=== PATIENT | female | born 1965 | race Hispanic/Latino ===

== ENCOUNTER → 2019-05-18 | Outpatient (CLI) | payer MEDICARE, OTHER ==
[~2019-05-18] MED LIST: CALCIUM CARBON500 MG PO; DICYCLOMINE HCL10 MG PO; FOLIC ACID1 MG PO; HYDROCODON-ACE1 EAC9 PO; HYDROXYCHLOROQ200 MG PO; IOPAMIDOL 370 MG/ML 200 ML INFUS..BTL INJ ONE; IRON PEG; LEVOTHYROXINE125 MCG PEG; METFORMIN HCL500 MG PO; MULTI-VITAMIN1 EACH PO; PANTOPRAZOLE SO40 MG PO; PREDNISONE5 MG PO; SODIUM CHLORIDE 0.9% 50ML 50 ML ONE; SPIRONOLACTONE25 MG PO; ULTRAM50 MG PO; VITAMIN B-121000 MCG PO; VITAMIN C500 M1 PO; VITAMIN D2400 UNIT PO; VITAMIN D31000 UNIT PO; VOLTAREN100 GM TOP; ZOFRAN8 MG PO
[2019-05-18 09:15] LABS: BLOOD UREA NITROGEN 10 mg/dL (7-26); BUN/CREATININE RATIO 11 (6-25); CREATININE, SERUM 0.92 mg/dL (0.57-1.11); EST GLOMERULAR FILTRATION RATE > 60 ML/MIN (60-)
--- NOTE | 2019-05-18 10:19 | Diagnostic Imaging Report ---
EXAM: CT Abdomen and Pelvis WITH intravenous contrast INDICATION: Abnormal weight loss, nausea, vomiting. Personal history of gastric cancer COMPARISON: None. TECHNIQUE: Abdomen and pelvis were scanned utilizing a multidetector helical scanner from the lung base to the pubic symphysis after administration of IV contrast. Coronal and sagittal reformations were obtained. Routine protocol was performed. Scan was performed when during portal venous phase. IV CONTRAST: 100mL of Isovue 370 ORAL CONTRAST: Water COMPLICATIONS: None RADIATION DOSE: Total DLP: 559.7 mGy*cm Dose modulation, iterative reconstruction, and/or weight based adjustment of the mA/kV was utilized to reduce the radiation dose to as low as reasonably achievable. FINDINGS: LOWER THORAX: No focal lung base consolidation. Atherosclerotic coronary artery calcifications. HEPATOBILIARY: Hepatic steatosis. No focal liver lesions. Status post cholecystectomy. SPLEEN: Diminutive spleen. PANCREAS: Fatty atrophy of the pancreatic tail. Pancreas head not well visualized. ADRENALS: No adrenal nodules. KIDNEYS/URETERS: No hydronephrosis, stones, or solid mass lesions. PELVIC ORGANS/BLADDER: Unremarkable. PERITONEUM / RETROPERITONEUM: No free air or fluid. LYMPH NODES: No lymphadenopathy. VESSELS: Atherosclerotic arterial calcifications, most notably an extremely densely calcified splenic artery. GI TRACT: Status post gastrectomy. No evidence of bowel obstruction. Mild wall thickening of the descending and sigmoid colon. BONES AND SOFT TISSUES: Mild diffuse muscular atrophy. Postoperative changes of the anterior abdominal wall. Age indeterminate T12 compression fracture. Multilevel degenerative changes of the spine. Diffuse osteopenia. No suspicious lytic or blastic lesions. IMPRESSION: Mild wall thickening of the descending and sigmoid colon could be seen in colitis. Postoperative changes of prior gastrectomy. Hepatic steatosis. Age-indeterminate T12 compression fracture. Signed by: Susi Kessler MD on 05/18/2019 10:16 AM
== END ==
LOC: CT 08:37
PROVIDERS: ATTEND Internal Medicine Gastroenterology
DX: R10.9 Unspecified abdominal pain (principal); R11.2 Nausea with vomiting, unspecified; R63.4 Abnormal weight loss; K76.0 Fatty (change of) liver, not elsewhere classified; Z85.09 Personal history of malignant neoplasm of other digestive organs
CPT/HCPCS: 36415; 74177; 82565; 84520; Q9967

== ENCOUNTER → 2019-06-06 | Day surgery (SDC) | payer MEDICARE ==
[2019-05-29 16:26] LABS: BASOPHILS % 0.6 % (0.0-1.0); EOSINOPHILS % 0.2 % (0.0-6.0); HEMATOCRIT 39.5 % (34.2-44.1); HEMOGLOBIN 13.2 g/dL (12.0-16.0); LYMPHOCYTES # (AUTO) 0.8 (1.0-3.2); MEAN CORPUSCULAR HEMOGLOBIN 33.9 pg (28-32); MEAN CORPUSCULAR HGB CONC 33.4 g/dL (31-35); MEAN CORPUSCULAR VOLUME 101.5 fL (81-99); MONOCYTES # (AUTO) 0.4 (0.2-0.8); MONOCYTES % 7.6 % (4.4-11.3); PLATELET COUNT 147 x10e3/uL (140-360); RED BLOOD COUNT 3.89 x10e6/uL (3.6-5.1); RED CELL DISTRIBUTION WIDTH 13.5 % (11.7-14.4)
[2019-05-29 16:42] LABS: INR 0.99; PROTHROMBIN TIME 13.6 seconds (11.9-14.5)
[2019-05-29 16:43] LABS: PARTIAL THROMBOPLASTIN TIME 30.7 seconds (23.8-35.5)
[2019-05-29 16:49] LABS: ALANINE AMINOTRANSFERASE 23 IU/L (0-55); ALBUMIN 3.1 g/dL (3.5-5.0); ALBUMIN/GLOBULIN RATIO 1.1 (0.8-2.0); ALKALINE PHOSPHATASE 103 IU/L (40-150); ANION GAP 9.5 mmol/L (8-16); BLOOD UREA NITROGEN 9 mg/dL (7-26); BUN/CREATININE RATIO 11 (6-25); CALCIUM 9.1 mg/dL (8.4-10.2); CARBON DIOXIDE 30 mmol/L (22-29); CHLORIDE 104 mmol/L (98-107); CREATININE, SERUM 0.82 mg/dL (0.57-1.11); EST GLOMERULAR FILTRATION RATE > 60 ML/MIN (60-); GLUCOSE 93 mg/dL (74-118); POTASSIUM 4.5 mmol/L (3.5-5.1); SODIUM 139 mmol/L (136-145)
[~2019-06-06] MED LIST changes: +FENTANYL CITRATE/PF 100MCG/2 ML INJ ONE; +HYOSCYAMINE 0.125 MG TAB ONE; -IOPAMIDOL 370 MG/ML 200 ML INFUS..BTL INJ ONE; +MIDAZOLAM HCL 2 MG/2 ML VIAL ONE; +PROPOFOL IV EMULSION 10 MG/ML 50 ML VIAL ONE; -SODIUM CHLORIDE 0.9% 50ML 50 ML ONE
--- OUTSIDE RECORDS SUMMARY | 2019-06-06 08:35 | XMS REPORT | Continuity of Care Document ---
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 Active Problem 06/02/2019 Prakash Moseleyer Lymphopenia Active Problem 06/02/2019 Prakash Jeanette Rheumatoid arthritis without rheumatoid factor, multiple sites Active Problem 06/02/2019 Prakash Moseleyer Sialoadenitis Active Problem 06/02/2019 Prakash Reid Acute bilateral low back pain without sciatica Active Diagnosis 04/21/2017 Prakash Reid Abnormal ultrasound of neck Active Diagnosis 07/22/2017 Prakash Jeanette Mass in neck Active Diagnosis 07/22/2017 Prakash Moseleyer Neck mass Active Problem 06/02/2019 Prakash Reid Need for prophylactic vaccination and inoculation against influenza Active Problem 06/02/2019 Prakash Reid 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 Active Diagnosis 04/06/2018 Prakash Jeanette rn long term care current use of opiate analgesic Active Diagnosis 06/21/2017 Prakash Jeanette Thoracic back pain Active Diagnosis 12/20/2017 Prakash Reid Lumbar back pain Active Diagnosis 12/20/2017 Prkaash Jeanette Neutropenia, unspecified Active Problem 09/18/2016 Prakash Jeanette Abnormal Lab Test Active Problem 09/18/2016 Prakash Moseleyer Osteoporosis, postmenopausal Active Problem 09/04/2015 Prakash Reid Unspecified drug dependence Active Problem 09/18/2016 Prakash Moseleyer Sjogren's Disease Active Problem 09/18/2016 Prakash Jeanette Rheumatoid arthritis Active Problem 09/18/2016 Prakash Reid Long-term (current) use of other medications - High Risk Active Problem 09/18/2016 Prakash Reid Postmenopausal status (age-related) Active Problem 09/18/2016 Prakash Reid Drug dependence Active Diagnosis 11/15/2015 Prakash Reid Influenza vaccine administered Active Diagnosis 11/15/2015 Prakash Reid Rheumatoid arthritis of multiple sites without rheumatoid factor Active Diagnosis 01/30/2016 Prakash Reid Encounter for long-term (current) use of other high-risk medications Active Diagnosis 01/30/2016 Prakash Reid Other abnormal glucose Active Diagnosis 08/26/2018 Prakash Reid Upper respiratory disease Active Diagnosis 09/29/2018 Prakash Reid Neck pain Active Diagnosis 07/29/2018 Prakash Reid Medications Medication Details Route Status Patient Instructions Ordering Provider Order Date Source Hydroxychloroquine Sulfate 2 TABLETS WITH FOOD OR MILK Orally Active 200 MG Orally Once a day Reid 06/01/2019 Prakash Reid PredniSONE 2 tablets Orally Active 5 MG Orally Once a day [place] 06/01/2019 Prakash Reid PredniSONE 2 tablets Orally Active 5 MG Orally Once a day [place] 03/13/2019 Prakash Reid Hydroxychloroquine Sulfate 2 TABLETS WITH FOOD OR MILK Orally Active 200 MG Orally Once a day [place] 02/28/2019 Prakash Reid Plaquenil 2 tablets Orally Active 200 MG Orally once a day [place] 12/20/2018 Prakash Reid Folic Acid 2 tablets Orally Active 1 MG Orally twice a day [place] 12/20/2018 Prakash Reid PredniSONE 2 tablets Orally Active 5 MG Orally Once a day [place] 12/13/2018 Prakash Reid Hydroxychloroquine Sulfate 2 TABLETS WITH FOOD OR MILK Orally Active 200 MG Orally Once a day [place] 12/13/2018 Prakash Reid Tramadol HCl 1 tablet Orally Active 50 MG Orally 3 times a day [place] 12/13/2018 Prakash Reid Amoxicillin 1 capsule Orally Active 500 MG Orally every 8 hrs [place] 09/25/2018 Prakash Reid Hydrocodone-Acetaminophen 1 tablet as needed Orally Active 10- 325 MG Orally three times a day [place] 05/27/2018 Prakash Reid Hydroxychloroquine Sulfate 2 TABLETS WITH FOOD OR MILK Orally Active 200 MG Orally Once a day [place] 04/13/2018 Prakash Reid Tramadol one tab orally Active 50 mg orally 4 - 6 hours as needed [place] 02/22/2018 Prakash Reid Cyclobenzaprine HCl 1 tablet as needed Orally Active 10 MG Orally Three times a day [place] 12/15/2017 Prakash Reid Plaquenil 2 tablets Orally Active 200 MG Orally once a day [place] 10/18/2017 Prakash Reid Tramadol one tab orally Active 50 mg orally 4 - 6 hours as needed [place] 10/18/2017 Prakash Reid Clindamycin HCl 1 capsule Orally Active 300 MG Orally every 8 hrs [place] 07/20/2017 Prakash Reid Hydrocodone-Acetaminophen 1 tablet as needed Orally Active 10- 325 MG Orally three times a day [place] 06/20/2017 Prakash Moseleyer Hydrocodone-Acetaminophen 1 tablet as needed Orally Active 10- 325 MG Orally three times a day [place] 06/20/2017 Prakash Reid Hydrocodone-Acetaminophen 1 tablet as needed Orally Active 10- 325 MG Orally three times a day [place] 06/16/2017 Prakash Reid PredniSONE 2 TABLETS with food or milk Orally Active 5 MG Orally Once a day [place] 05/23/2017 Prakash Reid Tramadol HCl 1 tablet Orally Active 50 MG Orally 3 times a day [place] 05/23/2017 Prakash Reid Hydroxychloroquine Sulfate 2 TABLETS WITH FOOD OR MILK Orally Active 200 MG Orally Once a day [place] 05/23/2017 Prakash Reid PredniSONE take 2 tablets by mouth once a day with food Orally Active 5 MG Orally Once a day [place] 03/15/2017 Prakash Reid Voltaren as directed Transdermal Active 1 % Transdermal Four times a day as needed [place] 12/14/2016 Prakash Reid Hydrocodone-Acetaminophen 1 tablet as needed Orally Active 10- 325 MG Orally three times a day [place] 08/18/2016 Prakash Reid Plaquenil take 2 tablets with food or milk once a day orally Orally Active 200 MG Orally Once a day [place] 08/15/2016 Prakash Reid Hydrocodone-Acetaminophen 1 tablet as needed Orally Active 10- 325 MG Orally three times a day [place] 06/16/2016 Prakash Reid [place] 1 tablet as needed Orally Active 10-325 MG Orally every 8 hours [place] 05/15/2016 Prakashrosa Reid [place] 1 tablet as needed Orally Active 10-325 MG Orally every 8 hours [place] 04/18/2016 Prakash Reid [place] 1 tablet as needed Orally Active 10-325 MG Orally every 6 hrs [place] 03/17/2016 Prakash Reid Tramadol HCl take one tablet Orally Active 50 MG Orally 3 times a day [place] 03/14/2016 Prakash Reid Plaquenil 2 tablet with food or milk Orally Active 200 MG Orally Once a day [place] 03/10/2016 Prakash Reid PredniSONE TAKE TWO TABLETS BY MOUTH DAILY WITH FOOD Orally Active 5 Orally Once a day [place] 03/10/2016 Prakash Reid Tramadol HCl Take One Tablet Orally Active 50 MG Orally 3 times a day [place] 03/10/2016 Prakash Reid PredniSONE TAKE TWO TABLETS BY MOUTH DAILY WITH FOOD Orally Active 5 Orally Once a day [place] 01/14/2016 Prakash Reid Hydrocodone-Acetaminophen 1 tablet as needed Orally Active 10- 325 MG Orally three times a day [place] 09/10/2015 Prakashrosa Reid Hydrocodone-Acetaminophen 1 tablet as needed Orally Active 10- 325 MG Orally three times a day [place] 07/12/2015 Prakash Reid Tramadol HCl Take one tablet Orally Active 50 Orally three times a day [place] 06/20/2015 Prakash Reid Methotrexate 5 tablets Orally Active 2.5mg Orally Once a week [facility] 12/12/2014 Prakash Reid Hydrocodone-Acetaminophen 1 tablet as needed Orally Active 10- 325 MG Orally three times a day [place] 12/07/2014 Prakash Reid Amoxicillin 1 capsule Orally Active 500 MG Orally Three times a day [facility] 11/14/2014 Prakashrosa Reid Hydrocodone-Acetaminophen 1 tablet as needed Orally Active 10- 325 MG Orally Three times a day [place] 10/11/2014 Prakash Reid Hydrocodone-Acetaminophen 1 tablet as needed Orally Active 10- 325 MG Orally three times a day [place] 10/09/2014 Prakashrosa Reid Tramadol HCl Take One Tablet Orally Active 50 MG Orally Three Times a day [facility] 07/03/2014 Prakash Reid Amoxicillin one caqpsule Orally Active 500 MG Orally tid [place] 02/11/2014 Prakash Reid [place] 1 tablet as needed for pain Orally Active 10-325 MG Orally three times a day (tid) [place] 07/23/2010 Prakash Reid Spironolactone 1 tablet Orally Active 25 MG Orally once a day [place] Prakash Reid Tramadol one tab orally Active 50 mg orally 4 - 6 hours as needed [place] Prakash Reid PredniSONE 2 tablets Orally Active 5 MG Orally Once a day [place] Prakash Reid Dicyclomine HCl 1 capsule Orally Active 10 MG Orally three times a day [place] Prakash Reid Plaquenil 2 tablets NA Active 200 MG once a day [place] [facility] Hydrocodone-Acetaminophen 1 tablet as needed Orally Active 10- 325 MG Orally three times a day [place] [facility] Vitamin C 1 tablet Orally Active 1000 MG Orally Once a day [place] [facility] Cal[facility] one tab orally Active 1000 mg orally daily [place] [facility] Folic Acid 2 tablets NA Active 1 MG twice a day [place] [facility] Iron 1 tablet Orally Active 65 MG Orally Once a day [place] [facility] Levoxyl 1 tablet of each NA Active 100mg/150mg once a day [place] [facility] Advil 1 tablet as needed Orally Active Orally as needed [place] [facility] Voltaren as directed Transdermal Active 1 % Transdermal Four times a day as needed [place] [facility] Multivitamins 1 tablet Orally Active Orally Once a day [place] [facility] Vitamin D (Ergocalciferol) 1 capsule Orally Active 50,000 Orally once a week [place] [facility] Vitamin D-3 1 capsule Orally Active 1000 UNIT Orally Once a day [place] [facility] Zofran as needed Orally Active 8 MG Orally as needed [place] [facility] Vitamin B12 as directed Sublingual Active Sublingual Once a day [place] [facility] Vitamin D (Ergocalciferol) 1 capsule Orally Active 24724 UNIT Orally once a week [place] [facility] Zofran as needed Orally Active 8 MG Orally as needed [place] [facility] Spironolactone 1 tablet Orally Active 25 MG Orally once a day [place] [facility] Vitamin D-3 1 capsule Orally Active 1000 UNIT Orally Once a day [place] [facility] Advil 1 tablet as needed Orally Active Orally as needed [place] [facility] Levoxyl 1 tablet of each NA Active 100mg/150mg once a day [place] [facility] PredniSONE 2 tablets Orally Active 5 MG Orally Once a day [place] [facility] Plaquenil TAKE 2 TABLETS BY MOUTH ONCE A DAY NA Active 200 MG [place] [facility] Multivitamins 1 tablet Orally Active Orally Once a day [place] [facility] Hydrocodone-Acetaminophen 1 tablet as needed Orally Active 10- 325 MG Orally three times a day [place] Prakash Reid Voltaren as directed Transdermal Active 1 % Transdermal Four times a day as needed [place] Prakash Reid Dicyclomine HCl 1 capsule Orally Active 10 MG Orally three times a day [place] Prakash Moseleyer Folic Acid 2 tablets Orally Active 1 MG Orally twice a day [place] Prakash Moseleyer Vitamin B12 as directed Sublingual Active Sublingual Once a day [place] Prakash Moseleyer Vitamin C 1 tablet Orally Active 1000 MG Orally Once a day [place] Prakash Reid PredniSONE 2 tablets Orally Active 5 MG Orally Once a day [place] Prakash Reid Plaquenil 2 tablets Orally Active 200 MG [facility] Diabetic Siltussin-DM 10 ml as needed Orally Active 100-10 MG/5ML Orally every 4 hrs [place] Prakash Reid Tramadol HCl 1 tablet as needed Orally Active 50 MG Orally TID [place] Prakash Reid Diclofenac Sodium apply topically Transdermal Active 1 % Transdermal 4 times daily to affected area prn [place] Prakash Reid Folic Acid 2 tablets orally Active 1 MG orally twice a day [place] Prakash Reid Zovia 35E (28) 1 tablet NA Active once a day [place] Prakash Reid Folic Acid TAKE TWO TABLETS BY MOUTH TWICE A DAY NA Active 1 [place] Prakash Reid Levoxyl 1 tablet of each NA Active 100mg/150mg once a day [place] Prakash Reid Hydrocodone-Acetaminophen 1 tablet as needed Orally Active 10- 325 MG Orally three times a day [facility] Prakash Reid PredniSONE TAKE ONE TABLET BY MOUTH EVERY DAY WITH FOOD NA Active 5 [place] Prakash Reid Hydroxychloroquine Sulfate TAKE TWO TABLETS BY MOUTH EVERY DAY WITH FOOD OR DRINK NA Active 200 [place] Prakash Reid Vitamin D (Ergocalciferol) 1 capsule Orally Active 07843 UNIT Orally once a week [facility] Prakash Reid Iron as directed Orally Active 65 MG Orally once a day [place] Prakash Reid Tramadol HCl Take One Tablet Orally Active 50 MG Orally 3 times a day [place] Prakashrosa eRid Plaquenil take 2 tablets with food or milk once a day orally Orally Active 200 MG Orally Once a day [place] Praaksh Reid Vitamin D (Ergocalciferol) TAKE ONE CAPSULE BY MOUTH ONCE WEEKLY NA Active 50,000 [place] Prakash Reid Voltaren as directed Transdermal Active 1 % Transdermal prn [place] Prakash Reid Hydroxychloroquine Sulfate TAKE TWO TABLETS BY MOUTH DAILY WITH FOOD OR DRINK NA Active 200 [place] Prakash Reid PredniSONE take two ablets by mouth every day with food Orally Active 5 MG Orally Once a day [place] Prakash Reid Calcium one tab orally Active 1000 mg orally daily [place] Prakash Reid Amlodipine Besylate 1 tablet Orally Active 5 MG Orally Once a day [place] Prakash Reid Tramadol one tab orally Active 50 mg orally 4 - 6 hours as needed [place] Prakash Reid PredniSONE 2 tablets Orally Active 5 MG Orally Once a day [place] Prakash Reid Oxycodone-Acetaminophen 1 tablet as needed Orally Active 10-325 MG Orally every 6 hrs [place] Prakash Reid Hydroxychloroquine Sulfate 2 TABLETS WITH FOOD OR MILK Orally Active 200 MG Orally Once a day [place] Prakash Reid Omeprazole 1 capsule Orally Active 20 MG Orally Once a day [place] Prakash Reid Levoxyl 1 tablet of each Orally Active 125 MCG Orally once a day [place] Prakash Reid Allergies, Adverse Reactions, Alerts Substance Category Reaction Severity Reaction type Status Date Reported Comments Source Enbrel SureClick Adverse Reaction developed stomach cancer after initiation Adverse Reaction Active 03/28/2019 Prakash Reid Sulfa Adverse Reaction itching Adverse Reaction Active 03/28/2019 Prakash Reid Immunizations Immunization Date Given Site Status Last Updated Comments Source Flu Vaccine 08/24/2018 completed Prakash Reid Flu Vaccine 08/18/2017 completed Prakash Reid Flu Vaccine 07/19/2016 completed Prakash Reid Flu Vaccine 08/11/2015 completed Prakash Reid Results No Data Provided for This Section Pathology Reports No Data Provided for This Section Diagnostic Reports No Data Provided for This Section Consultation Notes No Data Provided for This Section Discharge Summaries No Data Provided for This Section History and Physicals No Data Provided for This Section Vital Signs Vital Sign Value Date Comments Source Weight 171.2 03/28/2019 Prakash Reid Height 63 03/28/2019 Prakash Reid Temperature Oral (F) 98.7 F 03/28/2019 Prakash Reid Heart Rate 80 03/28/2019 Prakash Reid Diastolic (mm Hg) 78 03/28/2019 Prakash Reid Systolic (mm Hg) 118 03/28/2019 Prakash Reid Weight 175.9 02/26/2019 Prakash Reid Height 64 02/26/2019 Prakash Reid Temperature Oral (F) 97.9 F 02/26/2019 Prakash Reid Heart Rate 74 02/26/2019 Prakash Reid Diastolic (mm Hg) 68 02/26/2019 Prakash Reid Systolic (mm Hg) 110 02/26/2019 Prakash Reid Weight 172.2 12/26/2018 Prakash Reid Height 64 12/26/2018 Prakash Reid Temperature Oral (F) 97.0 F 12/26/2018 Prakash Reid Heart Rate 72 12/26/2018 Prakash Reid Diastolic (mm Hg) 64 12/26/2018 Prakash Reid Systolic (mm Hg) 108 12/26/2018 Prakash Reid Weight 172.6 11/28/2018 Prakash Reid Height 63 11/28/2018 Prakash Reid Temperature Oral (F) 97.3 F 11/28/2018 Prakash Reid Heart Rate 72 11/28/2018 Prakash Reid Diastolic (mm Hg) 64 11/28/2018 Prakash Reid Systolic (mm Hg) 105 11/28/2018 Prakash Reid Weight 181.7 10/23/2018 Prakash Reid Height 63 10/23/2018 Prakash Reid Temperature Oral (F) 98.1 F 10/23/2018 Prakash Reid Heart Rate 70 10/23/2018 Prakash Reid Diastolic (mm Hg) 68 10/23/2018 Prakash Reid Systolic (mm Hg) 110 10/23/2018 Prakash Reid Weight 179.6 09/25/2018 Prakash Reid Height 63 09/25/2018 Prakash Reid Temperature Oral (F) 98.7 F 09/25/2018 Prakash Reid Heart Rate 73 09/25/2018 Prakash Reid Diastolic (mm Hg) 70 09/25/2018 Prakash Reid Systolic (mm Hg) 110 09/25/2018 Prakash Reid Weight 184.7 08/24/2018 Prakash Reid Height 64.5 08/24/2018 Prakash Reid Temperature Oral (F) 97.1 F 08/24/2018 Prakash Reid Heart Rate 74 08/24/2018 Prakash Reid Diastolic (mm Hg) 80 08/24/2018 Prakash Reid Systolic (mm Hg) 122 08/24/2018 Prakash Reid Weight 189.7 07/24/2018 Prakash Reid Height 64.5 07/24/2018 Prakash Reid Temperature Oral (F) 97.8 F 07/24/2018 Prakash Reid Heart Rate 76 07/24/2018 Prakash Reid Diastolic (mm Hg) 80 07/24/2018 Prakash Reid Systolic (mm Hg) 120 07/24/2018 Prakash Reid Weight 189 06/28/2018 Prakash Reid Height 64.5 06/28/2018 Prakash Reid Temperature Oral (F) 98.3 F 06/28/2018 Prakash Reid Heart Rate 80 06/28/2018 Prakash Reid Diastolic (mm Hg) 78 06/28/2018 Prakash Reid Systolic (mm Hg) 116 06/28/2018 Prakash Reid Weight 198.2 05/23/2018 Prakash Reid Height 63.5 05/23/2018 Prakash Reid Temperature Oral (F) 97.9 F 05/23/2018 Prakash Reid Heart Rate 76 05/23/2018 Prakash Reid Diastolic (mm Hg) 68 05/23/2018 Prakash Reid Systolic (mm Hg) 142 05/23/2018 Prakash Reid Weight 200.1 04/27/2018 Prakash Reid Height 63.5 04/27/2018 Prakash Reid Temperature Oral (F) 98.1 F 04/27/2018 Prakash Reid Heart Rate 74 04/27/2018 Prakash Reid Diastolic (mm Hg) 70 04/27/2018 Prakash Reid Systolic (mm Hg) 110 04/27/2018 Prakash Reid Weight 197.3 03/24/2018 Prakash Reid Height 63.5 03/24/2018 Prakash Reid Temperature Oral (F) 97.5 F 03/24/2018 Prakash Reid Heart Rate 70 03/24/2018 Prakash Reid Diastolic (mm Hg) 70 03/24/2018 Prakash Reid Systolic (mm Hg) 102 03/24/2018 Prakash Reid Weight 196 02/23/2018 Prakash Reid Height 63.5 02/23/2018 Prakash Reid Temperature Oral (F) 97.3 F 02/23/2018 Prakash Reid Heart Rate 68 02/23/2018 Prakash Reid Diastolic (mm Hg) 72 02/23/2018 Prakash Reid Systolic (mm Hg) 116 02/23/2018 Prakash Reid Weight 196 01/16/2018 Prakash Reid Height 65 01/16/2018 Prakash Reid Temperature Oral (F) 97.1 F 01/16/2018 Prakash Reid Heart Rate 76 01/16/2018 Prakash Reid Diastolic (mm Hg) 74 01/16/2018 Prakash Reid Systolic (mm Hg) 118 01/16/2018 Prakash Reid Weight 198.6 12/15/2017 Prakash Reid Height 64 12/15/2017 Prakash Reid Temperature Oral (F) 97.4 F 12/15/2017 Prakash Reid Heart Rate 78 12/15/2017 Prakash Reid Diastolic (mm Hg) 70 12/15/2017 Prakash Reid Systolic (mm Hg) 110 12/15/2017 Prakash Reid Weight 195.2 11/24/2017 Prakash Reid Height 64 11/24/2017 Prakash Reid Temperature Oral (F) 97.8 F 11/24/2017 Prakash Reid Heart Rate 80 11/24/2017 Prakash Reid Diastolic (mm Hg) 74 11/24/2017 Prakash Reid Systolic (mm Hg) 100 11/24/2017 Prakash Reid Weight 199.5 10/18/2017 Prakash Reid Height 64 10/18/2017 Prakash Reid Temperature Oral (F) 97.6 F 10/18/2017 Prakash Reid Heart Rate 82 10/18/2017 Prakash Reid Diastolic (mm Hg) 68 10/18/2017 Prakash Reid Systolic (mm Hg) 100 10/18/2017 Prakash Reid Weight 195.0 09/19/2017 Prakash Reid Height 64 09/19/2017 Prakash Reid Temperature Oral (F) 98.2 F 09/19/2017 Prakash Reid Heart Rate 80 09/19/2017 Prakash Reid Diastolic (mm Hg) 74 09/19/2017 Prakash Reid Systolic (mm Hg) 102 09/19/2017 Prakash Reid Weight 200.9 08/18/2017 Prakash Reid Height 64 08/18/2017 Prakash Reid Temperature Oral (F) 98.1 F 08/18/2017 Prakash Reid Heart Rate 80 08/18/2017 Prakash Reid Diastolic (mm Hg) 60 08/18/2017 Prakash Reid Systolic (mm Hg) 110 08/18/2017 Prakash Reid Weight 203.7 07/20/2017 Prakash Reid Height 66 07/20/2017 Prakash Reid Temperature Oral (F) 97.3 F 07/20/2017 Prakash Reid Heart Rate 76 07/20/2017 Prakash Reid Diastolic (mm Hg) 70 07/20/2017 Prakash Reid Systolic (mm Hg) 118 07/20/2017 Prakash Reid Weight 199.2 06/20/2017 Prakash Reid Height 66 06/20/2017 Prakash Reid Temperature Oral (F) 97.4 F 06/20/2017 Prakash Reid Heart Rate 70 06/20/2017 Prakash Reid Diastolic (mm Hg) 76 06/20/2017 Prakash Reid Systolic (mm Hg) 120 06/20/2017 Prakash Reid Weight 197.7 05/17/2017 Prakash Reid Height 65 05/17/2017 Prakash Reid Temperature Oral (F) 97.5 F 05/17/2017 Prakash Reid Heart Rate 70 05/17/2017 Prakash Reid Diastolic (mm Hg) 70 05/17/2017 Prakash Reid Systolic (mm Hg) 110 05/17/2017 Prakash Reid Weight 204 04/18/2017 Prakash Reid Height 65 04/18/2017 Prakash Reid Temperature Oral (F) 97.6 F 04/18/2017 Prakash Reid Heart Rate 76 04/18/2017 Prakash Reid Diastolic (mm Hg) 72 04/18/2017 Prakash Reid Systolic (mm Hg) 120 04/18/2017 Prakash Reid Weight 201.9 03/17/2017 Prakash Reid Height 65 03/17/2017 Prakash Reid Temperature Oral (F) 98.4 F 03/17/2017 Prakash Reid Heart Rate 72 03/17/2017 Prakash Reid Diastolic (mm Hg) 70 03/17/2017 Prakash Reid Systolic (mm Hg) 112 03/17/2017 Prakash Reid Weight 201 02/14/2017 Prakash Reid Height 66 02/14/2017 Prakash Reid Temperature Oral (F) 98.1 F 02/14/2017 Prakash Reid Heart Rate 80 02/14/2017 Prakash Reid Diastolic (mm Hg) 70 02/14/2017 Prakash Reid Systolic (mm Hg) 120 02/14/2017 Prakash Reid Weight 201 01/17/2017 Prakash Reid Height 66 01/17/2017 Prakash Reid Temperature Oral (F) 97.9 F 01/17/2017 Prakash Reid Heart Rate 76 01/17/2017 Prakash Reid Diastolic (mm Hg) 70 01/17/2017 Prakash Reid Systolic (mm Hg) 100 01/17/2017 Prakash Reid Weight 197 12/15/2016 Prakash Reid Height 66 12/15/2016 Prakash Reid Temperature Oral (F) 97.7 F 12/15/2016 Prakash Reid Heart Rate 70 12/15/2016 Prakash Reid Diastolic (mm Hg) 70 12/15/2016 Prakash Reid Systolic (mm Hg) 108 12/15/2016 Prakash Reid Weight 196 11/17/2016 Prakash Reid Height 65 11/17/2016 Prakash Reid Temperature Oral (F) 98.4 F 11/17/2016 Prakash Reid Heart Rate 72 11/17/2016 Prakash Reid Diastolic (mm Hg) 70 11/17/2016 Prakash Reid Systolic (mm Hg) 112 11/17/2016 Prakash Reid Weight 195 10/15/2016 Prakash Reid Height 65 10/15/2016 Prakash Reid Temperature Oral (F) 97.9 F 10/15/2016 Prakash Reid Heart Rate 70 10/15/2016 Prakash Reid Diastolic (mm Hg) 68 10/15/2016 Prakash Reid Systolic (mm Hg) 112 10/15/2016 Prakash Reid Weight 197.4 09/16/2016 Prakash Reid Height 65 09/16/2016 Prakash Reid Temperature Oral (F) 97.3 F 09/16/2016 Prakash Reid Heart Rate 70 09/16/2016 Prakash Reid Diastolic (mm Hg) 70 09/16/2016 Prakash Reid Systolic (mm Hg) 110 09/16/2016 Prakash Reid Weight 203 08/18/2016 Prakash Reid Height 66 08/18/2016 Prakash Reid Temperature Oral (F) 97.7 F 08/18/2016 Prakash Reid Heart Rate 70 08/18/2016 Prakash Reid Diastolic (mm Hg) 60 08/18/2016 Prakash Reid Systolic (mm Hg) 102 08/18/2016 Prakash Reid Weight 196 07/19/2016 Prakash Reid Height 66 07/19/2016 Prakash Reid Temperature Oral (F) 97.9 F 07/19/2016 Prakash Reid Heart Rate 72 07/19/2016 Prakash Reid Diastolic (mm Hg) 68 07/19/2016 Prakash Reid Systolic (mm Hg) 116 07/19/2016 Prakash Reid Weight 198 06/17/2016 Prakash Reid Height 66 06/17/2016 Prakash Reid Temperature Oral (F) 97.1 F 06/17/2016 Prakash Reid Heart Rate 76 06/17/2016 Prakash Reid Diastolic (mm Hg) 72 06/17/2016 Prakash Reid Systolic (mm Hg) 110 06/17/2016 Prakash Reid Weight 201 05/17/2016 Prakash Reid Height 65 05/17/2016 Prakash Reid Temperature Oral (F) 98.4 F 05/17/2016 Prakash Reid Heart Rate 80 05/17/2016 Prakash Reid Diastolic (mm Hg) 60 05/17/2016 Prakash Reid Systolic (mm Hg) 108 05/17/2016 Prakash Reid Weight 200 04/15/2016 Prakash Reid Height 66 04/15/2016 Prakash Reid Temperature Oral (F) 96.8 F 04/15/2016 Prakash Reid Heart Rate 80 04/15/2016 Prakash Reid Diastolic (mm Hg) 60 04/15/2016 Prakash Reid Systolic (mm Hg) 120 04/15/2016 Prakash Reid Weight 196.9 03/19/2016 Prakash Reid Height 66 03/19/2016 Prakash Reid Temperature Oral (F) 96.6 F 03/19/2016 Prakash Reid Heart Rate 72 03/19/2016 Prakash Reid Diastolic (mm Hg) 72 03/19/2016 Prakash Reid Systolic (mm Hg) 112 03/19/2016 Prakash Reid Weight 199 02/16/2016 Prakash Reid Height 66 02/16/2016 Prakash Reid Temperature Oral (F) 98.3 F 02/16/2016 Prakash Reid Heart Rate 72 02/16/2016 Prakash Reid Diastolic (mm Hg) 70 02/16/2016 Prakash Reid Systolic (mm Hg) 122 02/16/2016 Prakash Reid Weight 188 01/12/2016 Prakash Reid Height 66 01/12/2016 Prakash Reid Temperature Oral (F) 97.7 F 01/12/2016 Prakash Reid Heart Rate 72 01/12/2016 Prakash Reid Diastolic (mm Hg) 70 01/12/2016 Prakash Reid Systolic (mm Hg) 118 01/12/2016 Prakash Reid Weight 197 12/12/2015 Prakash Reid Height 66 12/12/2015 Prakash Reid Temperature Oral (F) 98.1 F 12/12/2015 Prakash Reid Heart Rate 76 12/12/2015 Prakash Reid Diastolic (mm Hg) 73 12/12/2015 Prakash Reid Systolic (mm Hg) 113 12/12/2015 Prakash Reid Weight 195 11/13/2015 Prakash Reid Height 66 11/13/2015 Prakash Reid Temperature Oral (F) 97.8 F 11/13/2015 Prakash Reid Heart Rate 72 11/13/2015 Prakash Reid Diastolic (mm Hg) 74 11/13/2015 Prakash Reid Systolic (mm Hg) 110 11/13/2015 Prakash Reid Weight 206 09/12/2015 Prakash Reid Height 66 09/12/2015 Prakash Reid Temperature Oral (F) 98.1 F 09/12/2015 Prakash Reid Heart Rate 76 09/12/2015 Prakash Redi Diastolic (mm Hg) 72 09/12/2015 Prakash Reid Systolic (mm Hg) 112 09/12/2015 Prakash Reid Weight 199 08/11/2015 Prakash Reid Height 66 08/11/2015 Prakash Reid Temperature Oral (F) 97.6 F 08/11/2015 Prakash Reid Heart Rate 78 08/11/2015 Prakash Reid Diastolic (mm Hg) 76 08/11/2015 Prakash Reid Systolic (mm Hg) 110 08/11/2015 Prakash Reid Weight 206 06/12/2015 Prakash Reid Height 66 06/12/2015 Prakash Reid Temperature Oral (F) 98.2 F 06/12/2015 Prakash Reid Heart Rate 72 06/12/2015 Prakash Reid Diastolic (mm Hg) 80 06/12/2015 Prakash Reid Systolic (mm Hg) 124 06/12/2015 Prakash Reid Weight 209 04/15/2015 Prakash Reid Height 66 04/15/2015 Prakash Reid Temperature Oral (F) 98.0 F 04/15/2015 Prakash Reid Heart Rate 78 04/15/2015 Prakash Reid Diastolic (mm Hg) 72 04/15/2015 Prakash Reid Systolic (mm Hg) 112 04/15/2015 Prakash Reid Weight 203 02/13/2015 Prakash Reid Height 66 02/13/2015 Prakash Reid Temperature Oral (F) 98.4 F 02/13/2015 Prakash Reid Heart Rate 84 02/13/2015 Prakash Reid Diastolic (mm Hg) 72 02/13/2015 Prakash Reid Systolic (mm Hg) 114 02/13/2015 Prakash Reid Weight 214 12/12/2014 Prakash Reid Height 66 12/12/2014 Prakash Reid Temperature Oral (F) 98.6 F 12/12/2014 Prakash Reid Heart Rate 70 12/12/2014 Prakash Reid Diastolic (mm Hg) 70 12/12/2014 Prakash Reid Systolic (mm Hg) 120 12/12/2014 Prakash Reid Weight 204 11/14/2014 Prakash Reid Height 66 11/14/2014 Prakash Reid Temperature Oral (F) 98.6 F 11/14/2014 Prakash Reid Heart Rate 74 11/14/2014 Prakash Reid Diastolic (mm Hg) 82 11/14/2014 Prakash Reid Systolic (mm Hg) 116 11/14/2014 Prakash Reid Weight 234 02/11/2014 Prakash Reid Height 65 02/11/2014 Prakash Reid Temperature Oral (F) 97.7 F 02/11/2014 Prakash Reid Heart Rate 80 02/11/2014 Prakash Reid Diastolic (mm Hg) 80 02/11/2014 Prakash Reid Systolic (mm Hg) 128 02/11/2014 Prakash Reid Encounters Location Location Details Encounter Type Encounter Number Reason For Visit Attending Provider ADM Date DC Date Status Source Robert Reid MD 4m f/u [id number] 02/11/2014 02/11/2014 Prakash Reid MD 4m f/u [id number] 02/11/2014 02/11/2014 Prakash Reid MD 4m f/u [id number] 02/11/2014 02/11/2014 Prakash Reid MD 4m f/u [id number] 02/11/2014 02/11/2014 Prakash Reid MD 4m f/u [id number] 02/11/2014 02/11/2014 Prakash Reid MD 4m f/u [id number] 02/11/2014 02/11/2014 Prakash Reid MD 4m f/u [id number] 02/11/2014 02/11/2014 Prakash Reid MD 4m f/u [id number] 02/11/2014 02/11/2014 Prakash Reid MD 4m f/u [id number] 02/11/2014 02/11/2014 Prakash Reid MD 4m f/u [id number] 02/11/2014 02/11/2014 Prakash Reid MD 4m f/u [id number] 02/11/2014 02/11/2014 Prakash Reid MD 4m f/u [id number] 02/11/2014 02/11/2014 Prakash Reid MD 4m f/u [id number] 02/11/2014 02/11/2014 Prakash Reid MD 4m f/u [id number] 02/11/2014 02/11/2014 Prakash Reid MD 4m f/u [id number] 02/11/2014 02/11/2014 Prakash Reid MD 4m f/u [id number] 02/11/2014 02/11/2014 Prakash Reid MD 4m f/u [id number] 02/11/2014 02/11/2014 Prakash Reid MD 4m f/u [id number] 02/11/2014 02/11/2014 Prakash Reid MD 4m f/u [id number] 02/11/2014 02/11/2014 Prakash Reid MD 4m f/u [id number] 02/11/2014 02/11/2014 Prakash Reid MD 4m f/u [id number] 02/11/2014 02/11/2014 Prakash Reid MD 4m f/u [id number] 02/11/2014 02/11/2014 Prakash Reid MD 4m f/u [id number] 02/11/2014 02/11/2014 Prakash Reid MD 4m f/u [id number] 02/11/2014 02/11/2014 Prakash Reid MD 4m f/u [id number] 02/11/2014 02/11/2014 Prakash Reid MD 4m f/u [id number] 02/11/2014 02/11/2014 Prakash Reid MD 4m f/u [id number] 02/11/2014 02/11/2014 Prakash Reid MD 4m f/u [id number] 02/11/2014 02/11/2014 Prakash Reid MD 4m f/u [id number] 02/11/2014 02/11/2014 Prakash Reid MD 4m f/u [id number] 02/11/2014 02/11/2014 Prakash Reid MD 4m f/u [id number] 02/11/2014 02/11/2014 Prakash Reid MD 4m f/u [id number] 02/11/2014 02/11/2014 Prakash Reid MD 4m f/u [id number] 02/11/2014 02/11/2014 Prakash Reid MD 4m f/u [id number] 02/11/2014 02/11/2014 Prakash Reid MD 4m f/u [id number] 02/11/2014 02/11/2014 Prakash Reid MD 4m f/u [id number] 02/11/2014 02/11/2014 Prakash Reid MD 4m f/u [id number] 02/11/2014 02/11/2014 Prakash Reid MD 4m f/u [id number] 02/11/2014 02/11/2014 Prakash Reid MD 4m f/u [id number] 02/11/2014 02/11/2014 Prakash Reid MD 4m f/u [id number] 02/11/2014 02/11/2014 Prakash Reid MD 4m f/u [id number] 02/11/2014 02/11/2014 Prakash Reid MD [facility] [id number] 02/15/2014 02/15/2014 Prakash Reid MD [facility] [id number] 02/15/2014 02/15/2014 Prakash Reid MD [facility] [id number] 02/15/2014 02/15/2014 Prakash Reid MD [facility] [id number] 02/15/2014 02/15/2014 Prakash Reid MD [facility] [id number] 02/15/2014 02/15/2014 Prakash Reid MD [facility] [id number] 02/15/2014 02/15/2014 Prakash Reid MD [facility] [id number] 02/15/2014 02/15/2014 Prakash Reid MD [facility] [id number] 02/15/2014 02/15/2014 Prakash Reid MD [facility] [id number] 02/15/2014 02/15/2014 Prakash Reid MD [facility] [id number] 02/15/2014 02/15/2014 Prakash Reid MD [facility] [id number] 02/15/2014 02/15/2014 Prakash Reid MD [facility] [id number] 02/15/2014 02/15/2014 Prakash Reid MD [facility] [id number] 02/15/2014 02/15/2014 Prakash Reid MD [facility] [id number] 02/15/2014 02/15/2014 Prakash Reid MD [facility] [id number] 02/15/2014 02/15/2014 Prakash Reid MD [facility] [id number] 02/15/2014 02/15/2014 Prakash Reid MD [facility] [id number] 02/15/2014 02/15/2014 Prakash Reid MD [facility] [id number] 02/15/2014 02/15/2014 Prakash Reid MD [facility] [id number] 02/15/2014 02/15/2014 Prakash Reid MD [facility] [id number] 02/15/2014 02/15/2014 Prakash Reid MD [facility] [id number] 02/15/2014 02/15/2014 Prakash Reid MD [facility] [id number] 02/15/2014 02/15/2014 Prakash Reid MD [facility] [id number] 02/15/2014 02/15/2014 Prakash Reid MD [facility] [id number] 02/15/2014 02/15/2014 Prakash Reid MD [facility] [id number] 02/15/2014 02/15/2014 Prakash Reid MD [facility] [id number] 02/15/2014 02/15/2014 Prakash Reid MD [facility] [id number] 02/15/2014 02/15/2014 Prakash Reid MD [facility] [id number] 02/15/2014 02/15/2014 Prakash Reid MD [facility] [id number] 02/15/2014 02/15/2014 Prakash Reid MD [facility] [id number] 02/15/2014 02/15/2014 Prakash Reid MD [facility] [id number] 02/15/2014 02/15/2014 Prakash Reid MD [facility] [id number] 02/15/2014 02/15/2014 Prakash Reid MD [facility] [id number] 02/15/2014 02/15/2014 Prakash Reid MD [facility] [id number] 02/15/2014 02/15/2014 Prakash Reid MD [facility] [id number] 02/15/2014 02/15/2014 Prakash Reid MD [facility] [id number] 02/15/2014 02/15/2014 Prakash Reid MD [facility] [id number] 02/15/2014 02/15/2014 Prakash Reid MD [facility] [id number] 02/15/2014 02/15/2014 Prakash Reid MD [facility] [id number] 02/15/2014 02/15/2014 Prakash Reid MD [facility] [id number] 02/15/2014 02/15/2014 Prakash Reid MD [facility] [id number] 02/15/2014 02/15/2014 Prakash Reid MD folic acid [id number] 02/18/2014 02/18/2014 Prakash Reid MD folic acid [id number] 02/18/2014 02/18/2014 Prakash Reid MD folic acid [id number] 02/18/2014 02/18/2014 Prakash Reid MD folic acid [id number] 02/18/2014 02/18/2014 Prakash Reid MD folic acid [id number] 02/18/2014 02/18/2014 Prakash Reid MD folic acid [id number] 02/18/2014 02/18/2014 Prakash Reid MD folic acid [id number] 02/18/2014 02/18/2014 Prakash Reid MD folic acid [id number] 02/18/2014 02/18/2014 Prakash Reid MD folic acid [id number] 02/18/2014 02/18/2014 Prakash Reid MD folic acid [id number] 02/18/2014 02/18/2014 Prakash Reid MD folic acid [id number] 02/18/2014 02/18/2014 Prakash Reid MD folic acid [id number] 02/18/2014 02/18/2014 Prakash Reid MD folic acid [id number] 02/18/2014 02/18/2014 Prakash Reid MD folic acid [id number] 02/18/2014 02/18/2014 Prakash Reid MD folic acid [id number] 02/18/2014 02/18/2014 Prakash Reid MD folic acid [id number] 02/18/2014 02/18/2014 Prakash Reid MD folic acid [id number] 02/18/2014 02/18/2014 Prakash Reid MD folic acid [id number] 02/18/2014 02/18/2014 Prakash Reid MD folic acid [id number] 02/18/2014 02/18/2014 Prakash Reid MD folic acid [id number] 02/18/2014 02/18/2014 Prakash Reid MD folic acid [id number] 02/18/2014 02/18/2014 Prakash Reid MD folic acid [id number] 02/18/2014 02/18/2014 Prakash Reid MD folic acid [id number] 02/18/2014 02/18/2014 Prakash Reid MD folic acid [id number] 02/18/2014 02/18/2014 Prakash Reid MD folic acid [id number] 02/18/2014 02/18/2014 Prakash Reid MD folic acid [id number] 02/18/2014 02/18/2014 Prakash Reid MD folic acid [id number] 02/18/2014 02/18/2014 Prakash Reid MD folic acid [id number] 02/18/2014 02/18/2014 Prakash Reid MD folic acid [id number] 02/18/2014 02/18/2014 Prakash Reid MD folic acid [id number] 02/18/2014 02/18/2014 Prakash Reid MD folic acid [id number] 02/18/2014 02/18/2014 Prakash Reid MD folic acid [id number] 02/18/2014 02/18/2014 Prakash Reid MD folic acid [id number] 02/18/2014 02/18/2014 Prakash Reid MD folic acid [id number] 02/18/2014 02/18/2014 Prakash Reid MD folic acid [id number] 02/18/2014 02/18/2014 Prakash Reid MD folic acid [id number] 02/18/2014 02/18/2014 Prakash Reid MD folic acid [id number] 02/18/2014 02/18/2014 Prakash Reid MD folic acid [id number] 02/18/2014 02/18/2014 Prakash Reid MD folic acid [id number] 02/18/2014 02/18/2014 Prakash Reid MD RX Refill Request [id number] 06/25/2014 06/25/2014 Prakash Reid MD RX Refill Request [id number] 06/25/2014 06/25/2014 Prakash Reid MD RX Refill Request [id number] 06/25/2014 06/25/2014 Prakash Reid MD RX Refill Request [id number] 06/25/2014 06/25/2014 Prakash Reid MD RX Refill Request [id number] 06/25/2014 06/25/2014 Prakash Reid MD RX Refill Request [id number] 06/25/2014 06/25/2014 Prakash Reid MD RX Refill Request [id number] 06/25/2014 06/25/2014 Prakash Reid MD RX Refill Request [id number] 06/25/2014 06/25/2014 Prakash Reid MD RX Refill Request [id number] 06/25/2014 06/25/2014 Prakash Reid MD RX Refill Request [id number] 06/25/2014 06/25/2014 Prakash Reid MD RX Refill Request [id number] 06/25/2014 06/25/2014 Prakash Reid MD RX Refill Request [id number] 06/25/2014 06/25/2014 Prakash Reid MD RX Refill Request [id number] 06/25/2014 06/25/2014 Prakash Reid MD RX Refill Request [id number] 06/25/2014 06/25/2014 Prakash Reid MD RX Refill Request [id number] 06/25/2014 06/25/2014 Prakash Reid MD RX Refill Request [id number] 06/25/2014 06/25/2014 Prakash Reid MD RX Refill Request [id number] 06/25/2014 06/25/2014 Prakash Reid MD RX Refill Request [id number] 06/25/2014 06/25/2014 Prakash Reid MD RX Refill Request [id number] 06/25/2014 06/25/2014 Prakash Reid MD RX Refill Request [id number] 06/25/2014 06/25/2014 Prakash Reid MD RX Refill Request [id number] 06/25/2014 06/25/2014 Prakash Reid MD RX Refill Request [id number] 06/25/2014 06/25/2014 Prakash Reid MD RX Refill Request [id number] 06/25/2014 06/25/2014 Prakash Reid MD RX Refill Request [id number] 06/25/2014 06/25/2014 Prakash Reid MD RX Refill Request [id number] 06/25/2014 06/25/2014 Prakash Reid MD RX Refill Request [id number] 06/25/2014 06/25/2014 Prakash Reid MD RX Refill Request [id number] 06/25/2014 06/25/2014 Prakash Reid MD RX Refill Request [id number] 06/25/2014 06/25/2014 Prakash Reid MD RX Refill Request [id number] 06/25/2014 06/25/2014 Prakash Reid MD RX Refill Request [id number] 06/25/2014 06/25/2014 Prakash Reid MD RX Refill Request [id number] 06/25/2014 06/25/2014 Prakash Reid MD RX Refill Request [id number] 06/25/2014 06/25/2014 Prakash Reid MD RX Refill Request [id number] 06/25/2014 06/25/2014 Prakash Reid MD RX Refill Request [id number] 06/25/2014 06/25/2014 Prakash Reid MD RX Refill Request [id number] 06/25/2014 06/25/2014 Prakash Reid MD RX Refill Request [id number] 06/25/2014 06/25/2014 Prakash Reid MD RX Refill Request [id number] 06/25/2014 06/25/2014 Prakash Reid MD RX Refill Request [id number] 06/25/2014 06/25/2014 Prakash Reid MD RX Fax Failure [id number]-3u18-650n-q459-sg91vg414ja3 07/03/2014 07/03/2014 Prakash Reid MD RX Fax Failure [id number]-2s3t-9064-hxc8-35zrzt00d940 07/03/2014 07/03/2014 Prakash Reid MD RX Fax Failure p5904g3t-7027-1v94-d10p-8o7w8p1ndy89 07/03/2014 07/03/2014 Prakash Reid MD RX Fax Failure 2x051t91-p79b-7498-931h-z7yo54u4wo7w 07/03/2014 07/03/2014 Prakash Reid MD RX Fax Failure 97e310qn-3j9g-2iy1-seg0-ag5clyid019r 07/03/2014 07/03/2014 Prakash Reid MD RX Fax Failure s32izt91-qrr5-4654-4942-0535gy5p2e0c 07/03/2014 07/03/2014 Prakash Reid MD RX Fax Failure g3751610-m6h2-469d-k947-9k0t70ni9rb9 07/03/2014 07/03/2014 Prakash Reid MD RX Fax Failure 698aqt31-s120-25f4-mb7x-0g6r0m6h2153 07/03/2014 07/03/2014 Prakash Reid MD RX Fax Failure 22772a10-69lr-6150-1048-447qlcs8r42r 07/03/2014 07/03/2014 Prakash Reid MD RX Fax Failure 8z025k57-9166-764s-4a51-31390f4072gj 07/03/2014 07/03/2014 Prakash Reid MD RX Fax Failure r95qfvl6-iywr-446m-4871-m04b019265y3 07/03/2014 07/03/2014 Prakash Reid MD RX Fax Failure 1997xok7-w866-1413-0781-6jia3s59uf1s 07/03/2014 07/03/2014 Prakash Reid MD RX Fax Failure 6x80w18e-8pag-1m86-05xc-3jl76a2n96au 07/03/2014 07/03/2014 Prakash Reid MD RX Fax Failure e6084le2-6ra7-842m-18xf-79x0wzi55hu9 07/03/2014 07/03/2014 Prakash Reid MD RX Fax Failure 6d6203g4-qt97-4fv1-50q9-v73qz8086w46 07/03/2014 07/03/2014 Prakash Reid MD RX Fax Failure 83g5u1gq-8uu5-5242-mllt-06i3iq5a5c48 07/03/2014 07/03/2014 Prakash Reid MD RX Fax Failure 203rookw-fen6-6002-8cff-6dropsl2b806 07/03/2014 07/03/2014 Prakash Reid MD RX Fax Failure 9hb8777j-9969-8dp2-7242-2poepj2wc1pr 07/03/2014 07/03/2014 Prakash Reid MD RX Fax Failure 8d3r1651-20r3-266u-707p-[id number] 07/03/2014 07/03/2014 Prakash Reid MD RX Fax Failure 25n80i43-c1qw-2as4-81e9-6s82gmcbo597 07/03/2014 07/03/2014 Prakash Reid MD RX Fax Failure 0atr4hia-2597-0lyp-i73v-l55w46sx17pl 07/03/2014 07/03/2014 Prakash Reid MD RX Fax Failure 7t741576-7w15-547u-4wz1-b3c3978x6499 07/03/2014 07/03/2014 Prakash Reid MD RX Fax Failure d250s80l-4u52-0uo7-bem1-k2zahe5yq1ii 07/03/2014 07/03/2014 Prakash Reid MD RX Fax Failure 8r3o32n7-j995-41p7-4399-8auofv81234s 07/03/2014 07/03/2014 Prakash Reid MD RX Fax Failure 1vh1c83f-696a-4r48-gdw5-d52c56l90845 07/03/2014 07/03/2014 Prakash Reid MD RX Fax Failure gj62nby7-047j-5rv4-bpdc-6w46v09gj9c3 07/03/2014 07/03/2014 Prakash Reid MD RX Fax Failure 032xc1g3-19dh-58fh-550v-74xo8n263361 07/03/2014 07/03/2014 Prakash Reid MD RX Fax Failure livpdi2w-0448-3hp5-g109-b55t03ta2730 07/03/2014 07/03/2014 Prakash Reid MD RX Fax Failure 01i0558r-vi0w-5802-3z7f-37a1ra4h5v03 07/03/2014 07/03/2014 Prakash Reid MD RX Fax Failure 9eff8g79-2232-57v7-c9r5-a7m2581zg4il 07/03/2014 07/03/2014 Prakash Reid MD RX Fax Failure 4516d080-1z8c-3843-mp7u-2k97tkn4tq5s 07/03/2014 07/03/2014 Prakash Reid MD RX Fax Failure m05tm5j8-hg24-3o55-71wo-4740z68672io 07/03/2014 07/03/2014 Prakash Reid MD RX Fax Failure 06tq53d8-ccvj-36xk-k5h3-5e777539d7s4 07/03/2014 07/03/2014 Prakash Reid MD RX Fax Failure 00yn2326-3r3l-99pv-d901-7k685l929td0 07/03/2014 07/03/2014 Prakash Reid MD RX Fax Failure v0ap413a-scl0-7380-876x-36w726802s15 07/03/2014 07/03/2014 Prakash Reid MD RX Fax Failure 161e9d09-pg79-6207-l1hi-5sea956r91f0 07/03/2014 07/03/2014 Prakash Reid MD RX Fax Failure r8i3h3tw-q6q1-52tf-u3xn-3a135z76091u 07/03/2014 07/03/2014 Prakash Reid MD RX Fax Failure 8277i50r-6xb7-59s5-279a-6urawc0fy064 07/03/2014 07/03/2014 Prakash Reid MD Triplicate-- Hydrocodone 11/2 y95j8bzz-5370-0962-3tr3-05l23z6bk81r 08/07/2014 08/07/2014 Prakash Reid MD Triplicate-- Hydrocodone 11/2 r72h10yx-ok07-9296-z0fq-86jw7j479834 08/07/2014 08/07/2014 Prakash Reid MD Triplicate-- Hydrocodone 11/2 p9q3m5w2-7n34-9l1n-7184-0y028r25j886 08/07/2014 08/07/2014 Prakash Reid MD Triplicate-- Hydrocodone 11/2 1111327v-7v16-6cuy-esf4-0c598o3gc7e5 08/07/2014 08/07/2014 Prakash Reid MD Triplicate-- Hydrocodone 11/2 e8ur6a0g-3t8h-49va-0208-r8a8p7m99d6n 08/07/2014 08/07/2014 Prakash Reid MD Triplicate-- Hydrocodone 11/2 5j34q052-4xw5-77bs-4403-s178637w8pr4 08/07/2014 08/07/2014 Prakash Reid MD Triplicate-- Hydrocodone 11/2 5jd560xw-x926-2l00-7571-vd86my534ee3 08/07/2014 08/07/2014 Prakash Reid MD Triplicate-- Hydrocodone 11/2 n5u10q1b-ds1i-448g-g002-ot7w91q12nbm 08/07/2014 08/07/2014 Prakash Reid MD Triplicate-- Hydrocodone 11/2 5tzh4v77-09x7-081o-g8dk-l7di4si90cnq 08/07/2014 08/07/2014 Prakash Reid MD Triplicate-- Hydrocodone 11/2 [id number]-4qwp-3752-0a7x-6f9j60d33atq 08/07/2014 08/07/2014 Prakash Reid MD Triplicate-- Hydrocodone 11/2 z3741xoy-6389-578w-05r5-2z35m3w3831j 08/07/2014 08/07/2014 Prakash Reid MD Triplicate-- Hydrocodone 11/2 5271go76-g747-231v-27c7-67041o2d4y54 08/07/2014 08/07/2014 Prakash Reid MD Triplicate-- Hydrocodone 11/2 89686xaa-34v0-4e7g-13d0-4n23a48sf67d 08/07/2014 08/07/2014 Prakash Reid MD Triplicate-- Hydrocodone 11/2 u52p442j-5v85-86j5-eg95-9h08761s5109 08/07/2014 08/07/2014 Prakash Reid MD Triplicate-- Hydrocodone 11/2 9s84214h-1806-6ue7-76r0-f88j2dy37851 08/07/2014 08/07/2014 Prakash Reid MD Triplicate-- Hydrocodone 11/2 x81iy660-6x4m-7486-d1i0-xk5838j6169e 08/07/2014 08/07/2014 Prakash Reid MD Triplicate-- Hydrocodone 11/2 288e25ax-w905-68c6-gfvl-b38111284qd0 08/07/2014 08/07/2014 Prakash Reid MD Triplicate-- Hydrocodone 11/2 lw58fwzl-99pl-5qqq-604e-5341j64x4x2j 08/07/2014 08/07/2014 Prakash Reid MD Triplicate-- Hydrocodone 11/2 844b465f-i2h2-9q23-6645-w68d1700wd03 08/07/2014 08/07/2014 Prakash Reid MD Triplicate-- Hydrocodone 11/2 wu5z0i9t-8jq2-1fy4-t8gt-14o8992e9721 08/07/2014 08/07/2014 Prakash Reid MD Triplicate-- Hydrocodone 11/2 24zg4b2v-823w-5s45-ar91-vlvy068ao7o1 08/07/2014 08/07/2014 Prakash Reid MD Triplicate-- Hydrocodone 11/2 61n375d1-689d-18i1-4m9t-246911l528t1 08/07/2014 08/07/2014 Prakash Reid MD Triplicate-- Hydrocodone 11/2 bvup4o2b-fcf1-282t-55ol-89w76a5s9511 08/07/2014 08/07/2014 Prakash Reid MD Triplicate-- Hydrocodone 11/2 7t9a3x18-p216-3l42-7681-6xeg7qi7x3c1 08/07/2014 08/07/2014 Prakash Reid MD Triplicate-- Hydrocodone 11/2 p0xccw4w-f3zs-9m35-n8n9-s6c07l77n171 08/07/2014 08/07/2014 Prakash Reid MD Triplicate-- Hydrocodone 11/2 6106w2d7-0g41-7f9b-7la1-23k5guf10p82 08/07/2014 08/07/2014 Prakash Reid MD Triplicate-- Hydrocodone 11/2 z8y41zp7-n049-5444-lt75-333g1q378clt 08/07/2014 08/07/2014 Prakash Reid MD Triplicate-- Hydrocodone 11/2 ucj659qk-9e25-556h-8jll-z0ev233vj807 08/07/2014 08/07/2014 Prakash Reid MD Triplicate-- Hydrocodone 11/2 kv16z2oh-1844-9t74-vph4-bh4rg462g6ab 08/07/2014 08/07/2014 Prakash Reid MD Triplicate-- Hydrocodone 11/2 762c3580-2345-39dj-z74g-1p46te209lq4 08/07/2014 08/07/2014 Prakash Reid MD Triplicate-- Hydrocodone 11/2 70w6iw5z-9637-982z-53f5-842o9sq3c980 08/07/2014 08/07/2014 Prakash Reid MD Triplicate-- Hydrocodone 11/2 984tcf43-0wr2-35e0-1nwy-4z249r991588 08/07/2014 08/07/2014 Prakash Reid MD Triplicate-- Hydrocodone 11/2 o23024r1-w2q2-6pp9-kcye-8x08cpm0rm51 08/07/2014 08/07/2014 Prakash Reid MD Triplicate-- Hydrocodone 11/2 2zhw02lx-8691-55je-9n93-6rc1x4q9jf58 08/07/2014 08/07/2014 Prakash Reid MD Triplicate-- Hydrocodone 11/2 [id number]-0gx1-gg91d730588q 08/07/2014 08/07/2014 Prakash Reid MD Triplicate-- Hydrocodone 08/11 6g22r9m7-qk6y-09r6-21c2-93i2c74s165b 08/07/2014 08/07/2014 Prakash Reid MD RX Failure ul92v820-27v1-81y8-l767-a5ec7147527x 08/13/2014 08/13/2014 Prakash Reid MD RX Failure fi59m1a9-k20a-0738-3l5m-82c2p0ua925s 08/13/2014 08/13/2014 Prakash Reid MD RX Failure 5l6335q1-5eq6-13y7-9tk9-53a7k79fhu12 08/13/2014 08/13/2014 Prakash Reid MD RX Failure 9639l732-f3b8-70zc-6c59-91s855358zw1 08/13/2014 08/13/2014 Prakash Reid MD RX Failure yi11ova8-vw51-6loz-6496-6x16jow0585m 08/13/2014 08/13/2014 Prakash Reid MD RX Failure by22u10l-y583-4109-7919-nnt7604v3r72 08/13/2014 08/13/2014 Prakash Reid MD RX Failure 878xbmq5-1jcg-0hiu-76t3-l25324fr3w81 08/13/2014 08/13/2014 Prakash Reid MD RX Failure 722bpf85-08i5-29t2-t493-8l751b5k74po 08/13/2014 08/13/2014 Prakash Reid MD RX Failure aoo71gd2-1e00-7x2m-5104-q3oe9om74uv1 08/13/2014 08/13/2014 Prakash Reid MD RX Failure w0879fwp-ewk5-1n5g-gx42-03on97z7sv4h 08/13/2014 08/13/2014 Prakash Reid MD RX Failure 875sv76r-098w-667g-8oh9-36mib0054x21 08/13/2014 08/13/2014 Prakash Reid MD RX Failure 6o017787-25u4-7415-94cf-cvvtx8wh2u0r 08/13/2014 08/13/2014 Prakash Reid MD RX Failure pz278p0x-433k-2335-p169-4o31640avu1y 08/13/2014 08/13/2014 Prakash Reid MD RX Failure 4z5d2krv-3321-0r06-gb39-214ip9f27y75 08/13/2014 08/13/2014 Prakash Reid MD RX Failure 16q21e51-xz43-2138-7n63-1e52q27u4610 08/13/2014 08/13/2014 Prakash Reid MD RX Failure 22dr73ty-qn09-3u32-y197-f910qrd46s2v 08/13/2014 08/13/2014 Prakash Reid MD RX Failure 9u1441w8-w49h-5400-445n-4301974cl0o3 08/13/2014 08/13/2014 Prakash Reid MD RX Failure 7r59iq5t-68m2-57y4-nn94-y14092m6p4xw 08/13/2014 08/13/2014 Prakash Reid MD RX Failure 596869m8-3qe6-895k-8u29-56vw4urn4w8n 08/13/2014 08/13/2014 Prakash Reid MD RX Failure 0o4l6490-rpa9-3m34-h1z5-a75331r476n8 08/13/2014 08/13/2014 Prakash Reid MD RX Failure 629741hy-291u-78mw-3156-29770929e722 08/13/2014 08/13/2014 Prakash Reid MD RX Failure 8788qz28-pg3r-350t-052m-4e6z2c147326 08/13/2014 08/13/2014 Prakash Reid MD RX Failure 89e00h07-3407-313j-a738-744h047vlqs5 08/13/2014 08/13/2014 Prakash Reid MD RX Failure 8972m462-21lk-5n44-8tz2-9n30d1i78120 08/13/2014 08/13/2014 Prakash Reid MD RX Failure 40ajx6hv-5g63-5d8z-hh22-98k36k4htsqg 08/13/2014 08/13/2014 Prakash Reid MD RX Failure 53639h1o-5v67-0584-079e-75345n74g3o2 08/13/2014 08/13/2014 Prakash Reid MD RX Failure 983614d1-7wr6-6ax5-p8r2-1g3373fh2q85 08/13/2014 08/13/2014 Prakash Reid MD RX Failure 703s0484-8713-750s-x4h9-h6751pr6m66u 08/13/2014 08/13/2014 Prakash Reid MD RX Failure 706sn4og-n2l9-99b7-89g0-3z098222gf46 08/13/2014 08/13/2014 Prakash Reid MD RX Failure 6i991f6y-q733-0o4j-n229-5ph34844p91p 08/13/2014 08/13/2014 Prakash Reid MD RX Failure d1g358oq-35x5-0dq3-24c5-m91269jpb13a 08/13/2014 08/13/2014 Prakash Reid MD RX Failure 0549700u-5li9-2864-k03i-1i008315wh49 08/13/2014 08/13/2014 Prakash Reid MD RX Failure wh792545-y32u-3573-1w3d-290632288997 08/13/2014 08/13/2014 Prakash Reid MD RX Failure 98deioh5-496g-1759-l150-55q68v40mti2 08/13/2014 08/13/2014 Prakash Reid MD RX Failure 26be7m21-q8xz-764o-159o-4l2938964v41 08/13/2014 08/13/2014 Prakash Reid MD RX Failure t6178535-3807-67e6-s5f8-1s543040z324 08/13/2014 08/13/2014 Prakash Reid MD refill [place] 09/10 r3ov72p6-6907-5p48-w440-618mq91wxcbk 09/09/2014 09/09/2014 Prakash Reid MD refill [place] 09/10 s0q043wd-62mo-2nzo-h50z-5i39n0m2g489 09/09/2014 09/09/2014 Prakash Reid MD refill norme 09/10 9a9qw8j9-mb42-22m3-vjct-g0301546xi39 09/09/2014 09/09/2014 Prakash Reid MD refill norme 09/10 21k198vj-0c11-2797-n3e7-39l2s8484we5 09/09/2014 09/09/2014 Prakash Reid MD refill norme 09/10 7nqz98fs-0784-9109-p96c-n0tj5s13w812 09/09/2014 09/09/2014 Prakash Reid MD refill norme 09/10 5i525f10-628m-4175-0474-37j00p16q901 09/09/2014 09/09/2014 Prakash Reid MD refill norme 09/10 md159353-0154-957l-a286-705dx9n1t3f6 09/09/2014 09/09/2014 Prakash Reid MD refill [place] 09/10 r111tsgh-06k4-574s-umwu-ijl8sw899260 09/09/2014 09/09/2014 Prakash Reid MD refill [place] 09/10 cuo29oj0-5r7j-6fk1-638w-494887ex2ocs 09/09/2014 09/09/2014 Prakash Reid MD refill [place] 09/10 7350798v-i451-62vq-r435-h3y1a44p1wh8 09/09/2014 09/09/2014 Prakash Reid MD refill [place] 09/10 40u1lj3m-0l4e-99z0-1045-dizg4a75m2uc 09/09/2014 09/09/2014 Prakash Reid MD refill [place] 09/10 o41oq781-64o3-9313-uk3d-076292w18z36 09/09/2014 09/09/2014 Prakash Reid MD refill [place] 09/10 g652n99j-ni7z-59fs-l02g-v18jt32a6671 09/09/2014 09/09/2014 Prakash Reid MD refill [place] 09/10 z5368k85-18o6-533u-jb88-n432nke2sg6s 09/09/2014 09/09/2014 Prakash Reid MD refill [place] 09/10 1so38w0m-mg51-392o-a67y-7fwe91w67265 09/09/2014 09/09/2014 Prakash Reid MD refill [place] 09/10 d1935312-qd3o-3gk6-u6d4-b987y8n9dto7 09/09/2014 09/09/2014 Prakash Reid MD refill norme 09/10 g0j44t75-9th5-3535-ef00-2339t436eau4 09/09/2014 09/09/2014 Prakash Reid MD refill norme 09/10 2472f5y1-2561-4nlf-0pd3-6xc5qib77iz9 09/09/2014 09/09/2014 Prakash Reid MD refill norme 09/10 8s1191y3-795o-21w4-6z7t-1w52850o0gto 09/09/2014 09/09/2014 Prakash Reid MD refill norme 09/10 42r7mzv2-687y-4l99-7vkd-36a73f1te779 09/09/2014 09/09/2014 Prakash Reid MD refill norme 09/10 3c60765g-2x78-3419-yeul-ya9816f85051 09/09/2014 09/09/2014 Prakash Reid MD refill norme 09/10 k438zf09-qq85-56gi-5014-85h89641m549 09/09/2014 09/09/2014 Prakash Reid MD refill norme 09/10 485108ru-5997-07f2-h02d-956606h05511 09/09/2014 09/09/2014 Prakash Reid MD refill norme 09/10 zb331ft0-5239-8v59-bqlz-0f655f61jf1u 09/09/2014 09/09/2014 Prakash Reid MD refill norme 09/10 0575afy6-2082-3989-z86i-3f127682ge1m 09/09/2014 09/09/2014 Prakash Reid MD refill norm[place] 09/10 4o83w2e6-p451-4090-i00t-y7h42316f65h 09/09/2014 09/09/2014 Prakash Reid MD refill [place] 09/10 64j321q1-30c3-2g74-8y53-91t08w765308 09/09/2014 09/09/2014 Prakash Reid MD refill [place] 09/10 2628y4vm-977y-4yj2-56vg-6zyoi61v13uv 09/09/2014 09/09/2014 Prakash Reid MD refill [place] 09/10 8d0t43iz-m0tu-26s6-colu-306p1792f29x 09/09/2014 09/09/2014 Prakash Reid MD refill [place] 09/10 3v28l113-8838-572u-c5j0-o7a6926m1i9h 09/09/2014 09/09/2014 Prakash Reid MD refill [place] 09/10 d60k691h-8753-3e95-2mit-08fo735954v7 09/09/2014 09/09/2014 Prakash Reid MD refill [place] 09/10 bkxp0sel-95w7-1616-n2t4-x3208v2zb26a 09/09/2014 09/09/2014 Prakash Reid MD refill [place] 09/10 5m6fq652-2f93-055z-4b97-s9p7mbg81481 09/09/2014 09/09/2014 Prakash Reid MD refill [place] 09/10 p19o9897-kpo5-3e4q-e6e4-8501nz052275 09/09/2014 09/09/2014 Prakash Reid MD [facility]-- Hydrocodone sr8s9zi4-222c-3305-4ctw-35009fst2c80 10/11/2014 10/11/2014 Prakash Reid MD Tri[facility]-- Hydrocodone 2a59s34a-00ok-8m5u-3544-8c18791elib9 10/11/2014 10/11/2014 Prakash Reid MD Tri[facility]-- Hydrocodone 9652jwwl-954h-214e-aff7-or1f7g02dtmd 10/11/2014 10/11/2014 Prakash Reid MD Tri[facility]-- Hydrocodone 8n056280-9e8w-1n02-g1w9-7y204c1xi88y 10/11/2014 10/11/2014 Prakash Reid MD Triplicate-- Hydrocodone 77p06k70-h63q-91dy-y43y-642n713nf5xh 10/11/2014 10/11/2014 Prakash Reid MD Triplicate-- Hydrocodone 73u977ex-bun5-5d6l-7t1a-3o3zr28916x7 10/11/2014 10/11/2014 Prakash Reid MD Triplicate-- Hydrocodone 69g1923r-lvwg-00a6-9082-6s312282c045 10/11/2014 10/11/2014 Prakash Reid MD Triplicate-- Hydrocodone 697sv774-tu8t-9g70-6y63-3trt7s6tx24g 10/11/2014 10/11/2014 Prakash Reid MD Triplicate-- Hydrocodone 1kx85es4-7y09-7dvp-1xz8-l6xy19xv66a4 10/11/2014 10/11/2014 Prakash Reid MD Triplicate-- Hydrocodone 8j917682-x242-1t11-a562-6860591q615z 10/11/2014 10/11/2014 Prakash Reid MD Triplicate-- Hydrocodone 7uc154r7-m410-5756-yf79-88on10p08d76 10/11/2014 10/11/2014 Prkaash Reid MD Triplicate-- Hydrocodone n8a7q744-8e8y-5l02-4xwd-32z4n8314w00 10/11/2014 10/11/2014 Prakash Reid MD Triplicate-- Hydrocodone yit524fb-q253-2hlh-5h44-t822vd1li5v9 10/11/2014 10/11/2014 Prakash Reid MD Triplicate-- Hydrocodone 28x85g73-gm98-7b6h-h17t-90954219010s 10/11/2014 10/11/2014 Prakash Reid MD Triplicate-- Hydrocodone 9r449521-1875-7sa7-efai-ym69ks5892qo 10/11/2014 10/11/2014 Prakash Reid MD Triplicate-- Hydrocodone 7qz73gw9-yfch-0391-a15f-75u28pome11b 10/11/2014 10/11/2014 Prakash Reid MD Triplicate-- Hydrocodone 9wtp69g8-s95x-9fdu-k3b2-703g61x12k30 10/11/2014 10/11/2014 Prakash Reid MD Triplicate-- Hydrocodone 1729xdf2-5ksl-1010-1954-2748364s1110 10/11/2014 10/11/2014 Prakash Reid MD Triplicate-- Hydrocodone 3l58sh6b-08b1-2120-qak2-pw3045nvnfe0 10/11/2014 10/11/2014 Prakash Reid MD Triplicate-- Hydrocodone b3682m8x-7703-86z3-90hv-evi517v3jl72 10/11/2014 10/11/2014 Prakash Reid MD Triplicate-- Hydrocodone 96yy1n8u-49im-216u-j0rv-3dhv31du3pu7 10/11/2014 10/11/2014 Prakash Reid MD Triplicate-- Hydrocodone u16978uu-4d16-3fz7-0a7h-u98eqr50s7e8 10/11/2014 10/11/2014 Prakash Reid MD Triplicate-- Hydrocodone f09674tk-0g21-55r3-7935-6y11qt8s9933 10/11/2014 10/11/2014 Prakash Reid MD Triplicate-- Hydrocodone x1l06n8p-3zv2-7n10-980j-7390a39aol54 10/11/2014 10/11/2014 Prakash Reid MD Triplicate-- Hydrocodone 20j87143-v29i-61yj-h345-159y5c892967 10/11/2014 10/11/2014 Prakash Reid MD Triplicate-- Hydrocodone 89h01kc6-5j20-2u92-svz6-nzq0t8fx2pgt 10/11/2014 10/11/2014 Prakash Reid MD Triplicate-- Hydrocodone c1q17lnj-5v36-1653-335t-5025ye4418rx 10/11/2014 10/11/2014 Prakash Reid MD Tri[facility]-- Hydrocodone 09665rn7-3cx2-0620-5t60-boh5cyi631r1 10/11/2014 10/11/2014 Prakash Reid MD Triplicate-- Hydrocodone r616w38f-1862-79r5-412b-38jl5p2ih937 10/11/2014 10/11/2014 Prakash Reid MD Triplicate-- Hydrocodone z173751p-9m38-8593-7d00-5bxp6i3826ht 10/11/2014 10/11/2014 Prakash Reid MD Triplicate-- Hydrocodone 84kmqq71-1166-52gu-363j-nq76i756e1c9 10/11/2014 10/11/2014 Prakash Reid MD Triplicate-- Hydrocodone 96v69r76-g247-4c8i-732e-515k8k3t054g 10/11/2014 10/11/2014 Prakash Reid MD Tri[facility]-- Hydrocodone 20377qe8-2m72-62j8-2767-s38dx4at0w61 10/11/2014 10/11/2014 Prakash Reid MD RX 56d07o93-s4w1-716t-z4n3-870g0706565r 11/14/2014 11/14/2014 Prakash Reid MD RX 7v36338r-x12o-2w52-36f7-160533mqdg48 11/14/2014 11/14/2014 Prakash Reid MD RX 9n7hsn27-j017-8s7j-l33h-2b942k565eni 11/14/2014 11/14/2014 Prakash Reid MD RX g7y97804-sx92-47az-50gu-so7ue1205y1f 11/14/2014 11/14/2014 Prakash Reid MD RX 9i112g40-3242-0198-87kf-9mh03yc5bwv0 11/14/2014 11/14/2014 Prakash Reid MD RX 3h2cv376-nitb-1kaj-fw9z-v5vosr6y52z3 11/14/2014 11/14/2014 Prakash Reid MD RX tr4i6p9a-m7d3-6c27-14w7-th240327t9x2 11/14/2014 11/14/2014 Prakash Reid MD RX tz86j019-2757-6971-k6ac-b0m5804ngj66 11/14/2014 11/14/2014 Prakash Reid MD RX 77of6d94-v658-67l4-v0j0-v1qp2hu07ro3 11/14/2014 11/14/2014 Prakash Reid MD RX 097rx08u-9400-4ex0-b57w-x0204802q828 11/14/2014 11/14/2014 Prakash Reid MD RX 3h0o0y25-8n37-583y-0y26-o07a6932395r 11/14/2014 11/14/2014 Prakash Reid MD RX dt90g914-0n29-5e06-w49z-901107u6k4ud 11/14/2014 11/14/2014 Prakash Reid MD RX 512n9o38-uq72-4eby-09q2-570115o258v9 11/14/2014 11/14/2014 Prakash Reid MD RX 14662s2d-m238-90e3-z21d-2hb2kf50b8z9 11/14/2014 11/14/2014 Prakash Reid MD RX 689k94r1-n11x-337d-w30d-ei0r3488f13b 11/14/2014 11/14/2014 Prakash Reid MD RX 6iv9kd52-4wa5-30vo-1w61-13278672s27q 11/14/2014 11/14/2014 Prakash Reid MD RX 84781uuf-5b31-65b5-2t0j-897b246e39m1 11/14/2014 11/14/2014 Prakash Reid MD RX 53l84m0k-oc97-1532-2452-z84qq260c7w6 11/14/2014 11/14/2014 Prakash Reid MD RX 68129g83-757q-3t0g-a6kq-ux13288wql80 11/14/2014 11/14/2014 Prakash Reid MD RX we713946-m41s-01dc-e05s-v6m14r185386 11/14/2014 11/14/2014 Prakash Reid MD RX v1ac994h-ly1f-8859-to93-hg1m883xc3s7 11/14/2014 11/14/2014 Prakash Reid MD RX m1l367a4-76jo-676g-tz9v-pxb31841v9ra 11/14/2014 11/14/2014 Prakash Reid MD RX 840203e2-363o-1aj9-7j6a-nj95y9oj407v 11/14/2014 11/14/2014 Prakash Reid MD RX xm92z498-in21-5t94-x1j9-66d2ox61z43c 11/14/2014 11/14/2014 Prakash Reid MD RX o61r87s1-k715-2400-079y-1py04t119ym9 11/14/2014 11/14/2014 Prakash Reid MD RX m97av469-7v78-83c9-p607-d58720b96jvk 11/14/2014 11/14/2014 Prakash Reid MD RX a640l2k0-3ns2-7730-f2y1-0m537f564zw7 11/14/2014 11/14/2014 Prakash Reid MD RX 0x512ps5-paf6-511u-839r-9281178j6487 11/14/2014 11/14/2014 Prakash Reid MD RX 0854e68w-00o5-7z73-y97s-53qu57d9r2i1 11/14/2014 11/14/2014 Prakash Reid MD RX 461ch299-u741-1d43-8440-yx17ny65433e 11/14/2014 11/14/2014 Prakash Reid MD RX p44j3o19-63r1-3d01-9ki6-q4jild2nmwoy 11/14/2014 11/14/2014 Prakash Reid MD RX 87au0ebb-32s8-5c89-sh53-129y0504cbth 11/14/2014 11/14/2014 Prakash Reid MD Unknown [id number]-4k83-0nu3-8y52-8utrx6b643m1 11/18/2014 11/18/2014 Prakash Reid MD Unknown [id number]-wis0s1d48n5t 11/18/2014 11/18/2014 Prakash Reid MD Unknown [id number] 11/18/2014 11/18/2014 Prakash Reid MD Unknown [id number] 11/18/2014 11/18/2014 Prakash Reid MD Unknown [id number]-gbd1-0y88x437337o 11/18/2014 11/18/2014 Prakash Reid MD Unknown [id number] 11/18/2014 11/18/2014 Prakash Reid MD Unknown [id number] 11/18/2014 11/18/2014 Prakash Reid MD Unknown [id number] 11/18/2014 11/18/2014 Prakash Reid MD Unknown [id number] 11/18/2014 11/18/2014 Prakash Reid MD Unknown [id number]-pw82k980n57y 11/18/2014 11/18/2014 Prakash Reid MD Unknown [id number] 11/18/2014 11/18/2014 Prakash Reid MD Unknown [id number] 11/18/2014 11/18/2014 Prakash eRid MD Unknown [id number] 11/18/2014 11/18/2014 Prakash Reid MD Unknown [id number]-d293-02y1cev6lo82 11/18/2014 11/18/2014 Prakash Reid MD Unknown [id number] 11/18/2014 11/18/2014 Prakash Reid MD Unknown [id number] 11/18/2014 11/18/2014 Prakash Reid MD Unknown [id number]-m6y98j427jdo 11/18/2014 11/18/2014 Prakash Reid MD Unknown [id number] 11/18/2014 11/18/2014 Prakash Reid MD Unknown [id number] 11/18/2014 11/18/2014 Prakash Reid MD Unknown [id number] 11/18/2014 11/18/2014 Prakash Reid MD Unknown [id number] 11/18/2014 11/18/2014 Prakash Reid MD Unknown [id number] 11/18/2014 11/18/2014 Prakash Reid MD Unknown [id number] 11/18/2014 11/18/2014 Prakash Reid MD Unknown [id number] 11/18/2014 11/18/2014 Prakash Reid MD Unknown [id number] 11/18/2014 11/18/2014 Prakash Reid MD Unknown [id number] 11/18/2014 11/18/2014 Prakash Reid MD Unknown [id number] 11/18/2014 11/18/2014 Prakash Reid MD Unknown [id number] 11/18/2014 11/18/2014 Prakash Reid MD Unknown [id number] 11/18/2014 11/18/2014 Prakash Reid MD Unknown [id number] 11/18/2014 11/18/2014 Prakash Reid MD Unknown [id number] 11/18/2014 11/18/2014 Prakash Reid MD Unknown [id number] 11/18/2014 11/18/2014 Prakash Reid MD MRI Bi-hands [id number]-i1y4jsqv3726 12/05/2014 12/05/2014 Prakash Reid MD DEXA [id number] 12/05/2014 12/05/2014 Prakash Reid MD MRI Bi-hands [id number]-[id number] 12/05/2014 12/05/2014 Prakash Reid MD DEXA [id number] 12/05/2014 12/05/2014 Prakash Reid MD MRI Bi-hands [id number]-45ch-v3gp3d9ro14f 12/05/2014 12/05/2014 Prakash Reid MD DEXA [id number] 12/05/2014 12/05/2014 Prakash Reid MD MRI Bi-hands [id number] 12/05/2014 12/05/2014 Prakash Reid MD DEXA [id number] 12/05/2014 12/05/2014 Prakash Reid MD MRI Bi-hands [id number]-s14b-[id number] 12/05/2014 12/05/2014 Prakash Reid MD DEXA [id number] 12/05/2014 12/05/2014 Prakash Reid MD DEXA [id number] 12/05/2014 12/05/2014 Prakash Reid MD MRI Bi-hands [id number] 12/05/2014 12/05/2014 Prakash Reid MD DEXA [id number] 12/05/2014 12/05/2014 Prakash Reid MD MRI Bi-hands [id number] 12/05/2014 12/05/2014 Prakash Reid MD DEXA [id number] 12/05/2014 12/05/2014 Prakash Reid MD MRI Bi-hands [id number] 12/05/2014 12/05/2014 Prakash Reid MD DEXA [id number] 12/05/2014 12/05/2014 Prakash Reid MD MRI Bi-hands [id number] 12/05/2014 12/05/2014 Prakash Reid MD DEXA [id number] 12/05/2014 12/05/2014 Prakash Reid MD MRI Bi-hands [id number] 12/05/2014 12/05/2014 Prakash Reid MD DEXA [id number] 12/05/2014 12/05/2014 Prakash Reid MD MRI Bi-hands [id number] 12/05/2014 12/05/2014 Prakash Reid MD DEXA [id number] 12/05/2014 12/05/2014 Prakash Reid MD MRI Bi-hands [id number] 12/05/2014 12/05/2014 Prakash Reid MD DEXA [id number] 12/05/2014 12/05/2014 Prakash Reid MD MRI Bi-hands [id number] 12/05/2014 12/05/2014 Prakash Reid MD DEXA [id number] 12/05/2014 12/05/2014 Prakash Reid MD MRI Bi-hands [id number] 12/05/2014 12/05/2014 Prakash Reid MD DEXA [id number] 12/05/2014 12/05/2014 Prakash Reid MD MRI Bi-hands [id number] 12/05/2014 12/05/2014 Prakash Reid MD DEXA [id number] 12/05/2014 12/05/2014 Prakash Reid MD MRI Bi-hands [id number] 12/05/2014 12/05/2014 Prakash Reid MD DEXA [id number] 12/05/2014 12/05/2014 Prakash Reid MD MRI Bi-hands [id number] 12/05/2014 12/05/2014 Prakash Reid MD DEXA [id number] 12/05/2014 12/05/2014 Prakash Reid MD MRI Bi-hands [id number] 12/05/2014 12/05/2014 Prakash Reid MD DEXA [id number] 12/05/2014 12/05/2014 Prakash Reid MD MRI Bi-hands [id number] 12/05/2014 12/05/2014 Prakash Reid MD DEXA [id number] 12/05/2014 12/05/2014 Prakash Reid MD MRI Bi-hands [id number] 12/05/2014 12/05/2014 Prakash Reid MD DEXA [id number] 12/05/2014 12/05/2014 Prakash Reid MD MRI Bi-hands [id number] 12/05/2014 12/05/2014 Prakash Reid MD DEXA [id number] 12/05/2014 12/05/2014 Prakash Reid MD MRI Bi-hands [id number] 12/05/2014 12/05/2014 Prakash Reid MD DEXA [id number] 12/05/2014 12/05/2014 Prakash Reid MD MRI Bi-hands [id number] 12/05/2014 12/05/2014 Prakash Reid MD DEXA [id number] 12/05/2014 12/05/2014 Prakash Reid MD MRI Bi-hands [id number] 12/05/2014 12/05/2014 Prakash Reid MD DEXA [id number] 12/05/2014 12/05/2014 Prakash Reid MD MRI Bi-hands [id number] 12/05/2014 12/05/2014 Prakash Reid MD DEXA [id number] 12/05/2014 12/05/2014 Prakash Reid MD MRI Bi-hands [id number] 12/05/2014 12/05/2014 Prakash Reid MD DEXA [id number] 12/05/2014 12/05/2014 Prakash Reid MD MRI Bi-hands [id number] 12/05/2014 12/05/2014 Prakash Reid MD DEXA [id number] 12/05/2014 12/05/2014 Prakash Reid MD MRI Bi-hands [id number] 12/05/2014 12/05/2014 Prakash Reid MD DEXA [id number] 12/05/2014 12/05/2014 Prakash Reid MD MRI Bi-hands [id number] 12/05/2014 12/05/2014 Prakash Reid MD DEXA [id number] 12/05/2014 12/05/2014 Prakash Reid MD MRI Bi-hands [id number] 12/05/2014 12/05/2014 Prakash Reid MD DEXA [id number] 12/05/2014 12/05/2014 Prakash Reid MD MRI Bi-hands [id number] 12/05/2014 12/05/2014 Prakash Reid MD DEXA [id number] 12/05/2014 12/05/2014 Prakash Reid MD 4m f/u [id number] 12/12/2014 12/12/2014 Prakash Reid MD 4m f/u [id number] 12/12/2014 12/12/2014 Prakash Reid MD 4m f/u [id number] 12/12/2014 12/12/2014 Prakash Reid MD 4m f/u [id number] 12/12/2014 12/12/2014 Prakash Reid MD 4m f/u [id number] 12/12/2014 12/12/2014 Prakash Reid MD 4m f/u [id number] 12/12/2014 12/12/2014 Prakash Reid MD 4m f/u [id number] 12/12/2014 12/12/2014 Prakash Reid MD 4m f/u [id number] 12/12/2014 12/12/2014 Prakash Reid MD 4m f/u [id number] 12/12/2014 12/12/2014 Prakash Reid MD 4m f/u [id number] 12/12/2014 12/12/2014 Prakash Reid MD 4m f/u [id number] 12/12/2014 12/12/2014 Prakash Reid MD 4m f/u [id number] 12/12/2014 12/12/2014 Prakash Reid MD 4m f/u [id number] 12/12/2014 12/12/2014 Prakash Reid MD 4m f/u [id number] 12/12/2014 12/12/2014 Prakash Reid MD 4m f/u [id number] 12/12/2014 12/12/2014 Prakash Reid MD 4m f/u [id number] 12/12/2014 12/12/2014 Prakash Reid MD 4m f/u [id number] 12/12/2014 12/12/2014 Prakash Reid MD 4m f/u [id number] 12/12/2014 12/12/2014 Prakash Reid MD 4m f/u [id number] 12/12/2014 12/12/2014 Prakash Reid MD 4m f/u [id number] 12/12/2014 12/12/2014 Prakash Reid MD 4m f/u [id number] 12/12/2014 12/12/2014 Prakash Reid MD 4m f/u [id number] 12/12/2014 12/12/2014 Prakash Reid MD 4m f/u [id number] 12/12/2014 12/12/2014 Prakash Reid MD 4m f/u [id number] 12/12/2014 12/12/2014 Prakash Reid MD 4m f/u [id number] 12/12/2014 12/12/2014 Prakash Reid MD 4m f/u [id number] 12/12/2014 12/12/2014 Prakash Reid MD 4m f/u [id number] 12/12/2014 12/12/2014 Prakash Reid MD folic acid [id number] 12/17/2014 12/17/2014 Prakash Reid MD folic acid [id number] 12/17/2014 12/17/2014 Prakash Reid MD folic acid [id number] 12/17/2014 12/17/2014 Prakash Reid MD folic acid [id number] 12/17/2014 12/17/2014 Prakash Reid MD folic acid [id number] 12/17/2014 12/17/2014 Prakash Reid MD folic acid [id number] 12/17/2014 12/17/2014 Prakash Reid MD folic acid [id number] 12/17/2014 12/17/2014 Prakash Reid MD folic acid [id number] 12/17/2014 12/17/2014 Prakash Reid MD folic acid [id number] 12/17/2014 12/17/2014 Prakash Reid MD folic acid 4at25vlb-9uzc-6y5n-r55r-44mb4c5707b3 12/17/2014 12/17/2014 Prakash Reid MD folic acid 28n447fo-5s79-99b8-s509-dz9t7uc8r620 12/17/2014 12/17/2014 Prakash Reid MD folic acid x63g4f00-8156-3u3w-d708-u423j0613jw5 12/17/2014 12/17/2014 Prakash Reid MD folic acid 5lnm2vx7-6i29-68a8-508q-1863xl494w2f 12/17/2014 12/17/2014 Prakash Reid MD folic acid [id number]-rt04-18z104l2otq3 12/17/2014 12/17/2014 Prakash Reid MD folic acid 005a2r58-t26c-7nv1-23l1-9i07ep0dg43k 12/17/2014 12/17/2014 Prakash Reid MD folic acid [id number]-z1j8-018630t3329h 12/17/2014 12/17/2014 Prakash Reid MD folic acid 013325z1-2214-7f01-z366-x77h6j88zor9 12/17/2014 12/17/2014 Prakash Reid MD folic acid 4t1x32dl-j85x-1470-63sm-9y4hib5z0i0p 12/17/2014 12/17/2014 Prakash Reid MD folic acid ex4k7000-3199-1v6t-l551-ag40tc53043m 12/17/2014 12/17/2014 Prakash Reid MD folic acid 36pql68j-jw02-7v17-9o85-pm4i8r77dcr8 12/17/2014 12/17/2014 Prakash Reid MD folic acid 0n620d20-f77v-0482-m131-8yc4h55u6m2c 12/17/2014 12/17/2014 Prakash Reid MD folic acid 4408ed72-035c-8021-xh3e-0lx8z3w42v8n 12/17/2014 12/17/2014 Prakash Reid MD folic acid 4340319k-6644-29hy-1653-806503xm9020 12/17/2014 12/17/2014 Prakash Reid MD folic acid 5f61z0am-b617-6826-yn45-42a12448136n 12/17/2014 12/17/2014 Prakash Reid MD folic acid 071gw830-8eg7-3135-34y0-962dbebv2u32 12/17/2014 12/17/2014 Prakash Reid MD folic acid 000176oj-5oz1-6688-604u-f7b3761w93lr 12/17/2014 12/17/2014 Prakash Reid MD folic acid um86318y-5z94-1yjk-8p2z-85651304x89z 12/17/2014 12/17/2014 Prakash Reid MD folic acid s63l9j5c-2bn0-6940-zk2h-r0ix6726g6w6 12/17/2014 12/17/2014 Prakash Reid MD folic acid 4eh37126-6e88-55z6-4h9b-s6bml80y16h9 12/17/2014 12/17/2014 Prakash Reid MD folic acid 5543070u-nv0l-7tir-k7u4-8a11p8s191kp 12/17/2014 12/17/2014 Prakash Reid MD folic acid [id number]-9eu1-erq4-28d06779t2p9 12/17/2014 12/17/2014 Prakash Reid MD folic acid qi5x09xd-nu60-30kk-8v25-a2nsg1w01cmb 12/17/2014 12/17/2014 Prakash Reid MD 1 mo f/u 14ij4n91-22i9-9iz9-83r2-xb1989a3j57v 01/13/2015 01/13/2015 Prakash Reid MD 1 mo f/u r24nm596-v0c5-929h-kp0r-qlz6la316lgr 01/13/2015 01/13/2015 Prakash Reid MD 1 mo f/u dpl0870p-6qq8-4m16-fy2e-306756qxh79h 01/13/2015 01/13/2015 Prakash Reid MD 1 mo f/u 2386wke9-4p16-9136-719y-5132155436ab 01/13/2015 01/13/2015 Prakash Reid MD 1 mo f/u 9y63b58j-uls3-5d15-5b37-6q524e629lal 01/13/2015 01/13/2015 rPakash Reid MD 1 mo f/u 61923p79-iq88-41u1-g701-f330097ae861 01/13/2015 01/13/2015 Prakash Reid MD 1 mo f/u 9ku39924-5225-5v5u-z5o0-po4pplasl8wb 01/13/2015 01/13/2015 Prakash Reid MD 1 mo f/u 5xt5gw20-wo2q-1256-sxhe-95qcx5r65x27 01/13/2015 01/13/2015 Prakash Reid MD 1 mo f/u k047960l-45l7-826w-938g-26hc5lxiq9h4 01/13/2015 01/13/2015 Prakash Reid MD 1 mo f/u 81104zty-346z-5838-232o-s98h4q5970p0 01/13/2015 01/13/2015 Prakash Reid MD 1 mo f/u 3o193445-1v0d-1763-7ss9-175nq824j96a 01/13/2015 01/13/2015 Prakash Reid MD 1 mo f/u [id number]-x11o-5187-o2z9-07rj1rl63033 01/13/2015 01/13/2015 Prakash Reid MD 1 mo f/u 069p0p8t-0036-0v95-2jj7-07xh4i1p4h3w 01/13/2015 01/13/2015 Prakash Reid MD 1 mo f/u 673p2e2n-304m-578s-2tpm-763gs11xx613 01/13/2015 01/13/2015 Prakash Reid MD 1 mo f/u t9v2xt0s-3136-9r46-93r9-q952m7n720s0 01/13/2015 01/13/2015 Prakash Reid MD 1 mo f/u 59847916-2d15-92l8-84n9-z2c39a9364bu 01/13/2015 01/13/2015 Prakash Reid MD 1 mo f/u o9y8o8ui-s304-1375-270q-v8a9r485t86h 01/13/2015 01/13/2015 Prakash Reid MD 1 mo f/u 412yf870-6734-04l3-r24r-8r6x22jl7w23 01/13/2015 01/13/2015 Prakash Reid MD 1 mo f/u 3194202o-4258-8o6e-v6k6-8804gvj8376o 01/13/2015 01/13/2015 Prakash Reid MD 1 mo f/u 7924y162-1i3y-05v1-43e9-9i6g3491888t 01/13/2015 01/13/2015 Prakash Reid MD 1 mo f/u 13c0654a-2n1e-8625-x2r1-7j5b8xa767h0 01/13/2015 01/13/2015 Prakash Reid MD 1 mo f/u 4r9859c6-o5h8-112g-3e59-7e581542021u 01/13/2015 01/13/2015 Prakash Reid MD 1 mo f/u 3k59wnll-t9q5-21s9-s256-f1769z90z333 01/13/2015 01/13/2015 Prakash Reid MD 1 mo f/u 740zw231-b192-8x8x-6766-88dj6524365t 01/13/2015 01/13/2015 Prakash Reid MD 1 mo f/u f67e5802-31w8-3u76-sn5r-95639rd8x635 01/13/2015 01/13/2015 Prakash Reid MD 1 mo f/u g2516c66-rn07-4281-sc03-0x8478k03374 01/13/2015 01/13/2015 Prakash Reid MD 1 mo f/u 89de30r5-y2s5-8196-5n36-l1tv3668208k 01/13/2015 01/13/2015 Prakash Reid MD 1 mo f/u 3w67hz56-kggm-223j-14mc-1ma41ou394i6 01/13/2015 01/13/2015 Prakash Reid MD 1 mo f/u 93lf924k-l080-684p-1jq7-n3v2504amtv8 01/13/2015 01/13/2015 Prakash Reid MD 1 mo f/u i7s1z8c9-5t0n-968h-9859-83c8rj32q95g 01/13/2015 01/13/2015 Prakash Reid MD 1 mo f/u 40g3256p-03d2-59v3-46jx-c026455a58dc 01/13/2015 01/13/2015 Prakash Reid MD f/u [place] 4136s1p9-ckr9-7362-96j0-1vhx271pg3e2 02/13/2015 02/13/2015 Prakash Reid MD f/u [place] p82a9133-x1u4-5643-4b06-6t4yl836g412 02/13/2015 02/13/2015 Prakash Reid MD f/u [place] z54f99jq-xh67-49fm-v803-250010t1t077 02/13/2015 02/13/2015 Prakash Reid MD f/u [place] 95105umv-tv49-4038-566i-80d67258f470 02/13/2015 02/13/2015 Prakash Reid MD f/u [place] 2e2qm3na-76pn-6sn2-3636-91aef5v32a05 02/13/2015 02/13/2015 Prakash Reid MD f/u [place] 196dt6x1-2g2g-8vq2-04d0-d77p9fk67n91 02/13/2015 02/13/2015 Prakash Reid MD f/u [place] rc48oeg3-4od7-74l2-ys97-0421h6330n49 02/13/2015 02/13/2015 rPakash Reid MD f/u [place] 24h55v83-0d4q-9280-5a03-n3r41vh7bd26 02/13/2015 02/13/2015 Prakash Reid MD f/u [place] 907ipq74-95l9-3k19-bm1n-848o0135785x 02/13/2015 02/13/2015 Prakash Reid MD f/u [place] y6t62qby-1mbn-1941-1948-09o740wd3gjb 02/13/2015 02/13/2015 Prakash Reid MD f/u [place] 62n9108e-34yu-3a41-k901-1d792s82n8gh 02/13/2015 02/13/2015 Prakash Reid MD f/u [place] 0uu4r912-kpd0-6377-5sj5-6igt1v814y4c 02/13/2015 02/13/2015 Prakash Reid MD f/u [place] i6dur0w9-0747-17sg-furo-342nw48f50g4 02/13/2015 02/13/2015 Prakash Reid MD f/u [place] 23a43s5a-26rx-1lp8-a93u-87022w87dy5f 02/13/2015 02/13/2015 Prakash Reid MD f/u [place] 21861d84-l145-5491-59t1-9734l676m8hz 02/13/2015 02/13/2015 Prakash Reid MD f/u [place] x01024a1-8007-0x84-f4vc-x42xh3q61893 02/13/2015 02/13/2015 Prakash Reid MD f/u [place] 50275o41-6806-0852-j67v-wxk9b656t453 02/13/2015 02/13/2015 Prakash Reid MD f/u [place] 381v8e47-9xnl-10a2-c947-v943821z75j0 02/13/2015 02/13/2015 Prakash Reid MD f/u [place] 23ao32m3-16s7-7d6h-n078-0k7060uik5b2 02/13/2015 02/13/2015 Prakash Reid MD f/u [place] oip09381-6027-9zco-69m9-m595gf63q7p5 02/13/2015 02/13/2015 Prakash Reid MD f/u [place] 03t70342-t4q9-5v4g-v32h-7u94i74eqj71 02/13/2015 02/13/2015 Prakash Reid MD f/u [place] 200x76qr-6f55-3oo2-a88d-0kk4fb5mc41q 02/13/2015 02/13/2015 Prakash Reid MD f/u [place] 8c19de05-s585-1yu8-r1d9-42430c5d5p68 02/13/2015 02/13/2015 Prakash Reid MD f/u [place] 4ehz6o76-sz61-9ll6-4032-6s69oqf8d194 02/13/2015 02/13/2015 Prakash Reid MD f/u [place] 655d38g3-8ipr-1376-614d-87834892fs23 02/13/2015 02/13/2015 Prakash Reid MD f/u [place] 5b82304j-9x3v-60d7-723w-4i919kn4h5r4 02/13/2015 02/13/2015 [facility]-4247-0191-g358-01620131674z 02/13/2015 02/13/2015 Prakash Reid MD f/u [place] n527s149-un66-9h07-d128-231i6s743738 02/13/2015 02/13/2015 Prakash Reid MD f/u [place] q6b5kc73-a5m5-66l3-f5kg-9in48aa6506z 02/13/2015 02/13/2015 Prakash Reid MD f/u [place] c3356al2-g428-1283-a558-7x7y8t0zlwh7 02/13/2015 02/13/2015 Prakash Reid MD f/u [place] i506gska-f933-0368-6669-1lf973l92o39 02/13/2015 02/13/2015 Prakash Reid MD DEXA jv537b75-91es-80xt-m7zo-lv673gbk1f80 02/16/2015 02/16/2015 Prakash Reid MD DEXA 65nvk37w-w955-0474-kghn-8dbv08pb41j0 02/16/2015 02/16/2015 Prakash Reid MD DEXA 268n9t48-x551-217i-x3x9-708s86l27941 02/16/2015 02/16/2015 Prakash Reid MD DEXA 5t67r158-4a8f-870m-g7n4-x69885w09647 02/16/2015 02/16/2015 Prakash Reid MD DEXA [id number]-7opq-74u8v27ga8k3 02/16/2015 02/16/2015 Prakash Reid MD DEXA 6t630iyd-q0a0-9859-pn79-03v96152231u 02/16/2015 02/16/2015 Prakash Reid MD DEXA [id number]-8726-vs5q-4u1x7izl0tx6 02/16/2015 02/16/2015 Prakash Reid MD DEXA [id number] 02/16/2015 02/16/2015 Prakash Reid MD DEXA 26bm8089-0639-247i-ozt2-8ey91ytel75r 02/16/2015 02/16/2015 Prakash Reid MD DEXA o8n2924s-6h05-404m-e030-10n1n799tsi2 02/16/2015 02/16/2015 Prakash Reid MD DEXA 0oab52r3-y02s-8829-nm97-35l1tmt038v4 02/16/2015 02/16/2015 Prakash Reid MD DEXA [id number] 02/16/2015 02/16/2015 Prakash Reid MD DEXA [id number]-[id number] 02/16/2015 02/16/2015 Prakash Reid MD DEXA [id number] 02/16/2015 02/16/2015 Prakash Reid MD DEXA [id number] 02/16/2015 02/16/2015 Prakash Reid MD DEXA [id number]-72a5d3f41p61 02/16/2015 02/16/2015 Prakash Reid MD DEXA 573kv7qz-8tqw-2h95-yj64-8405628999m8 02/16/2015 02/16/2015 Prakash Reid MD DEXA de5678a7-[id number]-319l-zgrv3h268679 02/16/2015 02/16/2015 Prakash Reid MD DEXA [id number]-f7jc-99146qi370u4 02/16/2015 02/16/2015 Prakash Reid MD DEXA [id number]-66y4-n4f1-18hh3b9j07z9 02/16/2015 02/16/2015 Prakash Reid MD DEXA [id number]-5i9x-904x-q3mr32157ju3 02/16/2015 02/16/2015 Prakash Reid MD DEXA [id number]-92h2r84o956m 02/16/2015 02/16/2015 Prakash Reid MD DEXA 5r8s99bl-2v63-35d2-744n-2948re91j064 02/16/2015 02/16/2015 Prakash Reid MD DEXA [id number]-0u54-9b1u-xa1y7t672cmg 02/16/2015 02/16/2015 Prakash Reid MD DEXA [id number]-[id number]-9762-ko2t4a79r7po 02/16/2015 02/16/2015 Prakash Reid MD DEXA [id number] 02/16/2015 02/16/2015 Prakash Reid MD DEXA [id number]-h1h559864q88 02/16/2015 02/16/2015 Prakash Reid MD DEXA [id number] 02/16/2015 02/16/2015 Prakash Reid MD DEXA [id number]-dn3bid3saqe0 02/16/2015 02/16/2015 Prakash Reid MD DEXA [id number] 02/16/2015 02/16/2015 Prakash Reid MD DEXA [id number]-647e-hn1z-[id number] 02/16/2015 02/16/2015 Prakash Reid MD Unknown [id number] 03/14/2015 03/14/2015 Prakash Reid MD Unknown [id number] 03/14/2015 03/14/2015 Prakash Reid MD Unknown [id number] 03/14/2015 03/14/2015 Prakash Reid MD Unknown [id number] 03/14/2015 03/14/2015 Prakash Reid MD Unknown [id number] 03/14/2015 03/14/2015 Prakash Reid MD Unknown [id number] 03/14/2015 03/14/2015 Prakash Reid MD Unknown [id number] 03/14/2015 03/14/2015 Prakash Reid MD Unknown [id number] 03/14/2015 03/14/2015 Prakash Reid MD Unknown [id number] 03/14/2015 03/14/2015 Prakash Reid MD Unknown [id number] 03/14/2015 03/14/2015 Prakash Reid MD Unknown [id number] 03/14/2015 03/14/2015 Prakash Reid MD Unknown [id number] 03/14/2015 03/14/2015 Prakash Reid MD Unknown [id number] 03/14/2015 03/14/2015 Prakash Reid MD Unknown [id number] 03/14/2015 03/14/2015 Prakash Reid MD Unknown [id number] 03/14/2015 03/14/2015 Prakash Reid MD Unknown [id number] 03/14/2015 03/14/2015 Prakash Reid MD Unknown [id number] 03/14/2015 03/14/2015 Prakash Reid MD Unknown [id number] 03/14/2015 03/14/2015 Prakash Reid MD Unknown [id number] 03/14/2015 03/14/2015 Prakash Reid MD Unknown [id number] 03/14/2015 03/14/2015 Prakash Reid MD Unknown [id number] 03/14/2015 03/14/2015 Prakash Reid MD Unknown [id number] 03/14/2015 03/14/2015 Prakash Reid MD Unknown [id number] 03/14/2015 03/14/2015 Prakash Reid MD Unknown [id number] 03/14/2015 03/14/2015 Prakash Reid MD Unknown [id number] 03/14/2015 03/14/2015 Prakash Reid MD Unknown [id number] 03/14/2015 03/14/2015 Prakash Reid MD Unknown [id number] 03/14/2015 03/14/2015 Prakash Reid MD Unknown [id number] 03/14/2015 03/14/2015 Prakash Reid MD Unknown [id number] 03/14/2015 03/14/2015 Prakash Reid MD Research [id number] 03/17/2015 03/17/2015 Prakash Reid MD Research [id number] 03/17/2015 03/17/2015 Prakash Reid MD Research [id number] 03/17/2015 03/17/2015 Prakash Reid MD Research [id number] 03/17/2015 03/17/2015 Prakash Reid MD Research [id number] 03/17/2015 03/17/2015 Prakash Reid MD Research [id number] 03/17/2015 03/17/2015 Prakash Reid MD Research [id number] 03/17/2015 03/17/2015 Prakash Reid MD Research [id number] 03/17/2015 03/17/2015 Prakash Reid MD Research [id number] 03/17/2015 03/17/2015 Prakash Reid MD Research [id number] 03/17/2015 03/17/2015 Prakash Reid MD Research [id number] 03/17/2015 03/17/2015 Prakash Reid MD Research [id number] 03/17/2015 03/17/2015 Prakash Reid MD Research [id number] 03/17/2015 03/17/2015 Prakash Reid MD Research [id number] 03/17/2015 03/17/2015 Prakash Reid MD Research [id number] 03/17/2015 03/17/2015 Prakash Reid MD Research [id number] 03/17/2015 03/17/2015 Prakash Reid MD Research [id number] 03/17/2015 03/17/2015 Prakash Reid MD Research [id number] 03/17/2015 03/17/2015 Prakash Reid MD Research [id number] 03/17/2015 03/17/2015 Prakash Reid MD Research [id number] 03/17/2015 03/17/2015 Prakash Reid MD Research [id number] 03/17/2015 03/17/2015 Prakash Reid MD Research [id number] 03/17/2015 03/17/2015 Prakash Reid MD Research [id number] 03/17/2015 03/17/2015 Prakash Reid MD Research [id number] 03/17/2015 03/17/2015 Prakash Reid MD Research [id number] 03/17/2015 03/17/2015 Prakash Reid MD Research [id number] 03/17/2015 03/17/2015 Prakash Reid MD Research [id number] 03/17/2015 03/17/2015 Prakash Reid MD Research [id number] 03/17/2015 03/17/2015 Prakash Reid MD Research [id number] 03/17/2015 03/17/2015 Prakash Reid MD Unknown [id number] 04/15/2015 04/15/2015 Prakash Reid MD Unknown [id number] 04/15/2015 04/15/2015 Prakash Reid MD Unknown [id number] 04/15/2015 04/15/2015 Prakash Reid MD Unknown [id number] 04/15/2015 04/15/2015 Prakash Reid MD Unknown [id number] 04/15/2015 04/15/2015 Prakash Reid MD Unknown [id number] 04/15/2015 04/15/2015 Prakash Reid MD Unknown [id number] 04/15/2015 04/15/2015 Prakash Reid MD Unknown [id number] 04/15/2015 04/15/2015 Prakash Reid MD Unknown [id number] 04/15/2015 04/15/2015 Prakash Reid MD Unknown [id number] 04/15/2015 04/15/2015 Prakash Reid MD Unknown [id number] 04/15/2015 04/15/2015 Prakash Reid MD Unknown [id number] 04/15/2015 04/15/2015 Prakash Reid MD Unknown [id number] 04/15/2015 04/15/2015 Prakash Reid MD Unknown [id number] 04/15/2015 04/15/2015 Prakash Reid MD Unknown [id number] 04/15/2015 04/15/2015 Prakash Reid MD Unknown [id number] 04/15/2015 04/15/2015 Prakash Reid MD Unknown [id number] 04/15/2015 04/15/2015 Prakash Reid MD Pt complaint [id number] 04/15/2015 04/15/2015 Prakash Reid MD Pt complaint [id number] 04/15/2015 04/15/2015 Prakash Reid MD Pt complaint [id number] 04/15/2015 04/15/2015 Prakash Reid MD Pt complaint [id number] 04/15/2015 04/15/2015 Prakash Reid MD Pt complaint [id number] 04/15/2015 04/15/2015 Prakash Reid MD Pt complaint [id number] 04/15/2015 04/15/2015 Prakash Reid MD Pt complaint [id number] 04/15/2015 04/15/2015 Prakash Reid MD Pt complaint [id number] 04/15/2015 04/15/2015 Prakash Reid MD Pt complaint [id number] 04/15/2015 04/15/2015 Prakash Reid MD Pt complaint [id number] 04/15/2015 04/15/2015 Prakash Reid MD Pt complaint [id number] 04/15/2015 04/15/2015 Prakash Reid MD Pt complaint [id number] 04/15/2015 04/15/2015 Prakash Reid MD Pt complaint [id number] 04/15/2015 04/15/2015 Prakash Reid MD Pt complaint [id number] 04/15/2015 04/15/2015 Prakash Reid MD Pt complaint [id number] 04/15/2015 04/15/2015 Prakash Reid MD Pt complaint [id number] 04/15/2015 04/15/2015 Prakash Reid MD Pt complaint [id number] 04/15/2015 04/15/2015 Prakash Reid MD Unknown [id number] 04/15/2015 04/15/2015 Prakash Reid MD Unknown [id number] 04/15/2015 04/15/2015 Prakash Reid MD Unknown [id number] 04/15/2015 04/15/2015 Prakash Reid MD Unknown [id number] 04/15/2015 04/15/2015 Prakash Reid MD Unknown [id number] 04/15/2015 04/15/2015 Prakash Reid MD Unknown [id number] 04/15/2015 04/15/2015 Prakash Reid MD Unknown [id number] 04/15/2015 04/15/2015 Prakash Reid MD Unknown [id number] 04/15/2015 04/15/2015 Prakash Reid MD Unknown [id number] 04/15/2015 04/15/2015 Prakash Reid MD Unknown [id number] 04/15/2015 04/15/2015 Prakash Reid MD Unknown [id number] 04/15/2015 04/15/2015 Prakash Reid MD Unknown [id number] 04/15/2015 04/15/2015 Prakash Reid MD Pt complaint [id number] 04/15/2015 04/15/2015 Prakash Reid MD Pt complaint [id number] 04/15/2015 04/15/2015 Prakash Reid MD Pt complaint [id number] 04/15/2015 04/15/2015 Prakash Reid MD Pt complaint [id number] 04/15/2015 04/15/2015 Prakash Reid MD Pt complaint [id number] 04/15/2015 04/15/2015 Prakash Reid MD Pt complaint [id number] 04/15/2015 04/15/2015 Prakash Reid MD Pt complaint [id number] 04/15/2015 04/15/2015 Prakash Reid MD Pt complaint [id number] 04/15/2015 04/15/2015 Prakash Reid MD Pt complaint [id number] 04/15/2015 04/15/2015 Prakash Reid MD Pt complaint [id number] 04/15/2015 04/15/2015 Prakash Reid MD Pt complaint [id number] 04/15/2015 04/15/2015 Prakash Reid MD Pt complaint [id number] 04/15/2015 04/15/2015 Prakash Reid MD DEXA [id number] 04/28/2015 04/28/2015 Prakash Reid MD DEXA [id number] 04/28/2015 04/28/2015 Prakash Reid MD DEXA [id number] 04/28/2015 04/28/2015 Prakash Reid MD DEXA [id number] 04/28/2015 04/28/2015 Prakash Reid MD DEXA [id number] 04/28/2015 04/28/2015 Prakash Reid MD DEXA [id number] 04/28/2015 04/28/2015 Prakash Reid MD DEXA [id number] 04/28/2015 04/28/2015 Prakash Reid MD DEXA [id number] 04/28/2015 04/28/2015 Prakash Reid MD DEXA [id number] 04/28/2015 04/28/2015 Prakash Reid MD DEXA [id number] 04/28/2015 04/28/2015 Prakash Reid MD DEXA [id number] 04/28/2015 04/28/2015 Prakash Reid MD DEXA [id number] 04/28/2015 04/28/2015 Prakash Reid MD DEXA [id number] 04/28/2015 04/28/2015 Prakash Reid MD DEXA [id number] 04/28/2015 04/28/2015 Prakash Reid MD DEXA [id number] 04/28/2015 04/28/2015 Prakash Reid MD DEXA [id number] 04/28/2015 04/28/2015 Prakash Reid MD DEXA [id number] 04/28/2015 04/28/2015 Prakash Reid MD DEXA [id number] 04/28/2015 04/28/2015 Prakash Reid MD DEXA [id number] 04/28/2015 04/28/2015 Prakash Reid MD DEXA [id number] 04/28/2015 04/28/2015 Prakash Reid MD DEXA [id number] 04/28/2015 04/28/2015 Prakash Reid MD DEXA [id number] 04/28/2015 04/28/2015 Prakash Reid MD DEXA [id number] 04/28/2015 04/28/2015 Prakash Reid MD DEXA [id number] 04/28/2015 04/28/2015 Prakash Reid MD DEXA [id number] 04/28/2015 04/28/2015 Prakash Reid MD DEXA [id number] 04/28/2015 04/28/2015 Prakash Reid MD DEXA [id number] 04/28/2015 04/28/2015 Prakash Reid MD DEXA [id number] 04/28/2015 04/28/2015 Prakash Reid MD DEXA [id number] 04/28/2015 04/28/2015 Prakash Reid MD Unknown [id number] 06/12/2015 06/12/2015 Prakash Reid MD Unknown [id number] 06/12/2015 06/12/2015 Prakash Reid MD Unknown [id number] 06/12/2015 06/12/2015 Prakash Reid MD Unknown [id number] 06/12/2015 06/12/2015 Prakash Reid MD Unknown [id number] 06/12/2015 06/12/2015 Prakash Reid MD Unknown [id number] 06/12/2015 06/12/2015 Prakash Reid MD Unknown [id number] 06/12/2015 06/12/2015 Prakash Reid MD Unknown [id number] 06/12/2015 06/12/2015 Prakash Reid MD Unknown [id number] 06/12/2015 06/12/2015 Prakash Reid MD Unknown [id number] 06/12/2015 06/12/2015 Prakash Reid MD Unknown [id number] 06/12/2015 06/12/2015 Prakash Reid MD Unknown [id number] 06/12/2015 06/12/2015 Prakash Reid MD Unknown [id number] 06/12/2015 06/12/2015 Prakash Reid MD Unknown [id number] 06/12/2015 06/12/2015 Prakash Reid MD Unknown [id number] 06/12/2015 06/12/2015 Prakash Reid MD Unknown [id number] 06/12/2015 06/12/2015 Prakash Reid MD Unknown [id number] 06/12/2015 06/12/2015 Prakash Reid MD Unknown [id number] 06/12/2015 06/12/2015 Prakash Reid MD Unknown [id number] 06/12/2015 06/12/2015 Prakash Reid MD Unknown [id number] 06/12/2015 06/12/2015 Prakash Reid MD Unknown [id number] 06/12/2015 06/12/2015 Prakash Reid MD Unknown [id number] 06/12/2015 06/12/2015 Prakash Reid MD Unknown [id number] 06/12/2015 06/12/2015 Prakash Reid MD Unknown [id number] 06/12/2015 06/12/2015 Prakash Reid MD Unknown [id number] 06/12/2015 06/12/2015 Prakash Reid MD F/U 95itino7-524j-1t15-9v01-70ly8i419468 07/10/2015 07/10/2015 Prakash Reid MD F/U 09e0i90b-67c2-044d-avxn-5i89973p36n1 07/10/2015 07/10/2015 Prakash Reid MD F/U [id number]-87o0p0lzej93 07/10/2015 07/10/2015 Prakash Reid MD F/U 14v1z799-d4p0-4912-1k19-2916s774vqo6 07/10/2015 07/10/2015 Prakash Reid MD F/U 9w43b62v-ip23-6f97-050e-wc2l223dr4fo 07/10/2015 07/10/2015 Prakash Reid MD F/U 9ga7r677-1qh6-4531-93b3-x99ddzht4wod 07/10/2015 07/10/2015 Prakash Reid MD F/U km8e3fp0-4z2q-553a-q9zg-r5fmcyv5w5p3 07/10/2015 07/10/2015 Prakash Reid MD F/U [id number]-2x85-95jh-j7tkh04853q1 07/10/2015 07/10/2015 Prakash Reid MD F/U zl523mjv-50km-33v0-9301-38g550d27180 07/10/2015 07/10/2015 Prakash Reid MD F/U 6mrtnd31-78et-11ix-dg32-924r80hi7o16 07/10/2015 07/10/2015 Prakash Reid MD F/U 07lh9ip2-6tg8-669w-c7m6-571t89k2a648 07/10/2015 07/10/2015 Prakash Reid MD F/U 92p5o486-z3s9-74iw-[id number] 07/10/2015 07/10/2015 Prakash Reid MD F/U e6s7e762-f5n3-4yg8-2690-o781za6e1952 07/10/2015 07/10/2015 Prakash Reid MD F/U 50p341g1-oi6m-799b-vw91-131cqas37v68 07/10/2015 07/10/2015 Prakash Reid MD F/U 83dvu6m2-4g9q-2i29-z7uq-3l98446g9o49 07/10/2015 07/10/2015 Prakash Reid MD F/U 81piksw4-75z4-9q28-p06v-5w7q854o0q31 07/10/2015 07/10/2015 Prakash Reid MD F/U q764b5x9-72u8-56j6-z2c4-566s18v46h4v 07/10/2015 07/10/2015 Prakash Reid MD F/U 0s9nk181-8100-4e4r-zuv1-i43j370q87nb 07/10/2015 07/10/2015 Prakash Reid MD F/U 25f7p9c3-4b9y-0qe3-bhc8-1a41b9b9ui61 07/10/2015 07/10/2015 Prakash Reid MD F/U na512z4y-9x07-0143-13j5-ra2x041o8v79 07/10/2015 07/10/2015 Prakash Reid MD F/U 8808430h-5n6i-3546-ax0q-6fv08e1f483w 07/10/2015 07/10/2015 Prakash Reid MD F/U uhl9e27v-g5j7-5208-c539-74tm8y8x468r 07/10/2015 07/10/2015 Prakash Reid MD F/U sg1kjh6f-1451-254b-8z4s-b09632z4j3ul 07/10/2015 07/10/2015 Prakash Reid MD F/U 9p15140x-46g0-7942-a3p5-u23j08ky7z65 07/10/2015 07/10/2015 Prakash Reid MD DEXA e8htig91-5z07-7691-4np0-4h2e3i96475t 07/25/2015 07/25/2015 Prakash Reid MD DEXA vty67s93-864g-[id number]-yx7b9z14tr72 07/25/2015 07/25/2015 Prakash Reid MD DEXA 3f6sm26s-8z72-7ymb-82j0-048suj25n21i 07/25/2015 07/25/2015 Prakash Reid MD DEXA 8q19q156-p512-8106-fs48-a602g227d362 07/25/2015 07/25/2015 Prakash Reid MD DEXA 97lbj209-46r3-6d22-z14l-y30z7037jbn4 07/25/2015 07/25/2015 Prakash Reid MD DEXA 1s0kg889-3j9c-7915-h0xv-065g5xpl6xcf 07/25/2015 07/25/2015 Prakash Reid MD DEXA h4w43f0z-z432-1357-3516-c61d97r35123 07/25/2015 07/25/2015 Prakash Reid MD DEXA 29979xey-i52d-52hg-0u1c-nab382rbk553 07/25/2015 07/25/2015 Prakash Reid MD DEXA [id number]-rl58-27i0-24m9-9rcu74z85727 07/25/2015 07/25/2015 Prakash Reid MD DEXA 635f0y39-48b1-5960-f4o8-fg163n11rv5r 07/25/2015 07/25/2015 Prakash Reid MD DEXA 54id73e5-349z-2q41-m263-0m156iv6434f 07/25/2015 07/25/2015 Prakash Reid MD DEXA [id number]-45n9-37808i805076 07/25/2015 07/25/2015 Prakash Reid MD DEXA [id number]-7oo4-7b17-4585037126a9 07/25/2015 07/25/2015 Prakash Reid MD DEXA 6h14d242-58x1-07ol-s873-n11a4o243818 07/25/2015 07/25/2015 Prakash Reid MD DEXA g5w736wf-8037-56ys-80e7-5k0329p6n870 07/25/2015 07/25/2015 Parkash Reid MD DEXA [id number] 07/25/2015 07/25/2015 Prakash Reid MD DEXA 63e5192q-e2u4-3s17-9521-fz75kde20x18 07/25/2015 07/25/2015 Prakash Reid MD DEXA 457fn890-t58t-07v0-l162-10q13941t6zn 07/25/2015 07/25/2015 Prakash Reid MD DEXA 651r7648-696s-5991-439x-v7g23s177x36 07/25/2015 07/25/2015 Prakash Reid MD DEXA 05fn3068-11i2-157f-sa01-i254aue6x9v0 07/25/2015 07/25/2015 Prakash Reid MD DEXA [id number]-t2g7-0mye94998yoe 07/25/2015 07/25/2015 Prakash Reid MD DEXA qtf60466-sjxt-17ow-94y2-8924my38z18f 07/25/2015 07/25/2015 Prakash Reid MD DEXA [id number]-w810-92138079oy4y 07/25/2015 07/25/2015 Prakash Reid MD DEXA xk92r03g-l3c4-5291-gtq8-468u9774c8kp 07/25/2015 07/25/2015 Prakash Reid MD F/U 349gn5bf-bcqh-0ty0-3685-8f7li8zl3do0 08/11/2015 08/11/2015 Prakash Reid MD F/U w2nbchq0-c31a-7243-1hn8-4j8711sxk8u1 08/11/2015 08/11/2015 Prakash Reid MD F/U 1vlc51i7-87s4-3jb6-ls56-9z095a63d699 08/11/2015 08/11/2015 Prakash Reid MD F/U v7tv34zh-6b11-0mb5-bkc5-7g55x5602ud6 08/11/2015 08/11/2015 Prakash Reid MD F/U 332g2n08-407t-3645-6r8k-12b03f59b185 08/11/2015 08/11/2015 Prakash Reid MD F/U 10dm255f-s3az-5507-sbaj-itxw1i1k869g 08/11/2015 08/11/2015 Prakash Reid MD F/U 5mmnv5vi-12tv-85b9-gf0j-pa8n4t9335a0 08/11/2015 08/11/2015 Prakash Reid MD F/U e52fs564-654s-273e-70kb-31418eyh2697 08/11/2015 08/11/2015 Prakash Reid MD F/U o8af5388-2397-7kf5-d8jr-yh66so7c90c6 08/11/2015 08/11/2015 Prakash Reid MD F/U 3j21859h-7190-15wk-q065-129277ggz293 08/11/2015 08/11/2015 Prakash Reid MD F/U xh899fpx-1c6n-322v-ye32-88sf7ngdy70d 08/11/2015 08/11/2015 Prakash Reid MD F/U 248wx871-5048-4516-jq23-795bz4jl1br2 08/11/2015 08/11/2015 Prakash Reid MD F/U 167ar7kn-ir59-0zu3-4612-2e5812d01iwf 08/11/2015 08/11/2015 Prakash Reid MD F/U 65t75282-md5e-5744-7rs0-mt41b3xlg174 08/11/2015 08/11/2015 Prakash Reid MD F/U 115d0d07-5451-18md-46z0-az97380wt60p 08/11/2015 08/11/2015 Prakash Reid MD F/U ooy8wszc-118a-95aa-2b00-99n3i5a7p06g 08/11/2015 08/11/2015 Prakash Reid MD F/U xj6fma36-954d-9ng2-3858-63107t63egq3 08/11/2015 08/11/2015 Prakash Reid MD F/U z428j71h-iy5z-132b-0r95-0os7t235z62d 08/11/2015 08/11/2015 Prakash Reid MD F/U j17ko305-5rdy-54i0-0cn4-xv2swkzq9bkn 08/11/2015 08/11/2015 Prakash Reid MD F/U 5659hr27-t121-0cd2-f5ou-g59y13ien80q 08/11/2015 08/11/2015 Prakash Reid MD F/U 6892329k-5q11-2e98-zz9n-uv7271cv7p69 08/11/2015 08/11/2015 Prakash Reid MD F/U 4q72d2pp-91z3-8oo6-t9m7-67l43581v6u9 08/11/2015 08/11/2015 Prakash Reid MD Refill- Tramadol p7c46430-20qd-0kg8-v18v-v58ce83sq1nu 09/03/2015 09/03/2015 Prakash Reid MD Refill- Tramadol 15548133-1q49-37d3-nr7a-0w8r82g9ugn1 09/03/2015 09/03/2015 Prakash Reid MD Refill- Tramadol 1541390g-di82-1kf0-9408-52537f5v7595 09/03/2015 09/03/2015 Prakash Reid MD Refill- Tramadol l5m54r78-1f65-07m2-w17n-nee6z7155ap2 09/03/2015 09/03/2015 Prakash Reid MD Refill- Tramadol b03n7a69-2eq1-6620-w99v-agw4b9142009 09/03/2015 09/03/2015 Prakash Reid MD Refill- Tramadol 4n9ggl80-6332-24q0-w7o6-687duh7te176 09/03/2015 09/03/2015 Prakash Reid MD Refill- Tramadol s390l61b-838r-6e33-eg95-7y0787pl3721 09/03/2015 09/03/2015 Prakash Reid MD Refill- Tramadol oq1i433x-205c-6494-r9m3-32nq0j93j2z7 09/03/2015 09/03/2015 Prakash Reid MD Refill- Tramadol lx242192-zy63-54mj-4lf6-jqzj2osnp74a 09/03/2015 09/03/2015 Prakash Reid MD Refill- Tramadol 44478756-f13u-7561-e023-1293d8xt6531 09/03/2015 09/03/2015 Prakash Reid MD Refill- Tramadol a6biin34-k471-4y7i-ta7t-617nw2tommi6 09/03/2015 09/03/2015 Prakash Reid MD Refill- Tramadol o35m3903-g96x-59g9-6i41-872ra3485g11 09/03/2015 09/03/2015 Prakash Reid MD Refill- Tramadol 7ea1x370-uht5-3tm5-si23-9hgflks17474 09/03/2015 09/03/2015 Prakash Reid MD Refill- Tramadol j672yb3h-133e-2x81-h4d1-f72742kq1417 09/03/2015 09/03/2015 Prakash Reid MD Refill- Tramadol 8swa0529-m2sd-1e59-1mk0-h22r6dt40w04 09/03/2015 09/03/2015 Prakash Reid MD Refill- Tramadol 704gii3t-l487-2bqw-cf01-2k280s2d49ch 09/03/2015 09/03/2015 Prakash Reid MD Refill- Tramadol h9552k6x-u714-843q-s90r-9hp4j614f212 09/03/2015 09/03/2015 Prakash Reid MD Refill- Tramadol e0570n82-u7jo-4o14-vd8a-20r0ua7g4589 09/03/2015 09/03/2015 Prakash Reid MD Refill- Tramadol 8h5120j5-1714-534p-8534-v1r5riwj6678 09/03/2015 09/03/2015 Prakash Ried MD Refill- Tramadol 66u67o6z-6lt6-5tu3-931m-vr0ea12t4200 09/03/2015 09/03/2015 Prakash Reid MD Refill- Tramadol 8v9395fx-q73w-8608-b4z8-669414r38xk2 09/03/2015 09/03/2015 Prakash Reid MD Refill- Tramadol c7345w29-56i3-166m-z2z8-1677u4c4y777 09/03/2015 09/03/2015 Prakash Reid MD Refill- Tramadol r60263p6-37l9-557s-avh7-10s82s48hd45 09/03/2015 09/03/2015 Prakash Reid MD Refill- Tramadol rjtyk102-u23e-1261-127b-d42l0j89d89a 09/03/2015 09/03/2015 Prakash Reid MD Unknown [id number]-93fy-3ko6-1534v378z5c2 09/12/2015 09/12/2015 Prakash Reid MD Unknown [id number]-[id number] 09/12/2015 09/12/2015 Prakash Reid MD Unknown [id number]-yow8h4ukkz5i 09/12/2015 09/12/2015 Prakash Reid MD Unknown [id number] 09/12/2015 09/12/2015 Prakash Reid MD Unknown [id number] 09/12/2015 09/12/2015 Prakash Reid MD Unknown [id number] 09/12/2015 09/12/2015 Prakash Reid MD Unknown [id number] 09/12/2015 09/12/2015 Prakash Reid MD Unknown [id number] 09/12/2015 09/12/2015 Prakash Reid MD Unknown [id number] 09/12/2015 09/12/2015 Prakash Reid MD Unknown [id number] 09/12/2015 09/12/2015 Prakash Reid MD Unknown [id number] 09/12/2015 09/12/2015 Prakash Reid MD Unknown [id number] 09/12/2015 09/12/2015 Prakash Reid MD Unknown [id number] 09/12/2015 09/12/2015 Prakash Reid MD Unknown [id number] 09/12/2015 09/12/2015 Prakash Reid MD Unknown [id number] 09/12/2015 09/12/2015 Prakash Reid MD Unknown [id number] 09/12/2015 09/12/2015 Prakash Reid MD Unknown [id number] 09/12/2015 09/12/2015 Prakash Reid MD Unknown [id number] 09/12/2015 09/12/2015 Prakash Reid MD Unknown [id number] 09/12/2015 09/12/2015 Prakash Reid MD Unknown [id number] 09/12/2015 09/12/2015 Prakash Reid MD Unknown [id number] 09/12/2015 09/12/2015 Prakash Reid MD Unknown [id number] 09/12/2015 09/12/2015 Prakash Reid MD Unknown [id number] 09/12/2015 09/12/2015 Prakash Reid MD 1 [facility] FU [id number]-8b27z1j5r2fj 11/13/2015 11/13/2015 Prakash Reid MD 1 [facility] FU [id number] 11/13/2015 11/13/2015 Prakash Reid MD 1 [facility] F[facility] 2sd0lx9z-[id number]-4m2eg445w4il 11/13/2015 11/13/2015 Prakash Reid MD 1 [facility] FU [id number] 11/13/2015 11/13/2015 Prakash Reid MD 1 [facility] FU [id number]-[id number] 11/13/2015 11/13/2015 Prakash Reid MD 1 [facility] FU [id number]-[id number] 11/13/2015 11/13/2015 Prakash Reid MD 1 [facility] FU [id number]-[id number] 11/13/2015 11/13/2015 Prakash Reid MD 1 [facility] FU [id number]-1203-d3j3-[id number] 11/13/2015 11/13/2015 Prakash Reid MD 1 [facility] FU [id number] 11/13/2015 11/13/2015 Prakash Reid MD 1 [facility] FU [id number]-b3a4-0a1hl3164m6h 11/13/2015 11/13/2015 Prakash Reid MD 1 [facility] [id number]-t5fg107r2u44 11/13/2015 11/13/2015 Prakash Reid MD 1 [facility] dl9m2g60-o066-1x98-25rf-901yk70rw928 11/13/2015 11/13/2015 Prakash Reid MD 1 [facility] [id number]-c805-j2oq84355c15 11/13/2015 11/13/2015 Prakash Reid MD 1 [facility] [id number] 11/13/2015 11/13/2015 Prakash Reid MD 1 [facility] [id number] 11/13/2015 11/13/2015 Prakash Reid MD 1 [facility] [id number] 11/13/2015 11/13/2015 Prakash Reid MD 1 [facility] [id number] 11/13/2015 11/13/2015 Prakash Reid MD 1 [facility] [id number] 11/13/2015 11/13/2015 Prakash Reid MD Refill- Tramadol, Plaquenil, Prednisone [id number]-[id number]-mwkc-t497l624291v 12/11/2015 12/11/2015 Prakash Reid MD Refill- Tramadol, Plaquenil, Prednisone [id number]-qq8321yg0w0k 12/11/2015 12/11/2015 Prakash Reid MD Refill- Tramadol, Plaquenil, Prednisone [id number]-y321-u8003hyz1669 12/11/2015 12/11/2015 Prakash Reid MD Refill- Tramadol, Plaquenil, Prednisone 8m85xxrp-a7v1-508r-8bf4-3t085z8u2057 12/11/2015 12/11/2015 Prakash Reid MD Refill- Tramadol, Plaquenil, Prednisone [id number]-b716-ys658s9iu7l5 12/11/2015 12/11/2015 Prakash Reid MD Refill- Tramadol, Plaquenil, Prednisone 47ph7ou7-yb00-445g-x28g-o1ooa9127wo8 12/11/2015 12/11/2015 Prakash Reid MD Refill- Tramadol, Plaquenil, Prednisone [id number]-kqeq-06gckma98852 12/11/2015 12/11/2015 Prakash Reid MD Refill- Tramadol, Plaquenil, Prednisone [id number]-zi23-88v048ngi8e5 12/11/2015 12/11/2015 Prakash Reid MD Refill- Tramadol, Plaquenil, Prednisone [id number] 12/11/2015 12/11/2015 Prakash Reid MD Refill- Tramadol, Plaquenil, Prednisone [id number]-s1t7-5ng6-g927-[id number] 12/11/2015 12/11/2015 Prakash Reid MD Refill- Tramadol, Plaquenil, Prednisone [id number]-7n41-[id number] 12/11/2015 12/11/2015 Prakash Reid MD Refill- Tramadol, Plaquenil, Prednisone [id number]-984j-18o0-5785-v45p2js1t301 12/11/2015 12/11/2015 Prakash Reid MD Refill- Tramadol, Plaquenil, Prednisone 235lz24m-17vh-8l31-55bn-2g07anb1d5j4 12/11/2015 12/11/2015 Prakash Reid MD Refill- Tramadol, Plaquenil, Prednisone 6hm3pqql-0t20-046w-72sr-92s02sk409k0 12/11/2015 12/11/2015 Prakash Reid MD Refill- Tramadol, Plaquenil, Prednisone [id number]-r219-7z5hp6m3p162 12/11/2015 12/11/2015 Prakash Reid MD Refill- Tramadol, Plaquenil, Prednisone [id number]-albz-550c40fe581y 12/11/2015 12/11/2015 Prakash Reid MD Refill- Tramadol, Plaquenil, Prednisone [id number]-z56o-f2b27qc02juv 12/11/2015 12/11/2015 Prakash Reid MD Refill- Tramadol, Plaquenil, Prednisone [id number]-e0t0-y8808tma1t1a 12/11/2015 12/11/2015 Prakash Reid MD Refill- Tramadol, Plaquenil, Prednisone [id number]-y8aq-d6xva1cc354f 12/11/2015 12/11/2015 Prakash Reid MD Refill- Tramadol, Plaquenil, Prednisone [id number]-epf1-j23009f31wi5 12/11/2015 12/11/2015 Prakash Reid MD Refill- Tramadol, Plaquenil, Prednisone [id number]-27e85lwrp6y8 12/11/2015 12/11/2015 Prakash Reid MD 3 [facility] [id number] 12/12/2015 12/12/2015 Prakash Reid MD 3 [facility] [id number] 12/12/2015 12/12/2015 Prakash Reid MD 3 [facility] [id number] 12/12/2015 12/12/2015 Prakash Reid MD 3 [facility] [id number]-23v06lh27h93 12/12/2015 12/12/2015 Prakash Reid MD 3 [facility] [id number]-[id number] 12/12/2015 12/12/2015 Prakash Reid MD 3 [facility] 6vo580zc-[id number]-0uo5-64fwf21j61rg 12/12/2015 12/12/2015 Prakash Reid MD 3 [facility] [id number]-58th-[id number] 12/12/2015 12/12/2015 Prakash Reid MD 3 [facility] [id number]-mc97-232d-[id number] 12/12/2015 12/12/2015 Prakash Reid MD 3 [facility] [id number]-i7w0-o9f0qz31qy7t 12/12/2015 12/12/2015 Prakash Reid MD 3 [facility] [id number]-n442h28yt46g 12/12/2015 12/12/2015 Prakash Reid MD 3 [facility] [id number]-po6m-76o9s2213n06 12/12/2015 12/12/2015 Prakash Reid MD 3 [facility] [id number] 12/12/2015 12/12/2015 Prakash Reid MD 3 [facility] [id number]-w4t4-248x23nbv2lj 12/12/2015 12/12/2015 Prakash Reid MD 3 [facility] [id number] 12/12/2015 12/12/2015 Prakash Reid MD 3 [facility] [id number] 12/12/2015 12/12/2015 Prakash Reid MD 3 [facility] [id number] 12/12/2015 12/12/2015 Prakash Reid MD 3 [facility] [id number] 12/12/2015 12/12/2015 Prakash Reid MD 3 [facility] [id number] 12/12/2015 12/12/2015 Prakash Reid MD 3 [facility] [id number] 12/12/2015 12/12/2015 Prakash Reid MD rx refill [id number] 12/15/2015 12/15/2015 Prakash Reid MD rx refill [id number] 12/15/2015 12/15/2015 Prakash Reid MD rx refill [id number] 12/15/2015 12/15/2015 Prakash Reid MD rx refill [id number] 12/15/2015 12/15/2015 Prakash Reid MD rx refill [id number] 12/15/2015 12/15/2015 Prakash Reid MD rx refill [id number] 12/15/2015 12/15/2015 Prakash Reid MD rx refill [id number] 12/15/2015 12/15/2015 Prakash Reid MD rx refill [id number] 12/15/2015 12/15/2015 Prakash Reid MD rx refill [id number] 12/15/2015 12/15/2015 Prakash Reid MD rx refill [id number] 12/15/2015 12/15/2015 Prakash Reid MD rx refill [id number] 12/15/2015 12/15/2015 Prakash Reid MD rx refill [id number] 12/15/2015 12/15/2015 Prakash Reid MD rx refill [id number] 12/15/2015 12/15/2015 Prakash Reid MD rx refill [id number] 12/15/2015 12/15/2015 Prakash Reid MD rx refill [id number] 12/15/2015 12/15/2015 Prakash Reid MD rx refill [id number] 12/15/2015 12/15/2015 Prakash Reid MD rx refill [id number] 12/15/2015 12/15/2015 Prakash Reid MD rx refill [id number] 12/15/2015 12/15/2015 Prakash Reid MD rx refill [id number] 12/15/2015 12/15/2015 Prakash Reid MD rx refill [id number] 12/15/2015 12/15/2015 Prakash Reid MD 1 [facility] [id number] 01/12/2016 01/12/2016 Prakash Reid MD 1 [facility] [id number] 01/12/2016 01/12/2016 Prakash Reid MD 1 [facility] [id number] 01/12/2016 01/12/2016 Prakash Reid MD 1 [facility] [id number] 01/12/2016 01/12/2016 Prakash Reid MD 1 [facility] [id number] 01/12/2016 01/12/2016 Prakash Reid MD 1 [facility] [id number] 01/12/2016 01/12/2016 Prakash Reid MD 1 [facility] [id number] 01/12/2016 01/12/2016 Prakash Reid MD 1 [facility] FU [id number] 01/12/2016 01/12/2016 Prakash Reid MD 1 [facility] FU [id number] 01/12/2016 01/12/2016 Prakash Reid MD 1 [facility] [id number] 01/12/2016 01/12/2016 Prakash Reid MD 1 [facility] [id number] 01/12/2016 01/12/2016 Prakash Reid MD 1 [facility] [id number] 01/12/2016 01/12/2016 Prakash Reid MD 1 [facility] [id number] 01/12/2016 01/12/2016 Prakash Reid MD 1 [facility] [id number] 01/12/2016 01/12/2016 Prakash Reid MD 1 [facility] [id number] 01/12/2016 01/12/2016 Prakash Reid MD 1 [facility]U [id number] 01/12/2016 01/12/2016 Prakash Reid MD 1 [facility] [id number] 01/12/2016 01/12/2016 Prakash Reid MD [facility] [id number] 02/02/2016 02/02/2016 Prakash Reid MD MRI [id number] 02/02/2016 02/02/2016 Prakash Reid MD MRI [id number] 02/02/2016 02/02/2016 Prakash Reid MD MRI [id number] 02/02/2016 02/02/2016 Prakash Reid MD MRI [id number] 02/02/2016 02/02/2016 Prakash Reid MD MRI [id number] 02/02/2016 02/02/2016 Prakash Reid MD MRI [id number] 02/02/2016 02/02/2016 Prakash Reid MD MRI [id number] 02/02/2016 02/02/2016 Prakash Reid MD MRI [id number] 02/02/2016 02/02/2016 Prakash Reid MD MRI [id number] 02/02/2016 02/02/2016 Prakash Reid MD MRI [id number] 02/02/2016 02/02/2016 Prakash eRid MD MRI [id number] 02/02/2016 02/02/2016 Prakash Reid MD MRI [id number] 02/02/2016 02/02/2016 Prakash Reid MD MRI [id number] 02/02/2016 02/02/2016 Prakash Reid MD MRI [id number] 02/02/2016 02/02/2016 Prakash Reid MD MRI [id number] 02/02/2016 02/02/2016 Prakash Reid MD 1 [facility] [id number] 02/16/2016 02/16/2016 Prakash Reid MD 1 [facility] [id number] 02/16/2016 02/16/2016 Prakash Reid MD 1 [facility] [id number] 02/16/2016 02/16/2016 Prakash Reid MD 1 [facility] [id number] 02/16/2016 02/16/2016 Prakash Reid MD 1 [facility] [id number] 02/16/2016 02/16/2016 Prakash Reid MD 1 [facility] [id number] 02/16/2016 02/16/2016 Prakash Reid MD 1 [facility] [id number] 02/16/2016 02/16/2016 Prakash Reid MD 1 [facility] [id number] 02/16/2016 02/16/2016 Prakash Reid MD 1 [facility] [id number] 02/16/2016 02/16/2016 Prakash Reid MD 1 [facility] [id number] 02/16/2016 02/16/2016 Prakash Reid MD 1 [facility] [id number] 02/16/2016 02/16/2016 Prakash Reid MD 1 [facility] [id number] 02/16/2016 02/16/2016 Prakash Ried MD 1 [facility] [id number] 02/16/2016 02/16/2016 Prakash Reid MD 1 [facility] [id number] 02/16/2016 02/16/2016 Prakash Reid MD 1 [facility] [id number] 02/16/2016 02/16/2016 Prakash Reid MD 1mth follow up [id number] 03/19/2016 03/19/2016 Prakash Reid MD 1mth follow up [id number] 03/19/2016 03/19/2016 Prakash Reid MD 1mth follow up [id number] 03/19/2016 03/19/2016 Prakash Reid MD 1mth follow up [id number] 03/19/2016 03/19/2016 Prakash Reid MD 1mth follow up [id number] 03/19/2016 03/19/2016 Prakash Reid MD 1mth follow up [id number] 03/19/2016 03/19/2016 Prakash Reid MD 1mth follow up [id number] 03/19/2016 03/19/2016 Prakash Reid MD 1mth follow up [id number] 03/19/2016 03/19/2016 Prakash Reid MD 1mth follow up [id number] 03/19/2016 03/19/2016 Prakash Reid MD 1mth follow up [id number] 03/19/2016 03/19/2016 Prakash Reid MD 1mth follow up [id number] 03/19/2016 03/19/2016 Prakash Reid MD 1mth follow up [id number] 03/19/2016 03/19/2016 Prakash Reid MD 1mth follow up [id number] 03/19/2016 03/19/2016 Prakash Reid MD 1mth follow up [id number] 03/19/2016 03/19/2016 Prakash Reid MD 1 [facility] [id number] 04/15/2016 04/15/2016 Prakash Reid MD 1 [facility] F[facility] [id number] 04/15/2016 04/15/2016 Prakash Reid MD 1 [facility] F[facility] [id number] 04/15/2016 04/15/2016 Prakash Reid MD 1 [facility] [id number] 04/15/2016 04/15/2016 Prakash Reid MD 1 [facility] [id number] 04/15/2016 04/15/2016 Prakash Reid MD 1 [facility] F[facility] [id number] 04/15/2016 04/15/2016 Prakash Reid MD 1 [facility] FU [id number] 04/15/2016 04/15/2016 Prakash Reid MD 1 [facility] [id number] 04/15/2016 04/15/2016 Prakash Reid MD 1 [facility] [id number] 04/15/2016 04/15/2016 Prakash Reid MD 1 [facility] [id number] 04/15/2016 04/15/2016 Prakash Reid MD 1 [facility] [id number] 04/15/2016 04/15/2016 Prakash Reid MD Refill- Tramadol [id number] 05/05/2016 05/05/2016 Prakash Reid MD Refill- Tramadol [id number] 05/05/2016 05/05/2016 Prakash Reid MD Refill- Tramadol [id number] 05/05/2016 05/05/2016 Prakash Reid MD Refill- Tramadol [id number] 05/05/2016 05/05/2016 Prakash Reid MD Refill- Tramadol [id number] 05/05/2016 05/05/2016 Prakash Reid MD Refill- Tramadol [id number] 05/05/2016 05/05/2016 Prakash Reid MD Refill- Tramadol [id number] 05/05/2016 05/05/2016 Prakash Reid MD Refill- Tramadol [id number] 05/05/2016 05/05/2016 Prakash Reid MD Refill- Tramadol [id number] 05/05/2016 05/05/2016 Prakash Reid MD Refill- Tramadol [id number] 05/05/2016 05/05/2016 Prakash Reid MD Refill- Tramadol [id number] 05/05/2016 05/05/2016 Prakash Reid MD Refill- Tramadol [id number] 05/05/2016 05/05/2016 Prakash Reid MD Refill- Tramadol [id number] 05/05/2016 05/05/2016 Prakash Reid MD CLARIFICATION [id number] 05/14/2016 05/14/2016 Prakash Reid MD CLARIFICATION [id number] 05/14/2016 05/14/2016 Prakash Reid MD CLARIFICATION [id number] 05/14/2016 05/14/2016 Prakash Reid MD CLARIFICATION [id number] 05/14/2016 05/14/2016 Prakash Reid MD CLARIFICATION [id number] 05/14/2016 05/14/2016 Prakash Reid MD CLARIFICATION [id number] 05/14/2016 05/14/2016 Prakash Reid MD CLARIFICATION [id number] 05/14/2016 05/14/2016 Prakash Reid MD CLARIFICATION [id number] 05/14/2016 05/14/2016 Prakash Reid MD CLARIFICATION [id number] 05/14/2016 05/14/2016 Prakash Reid MD CLARIFICATION [id number] 05/14/2016 05/14/2016 Prakash Reid MD CLARIFICATION [id number] 05/14/2016 05/14/2016 Prakash Reid MD CLARIFICATION [id number] 05/14/2016 05/14/2016 Prakash Reid MD 1 [facility] [id number] 05/17/2016 05/17/2016 Prakash Reid MD 1 [facility] [id number] 05/17/2016 05/17/2016 Prakash Reid MD 1 [facility] [id number] 05/17/2016 05/17/2016 Prakash Reid MD 1 [facility] [id number] 05/17/2016 05/17/2016 Prakash Reid MD 1 [facility] [id number] 05/17/2016 05/17/2016 Prakash Reid MD 1 [facility] [id number] 05/17/2016 05/17/2016 Prakash Reid MD 1 [facility] [id number] 05/17/2016 05/17/2016 Prakash Reid MD 1 [facility] [id number] 05/17/2016 05/17/2016 Prakash Reid MD 1 [facility] [id number] 05/17/2016 05/17/2016 Prakash Reid MD 1 [facility] [id number] 05/17/2016 05/17/2016 Prakash Reid MD 1mth follow up [id number] 06/17/2016 06/17/2016 Prakash Reid MD 1mth follow up [id number] 06/17/2016 06/17/2016 Prakash Reid MD MRI [id number] 06/17/2016 06/17/2016 Prakash Reid MD MRI [id number] 06/17/2016 06/17/2016 Prakash Reid MD MRI [id number] 06/17/2016 06/17/2016 Prakash Reid MD 1mth follow up [id number] 06/17/2016 06/17/2016 Prakash Reid MD 1mth follow up [id number] 06/17/2016 06/17/2016 Prakash Reid MD 1mth follow up [id number] 06/17/2016 06/17/2016 Prakash Reid MD 1mth follow up [id number] 06/17/2016 06/17/2016 Prakash Reid MD 1mth follow up [id number] 06/17/2016 06/17/2016 Prakash Reid MD 1mth follow up [id number] 06/17/2016 06/17/2016 Prakash Reid MD MRI [id number] 06/17/2016 06/17/2016 Prakash Reid MD MRI [id number] 06/17/2016 06/17/2016 Prakash Reid MD MRI [id number] 06/17/2016 06/17/2016 Prakash Reid MD MRI [id number] 06/17/2016 06/17/2016 Prakash Reid MD [facility] [id number] 06/17/2016 06/17/2016 Prakash Reid MD [facility] [id number] 06/17/2016 06/17/2016 Prakash Reid MD 1 [facility] [id number] 07/19/2016 07/19/2016 Prakash Reid MD 1 [facility] [id number] 07/19/2016 07/19/2016 Prakash Reid MD 1 [facility] [id number] 07/19/2016 07/19/2016 Prakash Reid MD 1 [facility] [id number] 07/19/2016 07/19/2016 Prakash Reid MD 1 [facility] [id number] 07/19/2016 07/19/2016 Prakash Reid MD 1 [facility] [id number] 07/19/2016 07/19/2016 Prakash Reid MD 1 [facility] [id number] 07/19/2016 07/19/2016 Prakash Reid MD 1 [facility] [id number] 08/18/2016 08/18/2016 Prakash Reid MD 1 [facility] [id number] 08/18/2016 08/18/2016 Prakash Reid MD 1 [facility] [id number] 08/18/2016 08/18/2016 Prakash Reid MD 1 [facility] [id number] 08/18/2016 08/18/2016 Prakash Reid MD 1 [facility] [id number] 08/18/2016 08/18/2016 Prakash Reid MD 1 [facility] [id number] 08/18/2016 08/18/2016 Prakash Reid MD 1 [facility] [id number] 09/16/2016 09/16/2016 Prakash Reid MD 1 [facility] [id number] 09/16/2016 09/16/2016 Prakash Reid MD 1 [facility] [id number] 09/16/2016 09/16/2016 Prakash Reid MD 1 [facility] [id number] 09/16/2016 09/16/2016 Prakash Reid MD 1 [facility] [id number] 09/16/2016 09/16/2016 Prakash Reid MD 1 [facility] fu [id number] 10/15/2016 10/15/2016 Prakash Reid MD 1 [facility] fu [id number] 10/15/2016 10/15/2016 Prakash Reid MD 1 [facility] [id number] 10/15/2016 10/15/2016 Prakash Reid MD Records [id number] 10/15/2016 10/15/2016 Prakash Reid MD Records [id number] 10/15/2016 10/15/2016 Prakash Reid MD Records [id number] 10/15/2016 10/15/2016 Prakash Reid MD Records [id number] 10/15/2016 10/15/2016 Prakash Reid MD 1 [facility] [id number] 11/17/2016 11/17/2016 Prakash Reid MD 1 [facility] [id number] 11/17/2016 11/17/2016 Prakash Reid Procedures No Data Provided for This Section Assessment and Plan No Data Provided for This Section Plan of Care No Data Provided for This Section Social History Social History Date Source Social History ElementQualifiersDate Reported Alcohol Screening: . Points: 0 Nov 17, 2016 Tobacco Use: . Are you a:: never smoker Nov 17, 2016 Marital Status: . Nov 17, 2016 Caffeine: yes. frequency: , 1-5 Nov 17, 2016 Exercise: no. Nov 17, 2016 Alcohol: no. Nov 17, 2016 11/17/2016 Prakash Reid Family History No Data Provided for This Section Advance Directives No Data Provided for This Section Functional Status No Data Provided for This Section
--- OUTSIDE RECORDS SUMMARY | 2019-06-06 08:36 | XMS REPORT ---
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 Drug Allergy Sulfa itching Non Drug Allergy Problems Problem Type Condition Code Onset Dates Condition Status Problem Other assisted (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 Z79.899 Active Problem Sjogrens syndrome M35.00 Active Problem Rheumatoid arthritis without rheumatoid factor, multiple sites M06.09 Active Problem Neck mass R22.1 Active Problem Need for prophylactic vaccination and inoculation against influenza Z23 Active Problem Sialoadenitis K11.20 Active Problem Raynaud disease I73.00 Active Problem Lymphopenia D72.810 Active Problem Chronic prescription opiate use Z79.891 Active Problem Left elbow pain M25.522 Active Assessment Sjogrens syndrome M35.00 Active Assessment Other assisted (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 Z79.899 Active Assessment Rheumatoid arthritis without rheumatoid factor, multiple sites M06.09 Active Assessment Raynaud disease I73.00 Active Assessment Chronic prescription opiate use Z79.891 Active Problem Osteopenia M85.80 Active Medications Medication Code System Code Instructions Start Date End Date Status Dosage Hydrocodone-Acetaminophen ND 01046084669 10-325 MG Orally three times a day Active 1 tablet as needed Tramadol HCl ND 06844009189 50 MG Orally TID Active 1 tablet as needed Diclofenac Sodium ND 77117660728 1 % Transdermal 4 times daily to affected area prn Active apply topically Hydroxychloroquine Sulfate ND 27367576077 200 MG Orally Once a day Active 2 TABLETS WITH FOOD OR MILK Spironolactone ND 07921825674 25 MG Orally once a day Active 1 tablet PredniSONE ND 38781262957 5 MG Orally Once a day Active 2 tablets Calcium NDC 0 1000 mg orally daily Active one tab Multivitamins ND 63224223192 Orally Once a day Active 1 tablet Vitamin B12 [facility]NOTE 3] 50225912164 Sublingual Once a day Active as directed Omeprazole [facility][NOTE 3] 31921369335 20 MG Orally Once a day Active 1 capsule Vitamin C [facility]NOTE 3] 24982395676 1000 MG Orally Once a day Active 1 tablet Levoxyl [facility]NOTE 3] 01605544443 125 MCG Orally once a day Active 1 tablet of each Vitamin D (Ergocalciferol) [facility][NOTE 3] 69886817384 50,000 Orally once a week Active 1 capsule Folic Acid [facility]NOTE 3] 92665920102 1 MG Orally twice a day Active 2 tablets Vitamin D-3 [facility]NOTE 3] 73630552182 1000 UNIT Orally Once a day Active 1 capsule Advil [facility][NOTE 3] 73782396895 Orally as needed Active 1 tablet as needed Iron [facility]NOTE 3] [address]-22 65 MG Orally Once a day Active 1 tablet Dicyclomine HCl [facility]NOTE 3] 93304341213 10 MG Orally three times a day Active 1 capsule Zofran [facility][NOTE 3] 38773303438 8 MG Orally as needed Active as needed Vital Signs Date/Time: Nov 28, 2018 BMI 30.57 Index Weight 172.6 lbs Height 63 in Temperature 97.3 F Cardiac Monitoring Heart Rate 72 /min Blood Pressure Diastolic 64 mm Hg Blood Pressure Systolic 105 mm Hg Results No Known Results Summary Purpose eClinicalWorks Submission
--- OUTSIDE RECORDS SUMMARY | 2019-06-06 08:36 | XMS REPORT ---
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 Drug Allergy Sulfa itching Non Drug Allergy Problems Problem Type Condition Code Onset Dates Condition Status Assessment Other jail (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 Z79.899 Active Problem Osteopenia M85.80 Active Assessment Rheumatoid arthritis without rheumatoid factor, multiple sites M06.09 Active Assessment Acute bilateral low back pain without sciatica M54.5 Active Assessment Sjogrens syndrome M35.00 Active Problem Raynaud disease I73.00 Active Problem Left elbow pain M25.522 Active Problem Chronic prescription opiate use Z79.891 Active Problem Sjogrens syndrome M35.00 Active Problem Other intermediate project manager (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 Z79.899 Active Problem Lymphopenia D72.810 Active Problem Rheumatoid arthritis without rheumatoid factor, multiple sites M06.09 Active Medications Medication Code System Code Instructions Start Date End Date Status Dosage PredniSONE [facility] 55835816186 5 MG Orally Once a day Active 2 tablets Multivitamins [facility] [address]-29 Orally Once a day Active 1 tablet Vitamin C [facility] [address]-66 1000 MG Orally Once a day Active 1 tablet Dicyclomine HCl [facility] [address]-17 10 MG Orally three times a day Active 1 capsule Spironolactone [facility] [address]-72 25 MG Orally once a day Active 1 tablet Vitamin B12 [facility] [address]-62 Sublingual Once a day Active as directed Voltaren [facility] [address]-23 1 % Transdermal Four times a day as needed Active as directed Tramadol ND 0 50 mg orally 4 - 6 hours as needed Active one tab Iron [facility] [address]-85 65 MG Orally Once a day Active 1 tablet Vitamin D-3 [facility] 78425-34911 1000 UNIT Orally Once a day Active 1 capsule Vitamin D (Ergocalciferol) [facility] 92181141534 50,000 Active TAKE ONE CAPSULE BY MOUTH ONCE WEEKLY Hydrocodone-Acetaminophen [facility] [address]-81 10-325 MG Orally three times a day Active 1 tablet as needed Zofran [facility] [address]-21 8 MG Orally Active as needed Advil [facility] [address]-50 Orally as needed Active 1 tablet as needed Folic Acid [facility] 10725646805 1 MG twice a day Active 2 tablets Calcium [facility] 0 1000 mg orally daily Active one tab Levoxyl [facility] [address]-90 100mg/150mg once a day Active 1 tablet of each Vital Signs Date/Time: April 18, 2017 BMI 33.94 Index Weight 204 lbs Height 65 in Temperature 97.6 F Cardiac Monitoring Heart Rate 76 /min Blood Pressure Diastolic 72 mm Hg Blood Pressure Systolic 120 mm Hg Results No Known Results Summary Purpose eClinicalWorks Submission
--- OUTSIDE RECORDS SUMMARY | 2019-06-06 08:36 | XMS REPORT ---
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 representative (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 Z79.899 Active Assessment Rheumatoid arthritis without rheumatoid factor, multiple sites M06.09 Active Assessment Raynaud disease I73.00 Active Assessment Chronic prescription opiate use Z79.891 Active Problem Osteopenia M85.80 Active Medications Medication Code System Code Instructions Start Date End Date Status Dosage Multivitamins [facility] 06491548731 Orally Once a day Active 1 tablet Vitamin D-3 [facility] 03144905326 1000 UNIT Orally Once a day Active 1 capsule Levoxyl [facility] 97781548235 125 MCG Orally once a day Active 1 tablet of each Vitamin D (Ergocalciferol) [facility] 96581161049 50,000 Orally once a week Active 1 capsule Hydroxychloroquine Sulfate [facility] 34061739863 200 MG Orally Once a day Active 2 TABLETS WITH FOOD OR MILK Folic Acid ND 50740672793 1 MG Orally twice a day Active 2 tablets Omeprazole ND 83701633054 20 MG Orally Once a day Active 1 capsule Iron [facility] [address]-03 65 MG Orally Once a day Active 1 tablet PredniSONE [facility] 44277752989 5 MG Orally Once a day December 13, 2018 Active 2 tablets Vitamin B12 [facility] 47890434135 Sublingual Once a day Active as directed Spironolactone ND 14797899962 25 MG Orally once a day Active 1 tablet Vitamin C [facility] 68812191770 1000 MG Orally Once a day Active 1 tablet Diclofenac Sodium [facility] 89617782228 1 % Transdermal 4 times daily to affected area prn Active apply topically Tramadol HCl [facility] 78001191942 50 MG Orally TID Active 1 tablet as needed Advil [facility] 23873231948 Orally as needed Active 1 tablet as needed Hydrocodone-Acetaminophen [facility] 39645986872 10-325 MG Orally three times a day Active 1 tablet as needed Zofran [facility] 37997331254 8 MG Orally as needed Active as needed Dicyclomine HCl [facility] 86468339853 10 MG Orally three times a day Active 1 capsule Calcium NDC 0 1000 mg orally daily Active one tab Vital Signs Date/Time: December 26, 2018 BMI 29.55 Index Weight 172.2 lbs Height 64 in Temperature 97.0 F Cardiac Monitoring Heart Rate 72 /min Blood Pressure Diastolic 64 mm Hg Blood Pressure Systolic 108 mm Hg Results No Known Results Summary Purpose eClinicalWorks Submission
--- OUTSIDE RECORDS SUMMARY | 2019-06-06 08:36 | XMS REPORT ---
Author Author Eryn Hearn [facility] eClinicalWorks Address Unknown Phone Unavailable Care Team Providers Care Health Aid Name Role Phone Eryn Hearn Unavailable Allergies, Adverse Reactions, Alerts Substance Reaction Event Type Enbrel [employer] developed stomach cancer after initiation Drug Allergy Sulfa itching Non Drug Allergy Problems Problem Type Condition Code Onset Dates Condition Status Assessment Other care home (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 Z79.899 Active Problem Osteopenia M85.80 Active Assessment Rheumatoid arthritis without rheumatoid factor, multiple sites M06.09 Active Problem Raynaud disease I73.00 Active Problem Left elbow pain M25.522 Active Problem Chronic prescription opiate use Z79.891 Active Problem Sjogrens syndrome M35.00 Active Problem Other termite helper (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 Z79.899 Active Problem Lymphopenia D72.810 Active Problem Rheumatoid arthritis without rheumatoid factor, multiple sites M06.09 Active Medications Medication Code System Code Instructions Start Date End Date Status Dosage Vitamin B12 [facility] [address]-35 Sublingual Once a day Active as directed Iron [facility] [address]-48 65 MG Orally Once a day Active 1 tablet Advil [facility] [address]-82 Orally as needed Active 1 tablet as needed Tramadol ND 0 50 mg orally 4 - 6 hours as needed Active one tab Folic Acid [facility] 11452387811 1 twice a day Active 2 tablets Hydrocodone-Acetaminophen [facility] [address]-72 10-325 MG Orally three times a day Active 1 tablet as needed Levoxyl [facility] [address]-05 100mg/150mg once a day Active 1 tablet of each Plaquenil [facility] [address]-93 200 MG once a day Active 2 tablets Vitamin D (Ergocalciferol) [facility] 94968712277 50,000 once a week Active TAKE ONE CAPSULE BY MOUTH ONCE WEEKLY Vitamin D-3 [facility] [address]556 1000 UNIT Orally Once a day Active 1 capsule Zofran [facility] [address]-60 8 MG Orally Active as needed PredniSONE [facility] 48860028171 5 MG Orally Once a day Active 2 tablets Calcium ND 0 1000 mg orally daily Active one tab Spironolactone [facility] [address]-98 25 MG Orally once a day Active 1 tablet Voltaren [facility] [address]-15 1 % Transdermal Four times a day as needed Active as directed Multivitamins [facility] [address]-47 Orally Once a day Active 1 tablet Dicyclomine HCl [facility] [address]-17 10 MG Orally three times a day Active 1 capsule Vitamin C [facility] [address]-05 1000 MG Orally Once a day Active 1 tablet Vital Signs Date/Time: January 17, 2017 BMI 32.44 Index Weight 201 lbs Height 66 in Temperature 97.9 F Cardiac Monitoring Heart Rate 76 /min Blood Pressure Diastolic 70 mm Hg Blood Pressure Systolic 100 mm Hg Results No Known Results Summary Purpose eClinicalWorks Submission
--- OUTSIDE RECORDS SUMMARY | 2019-06-06 08:36 | XMS REPORT ---
Author Author Robert Reid Organization eClinicalWorks Address Unknown Phone Unavailable Care Team Providers Care Turn Down Worker Name Role Phone Robert Reid CP Unavailable Allergies No Known Allergies Problems Problem Type Condition Code Onset Dates Condition Status Problem Osteopenia M85.80 Active Problem Raynaud disease I73.00 Active Problem Left elbow pain M25.522 Active Problem Chronic prescription opiate use Z79.891 Active Problem Sjogrens syndrome M35.00 Active Problem Other equipment operator intermodal yard (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 Z79.899 Active Problem Lymphopenia D72.810 Active Problem Rheumatoid arthritis without rheumatoid factor, multiple sites M06.09 Active Medications No Known Medications Results No Known Results Summary Purpose eClinicalWorks Submission
--- OUTSIDE RECORDS SUMMARY | 2019-06-06 08:36 | XMS REPORT ---
Author Author Eryn Hearn [facility] eClinicalWorks Address Unknown Phone Unavailable Care Team Providers Care Paper Pattern Folder Name Role Phone Eryn Hearn Unavailable Allergies, Adverse Reactions, Alerts Substance Reaction Event Type Enmelia Chavez developed stomach cancer after initiation Drug Allergy Sulfa itching Non Drug Allergy Problems Problem Type Condition Code Onset Dates Condition Status Assessment Other shelter (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 Z79.899 Active Problem Osteopenia M85.80 Active Assessment Rheumatoid arthritis without rheumatoid factor, multiple sites M06.09 Active Problem Raynaud disease I73.00 Active Problem Left elbow pain M25.522 Active Problem Chronic prescription opiate use Z79.891 Active Problem Sjogrens syndrome M35.00 Active Problem Other quality facilitator (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 Z79.899 Active Problem Lymphopenia D72.810 Active Problem Rheumatoid arthritis without rheumatoid factor, multiple sites M06.09 Active Assessment physician office rep current use of opiate analgesic Z79.891 Active Assessment Osteopenia M85.80 Active Assessment Sjogrens syndrome M35.00 Active Medications Medication Code System Code Instructions Start Date End Date Status Dosage Plaquenil [facility] [address]-70 200 MG once a day Active 2 tablets Advil [facility] [address]-41 Orally as needed Active 1 tablet as needed Hydrocodone-Acetaminophen [facility] [address]-31 10-325 MG Orally three times a day Jun 20, 2017 Active 1 tablet as needed Hydroxychloroquine Sulfate [facility] [address]-68 200 MG Orally Once a day May 23, 2017 Active 2 TABLETS WITH FOOD OR MILK Levoxyl [facility] [address]-34 100mg/150mg once a day Active 1 tablet of each Multivitamins [facility] [address]-46 Orally Once a day Active 1 tablet Voltaren [facility] [address]-29 1 % Transdermal Four times a day as needed Active as directed Iron [facility] [address]-75 65 MG Orally Once a day Active 1 tablet Tramadol HCl NDC [address]-06 50 MG Orally 3 times a day May 23, 2017 Active 1 tablet Vitamin D-3 [facility] 18744-28545 1000 UNIT Orally Once a day Active 1 capsule Zofran [facility] [address]-04 8 MG Orally as needed Active as needed Folic Acid [facility] 40475204531 1 MG twice a day Active 2 tablets Dicyclomine HCl [facility] [address]-36 10 MG Orally three times a day Active 1 capsule Tramadol NDC 0 50 mg orally 4 - 6 hours as needed Active one tab Vitamin C [facility] [address]-83 1000 MG Orally Once a day Active 1 tablet Calcium NDC 0 1000 mg orally daily Active one tab Spironolactone [facility] [address]-22 25 MG Orally once a day Active 1 tablet Vitamin D (Ergocalciferol) [facility] 94379536503 50,000 Active TAKE ONE CAPSULE BY MOUTH ONCE WEEKLY PredniSONE [facility] [address]-33 5 MG Orally Once a day May 23, 2017 Active 2 TABLETS with food or milk Vitamin B12 [facility] [address]-55 Sublingual Once a day Active as directed Vital Signs Date/Time: Jun 20, 2017 BMI 32.15 Index Weight 199.2 lbs Height 66 in Temperature 97.4 F Cardiac Monitoring Heart Rate 70 /min Blood Pressure Diastolic 76 mm Hg Blood Pressure Systolic 120 mm Hg Results No Known Results Summary Purpose eClinicalWorks Submission
--- OUTSIDE RECORDS SUMMARY | 2019-06-06 08:36 | XMS REPORT ---
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 Drug Allergy Sulfa itching Non Drug Allergy Problems Problem Type Condition Code Onset Dates Condition Status Problem Other longterm (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 Z79.899 Active Problem Sjogrens syndrome M35.00 Active Problem Rheumatoid arthritis without rheumatoid factor, multiple sites M06.09 Active Problem Neck mass R22.1 Active Problem Need for prophylactic vaccination and inoculation against influenza Z23 Active Problem Sialoadenitis K11.20 Active Problem Raynaud disease I73.00 Active Problem Lymphopenia D72.810 Active Problem Chronic prescription opiate use Z79.891 Active Problem Left elbow pain M25.522 Active Assessment Neck mass R22.1 Active Assessment Sjogrens syndrome M35.00 Active Assessment Need for prophylactic vaccination and inoculation against influenza Z23 Active Assessment Rheumatoid arthritis without rheumatoid factor, multiple sites M06.09 Active Assessment Other longterm (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 Z79.899 Active Problem Osteopenia M85.80 Active Medications Medication Code System Code Instructions Start Date End Date Status Dosage Tramadol NDC 0 50 mg orally 4 - 6 hours as needed Active one tab Zofran [place] 28824162035 8 MG Orally as needed Active as needed Vitamin D (Ergocalciferol) [place] 23321695049 73067 UNIT Orally once a week Active 1 capsule Voltaren [facility] 88732409100 1 % Transdermal Four times a day as needed Active as directed Iron [facility] [address]-88 65 MG Orally Once a day Active 1 tablet Hydrocodone-Acetaminophen ND 60609700375 10-325 MG Orally three times a day Jun 20, 2017 Active 1 tablet as needed Levoxyl [facility] [address]-17 100mg/150mg once a day Active 1 tablet of each Calcium NDC 0 1000 mg orally daily Active one tab Folic Acid [facility] 38908627789 1 MG Orally twice a day Active 2 tablets PredniSONE ND 68191874240 5 MG Orally Once a day Active 2 TABLETS with food or milk Plaquenil [facility] 08486013664 200 MG Orally once a day Active 2 tablets Dicyclomine HCl [facility] 47883838254 10 MG Orally three times a day Active 1 capsule Multivitamins [facility] 61497809506 Orally Once a day Active 1 tablet Vitamin C [facility] 37880004315 1000 MG Orally Once a day Active 1 tablet Vitamin B12 [facility] 16854655387 Sublingual Once a day Active as directed Spironolactone [facility] 99990343695 25 MG Orally once a day Active 1 tablet Vitamin D-3 [facility] 07852403521 1000 UNIT Orally Once a day Active 1 capsule Advil [facility] 35623380874 Orally as needed Active 1 tablet as needed Vital Signs Date/Time: Aug 18, 2017 BMI 34.48 Index Weight 200.9 lbs Height 64 in Temperature 98.1 F Cardiac Monitoring Heart Rate 80 /min Blood Pressure Diastolic 60 mm Hg Blood Pressure Systolic 110 mm Hg Results No Known Results Immunizations Vaccine Administration Date Flu Vaccine Aug 18, 2017 Summary Purpose eClinicalWorks Submission
--- OUTSIDE RECORDS SUMMARY | 2019-06-06 08:36 | XMS REPORT ---
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 Drug Allergy Sulfa itching Non Drug Allergy Problems Problem Type Condition Code Onset Dates Condition Status Assessment Sjogrens syndrome M35.00 Active Problem Osteopenia M85.80 Active Assessment Rheumatoid arthritis without rheumatoid factor, multiple sites M06.09 Active Assessment Osteopenia M85.80 Active Problem Raynaud disease I73.00 Active Problem Left elbow pain M25.522 Active Problem Chronic prescription opiate use Z79.891 Active Problem Sjogrens syndrome M35.00 Active Problem Other terminal computer operator (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 Z79.899 Active Problem Lymphopenia D72.810 Active Problem Rheumatoid arthritis without rheumatoid factor, multiple sites M06.09 Active Medications Medication Code System Code Instructions Start Date End Date Status Dosage Multivitamins [facility] [address]-43 Orally Once a day Active 1 tablet Calcium NDC 0 1000 mg orally daily Active one tab Voltaren [facility] [address]-29 1 % Transdermal Four times a day as needed Active as directed Levoxyl [facility] [address]-96 100mg/150mg once a day Active 1 tablet of each Vitamin D (Ergocalciferol) [facility] 31489266062 50,000 once a week Active TAKE ONE CAPSULE BY MOUTH ONCE WEEKLY Advil [facility] [address]-91 Orally as needed Active 1 tablet as needed Vitamin B12 [facility] [address]-53 Sublingual Once a day Active as directed Vitamin C [facility] [address]-56 1000 MG Orally Once a day Active 1 tablet Tramadol NDC 0 50 mg orally 4 - 6 hours as needed Active one tab Iron [facility] [address]-00 65 MG Orally Once a day Active [address] [facility] [address]-69 10 MG Orally three times a day Active [address] [facility] [address]-98 200 MG once a day Active 2 tablets Hydrocodone-Acetaminophen [facility] [address]-27 10-325 MG Orally three times a day Jun 16, 2017 Active 1 tablet as needed Vitamin D-3 [facility] 39079-[address]66 1000 UNIT Orally Once a day Active [address] [facility] [address]-53 25 MG Orally once a day Active [address] [facility] 54786980827 1 MG twice a day Active [address] [facility] 09375906246 5 MG Orally Once a day Active [address] [facility] [address]-44 8 MG Orally as needed Active as needed Vital Signs Date/Time: May 17, 2017 BMI 32.90 Index Weight 197.7 lbs Height 65 in Temperature 97.5 F Cardiac Monitoring Heart Rate 70 /min Blood Pressure Diastolic 70 mm Hg Blood Pressure Systolic 110 mm Hg Results No Known Results Summary Purpose eClinicalWorks Submission
--- OUTSIDE RECORDS SUMMARY | 2019-06-06 08:36 | XMS REPORT ---
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 Drug Allergy Sulfa itching Non Drug Allergy Problems Problem Type Condition Code Onset Dates Condition Status Assessment Other detention (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 Z79.899 Active Problem Osteopenia M85.80 Active Assessment Rheumatoid arthritis without rheumatoid factor, multiple sites M06.09 Active Assessment Sjogrens syndrome M35.00 Active Problem Raynaud disease I73.00 Active Problem Left elbow pain M25.522 Active Problem Chronic prescription opiate use Z79.891 Active Problem Sjogrens syndrome M35.00 Active Problem Other detention (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 Z79.899 Active Problem Lymphopenia D72.810 Active Problem Rheumatoid arthritis without rheumatoid factor, multiple sites M06.09 Active Medications Medication Code System Code Instructions Start Date End Date Status Dosage Voltaren [facility] [address]-16 1 % Transdermal Four times a day as needed Active as directed Spironolactone [facility] [address]-85 25 MG Orally once a day Active 1 tablet Folic Acid [facility] 76011068846 1 MG twice a day Active 2 tablets Dicyclomine HCl [facility] [address]-64 10 MG Orally three times a day Active 1 capsule Hydrocodone-Acetaminophen [facility] [address]-14 10-325 MG Orally three times a day Active 1 tablet as needed Vitamin D (Ergocalciferol) [facility] 11630196135 50,000 Active TAKE ONE CAPSULE BY MOUTH ONCE WEEKLY Vitamin D-3 [facility] 54894-34477 1000 UNIT Orally Once a day Active 1 capsule PredniSONE [facility] 29773666496 5 MG Orally Once a day Active 2 tablets Calcium ND 0 1000 mg orally daily Active one tab Multivitamins [facility] [address]-78 Orally Once a day Active 1 tablet Zofran [facility] [address]-36 8 MG Orally Active as needed Advil [facility] [address]-83 Orally as needed Active 1 tablet as needed Plaquenil [facility] [address]-67 200 MG once a day Active 2 tablets Iron [facility] [address]-79 65 MG Orally Once a day Active 1 tablet Vitamin B12 [facility] [address]-20 Sublingual Once a day Active as directed Tramadol ND 0 50 mg orally 4 - 6 hours as needed Active one tab Vitamin C [facility] [address]-62 1000 MG Orally Once a day Active 1 tablet Levoxyl [facility] [address]-53 100mg/150mg once a day Active 1 tablet of each Vital Signs Date/Time: March 17, 2017 BMI 33.59 Index Weight 201.9 lbs Height 65 in Temperature 98.4 F Cardiac Monitoring Heart Rate 72 /min Blood Pressure Diastolic 70 mm Hg Blood Pressure Systolic 112 mm Hg Results No Known Results Summary Purpose eClinicalWorks Submission
--- OUTSIDE RECORDS SUMMARY | 2019-06-06 08:36 | XMS REPORT ---
Author Author Robert Reid Organization eClinicalWorks Address Unknown Phone Unavailable Care Team Providers Care Innersole Maker Name Role Phone Robert Reid CP Unavailable Allergies No Known Allergies Problems Problem Type Condition Code Onset Dates Condition Status Problem Osteopenia M85.80 Active Problem Sjogrens syndrome M35.00 Active Problem Chronic prescription opiate use Z79.891 Active Problem Left elbow pain M25.522 Active Problem Sialoadenitis K11.20 Active Problem Rheumatoid arthritis without rheumatoid factor, multiple sites M06.09 Active Problem Other skilled nursing (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 Z79.899 Active Problem Raynaud disease I73.00 Active Problem Lymphopenia D72.810 Active Medications No Known Medications Results No Known Results Summary Purpose eClinicalWorks Submission
--- OUTSIDE RECORDS SUMMARY | 2019-06-06 08:36 | XMS REPORT ---
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 Drug Allergy Sulfa itching Non Drug Allergy Problems Problem Type Condition Code Onset Dates Condition Status Assessment Sjogrens syndrome M35.00 Active Problem Osteopenia M85.80 Active Assessment Rheumatoid arthritis without rheumatoid factor, multiple sites M06.09 Active Assessment Chronic prescription opiate use Z79.891 Active Assessment Raynaud disease I73.00 Active Problem Raynaud disease I73.00 Active Problem Left elbow pain M25.522 Active Problem Chronic prescription opiate use Z79.891 Active Problem Sjogrens syndrome M35.00 Active Problem Other skilled nursing (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 Z79.899 Active Problem Lymphopenia D72.810 Active Problem Rheumatoid arthritis without rheumatoid factor, multiple sites M06.09 Active Medications Medication Code System Code Instructions Start Date End Date Status Dosage Spironolactone [facility] [address]-06 25 MG Orally once a day Active 1 tablet Tramadol NDC 0 50 mg orally 4 - 6 hours as needed Active one tab PredniSONE ND 78930275408 5 MG Orally Once a day Active 2 tablets Dicyclomine HCl [facility] [address]-72 10 MG Orally three times a day Active 1 capsule Plaquenil [facility] [address]-34 200 MG once a day Active 2 tablets Hydrocodone-Acetaminophen [facility] [address]-97 10-325 MG Orally three times a day Active 1 tablet as needed Vitamin C [facility] [address]-27 1000 MG Orally Once a day Active 1 tablet Calcium NDC 0 1000 mg orally daily Active one tab Folic Acid ND 17087185149 1 twice a day Active 2 tablets Iron [facility] [address]-91 65 MG Orally Once a day Active 1 tablet Levoxyl [facility] [address]-93 100mg/150mg once a day Active 1 tablet of each Advil [facility] [address]-05 Orally as needed Active 1 tablet as needed Voltaren [facility] [address]-88 1 % Transdermal Four times a day as needed Active as directed Multivitamins [facility] [address]-84 Orally Once a day Active 1 tablet Vitamin D (Ergocalciferol) [facility] 18052739304 50,000 once a week Active TAKE ONE CAPSULE BY MOUTH ONCE WEEKLY Vitamin D-3 [facility] 39357-29438 1000 UNIT Orally Once a day Active 1 capsule Zofran [facility] [address]-04 8 MG Orally Active as needed Vitamin B12 [facility] [address]-03 Sublingual Once a day Active as directed Vital Signs Date/Time: February 14, 2017 BMI 32.44 Index Weight 201 lbs Height 66 in Temperature 98.1 F Cardiac Monitoring Heart Rate 80 /min Blood Pressure Diastolic 70 mm Hg Blood Pressure Systolic 120 mm Hg Results No Known Results Summary Purpose eClinicalWorks Submission
--- OUTSIDE RECORDS SUMMARY | 2019-06-06 08:36 | XMS REPORT ---
Author Author Robert Reid Organization eClinicalWorks Address Unknown Phone Unavailable Care Team Providers Care Kitchen Mechanic Name Role Phone Robert Reid CP Unavailable Allergies No Known Allergies Problems Problem Type Condition Code Onset Dates Condition Status Problem Other watermelon inspector (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 Z79.899 Active Problem Sjogrens syndrome M35.00 Active Problem Rheumatoid arthritis without rheumatoid factor, multiple sites M06.09 Active Problem Osteopenia M85.80 Active Problem Neck mass R22.1 Active Problem Need for prophylactic vaccination and inoculation against influenza Z23 Active Problem Sialoadenitis K11.20 Active Problem Raynaud disease I73.00 Active Problem Lymphopenia D72.810 Active Problem Chronic prescription opiate use Z79.891 Active Problem Left elbow pain M25.522 Active Medications No Known Medications Results No Known Results Summary Purpose eClinicalWorks Submission
--- OUTSIDE RECORDS SUMMARY | 2019-06-06 08:36 | XMS REPORT ---
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 Drug Allergy Sulfa itching Non Drug Allergy Problems Problem Type Condition Code Onset Dates Condition Status Assessment Other residential (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 Z79.899 Active Problem Osteopenia M85.80 Active Assessment Rheumatoid arthritis without rheumatoid factor, multiple sites M06.09 Active Problem Raynaud disease I73.00 Active Problem Left elbow pain M25.522 Active Problem Chronic prescription opiate use Z79.891 Active Problem Sjogrens syndrome M35.00 Active Problem Other intermission coordinator (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 Z79.899 Active Problem Lymphopenia D72.810 Active Problem Rheumatoid arthritis without rheumatoid factor, multiple sites M06.09 Active Medications Medication Code System Code Instructions Start Date End Date Status Dosage Voltaren [facility] [address]-05 1 % Transdermal Four times a day as needed Active as directed Vitamin C [facility] [address]-73 1000 MG Orally Once a day Active 1 tablet PredniSONE [facility] 19406754982 5 MG Orally Once a day Active take 2 tablets by mouth once a day with food Levoxyl [facility] [address]-87 100mg/150mg once a day Active 1 tablet of each Folic Acid [facility] 77878664493 1 Active TAKE TWO TABLETS BY MOUTH TWICE A DAY Vitamin B12 [facility] [address]-72 Sublingual Once a day Active as directed Spironolactone [facility] [address]-10 25 MG Orally once a day Active 1 tablet Calcium NDC 0 1000 mg orally daily Active one tab Multivitamins [facility] [address]-96 Orally Once a day Active 1 tablet Iron [facility] [address]-94 65 MG Orally Once a day Active 1 tablet Dicyclomine HCl [facility] [address]-41 10 MG Orally three times a day Active 1 capsule Plaquenil [facility] [address]-06 200 MG Active TAKE 2 TABLETS WITH FOOD OR MILK ONCE A DAY Vitamin D (Ergocalciferol) [facility] 23905595570 50,000 Active TAKE ONE CAPSULE BY MOUTH ONCE WEEKLY Zofran [facility] [address]-36 8 MG Orally Active as needed Hydrocodone-Acetaminophen [facility] [address]-38 10-325 MG Orally three times a day Active 1 tablet as needed Advil [facility] [address]-90 Orally as needed Active 1 tablet as needed Tramadol ND 0 50 mg orally 4 - 6 hours as needed Active one tab Vitamin D-3 [facility] 7[address]06-313[address] 1000 UNIT Orally Once a day Active 1 capsule Vital Signs Date/Time: December 15, 2016 BMI 31.79 Index Weight 197 lbs Height 66 in Temperature 97.7 F Cardiac Monitoring Heart Rate 70 /min Blood Pressure Diastolic 70 mm Hg Blood Pressure Systolic 108 mm Hg Results No Known Results Summary Purpose eClinicalWorks Submission
--- OUTSIDE RECORDS SUMMARY | 2019-06-06 08:36 | XMS REPORT ---
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 Drug Allergy Sulfa itching Non Drug Allergy Problems Problem Type Condition Code Onset Dates Condition Status Assessment Rheumatoid arthritis without rheumatoid factor, multiple sites M06.09 Active Problem Other skilled nursing (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 Z79.899 Active Problem Osteopenia M85.80 Active Problem Chronic prescription opiate use Z79.891 Active Problem Raynaud disease I73.00 Active Problem Sialoadenitis K11.20 Active Problem Rheumatoid arthritis without rheumatoid factor, multiple sites M06.09 Active Problem Sjogrens syndrome M35.00 Active Problem Left elbow pain M25.522 Active Problem Lymphopenia D72.810 Active Assessment Abnormal ultrasound of neck R93.8 Active Assessment Mass in neck R22.1 Active Assessment Sialoadenitis K11.20 Active Assessment Other technician terminal and repeater (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 Z79.899 Active Assessment Sjogrens syndrome M35.00 Active Medications Medication Code System Code Instructions Start Date End Date Status Dosage Vitamin D (Ergocalciferol) [facility] [place] 35469866900 50,000 once a week Active TAKE ONE CAPSULE BY MOUTH ONCE WEEKLY Clindamycin HCl [facility] [place] [address]-16 300 MG Orally every 8 hrs Jul 20, 2017 Jul 27, 2017 Active 1 capsule Voltaren [facility] [place] [address]-06 1 % Transdermal Four times a day as needed Active as directed Zofran [facility] [place] [address]-27 8 MG Orally as needed Active as needed PredniSONE [facility] [place] [address]-32 5 MG Orally Once a day May 23, 2017 Oct 18, 2017 Active 2 TABLETS with food or milk Vitamin B12 [facility] [place] [address]-17 Sublingual Once a day Active as directed Multivitamins [facility] [place] [address]-49 Orally Once a day Active 1 tablet Advil NDC [address]-96 Orally as needed Active 1 tablet as needed Levoxyl [facility] [place] [address]-70 100mg/150mg once a day Active 1 tablet of each Iron [facility] [place] [address]-18 65 MG Orally Once a day Active 1 tablet Vitamin D-3 [facility] [place] [address] 1000 UNIT Orally Once a day Active 1 capsule Plaquenil [facility] [place] [address]-08 200 MG Orally once a day Oct 18, 2017 Active 2 tablets Calcium NDC 0 1000 mg orally daily Active one tab Folic Acid [facility] [place] 11965016148 1 MG twice a day Active 2 tablets Tramadol NDC 0 50 mg orally 4 - 6 hours as needed Oct 18, 2017 Active one tab Dicyclomine HCl [facility] [place] [address]-81 10 MG Orally three times a day Active 1 capsule Vitamin C [facility] [place] [address]-89 1000 MG Orally Once a day Active 1 tablet Hydrocodone-Acetaminophen [facility] [place] [address]-00 10-325 MG Orally three times a day Jun 20, 2017 Aug 19, 2017 Active 1 tablet as needed Spironolactone [facility] [place] [address]-35 25 MG Orally once a day Active 1 tablet Vital Signs Date/Time: Jul 20, 2017 BMI 32.87 Index Weight 203.7 lbs Height 66 in Temperature 97.3 F Cardiac Monitoring Heart Rate 76 /min Blood Pressure Diastolic 70 mm Hg Blood Pressure Systolic 118 mm Hg Results No Known Results Summary Purpose eClinicalWorks Submission
--- OUTSIDE RECORDS SUMMARY | 2019-06-06 08:36 | XMS REPORT ---
Author Author Eryn Hearn Organization eClinicalWorks Address Unknown Phone Unavailable Care Team Providers Care Flamer Sealer Name Role Phone Eryn Hearn Unavailable Allergies No Known Allergies Problems Problem Type Condition Code Onset Dates Condition Status Problem Other half-way (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 Z79.899 Active Problem Sjogrens [...] Problem Left elbow pain M25.522 Active Medications Medication Code System Code Instructions Start Date End Date Status Dosage PredniSONE [facility] 10887082970 5 MG Orally Once a day March 13, 2019 Active 2 tablets Results No Known Results Summary Purpose eClinicalWorks Submission
--- OUTSIDE RECORDS SUMMARY | 2019-06-06 08:36 | XMS REPORT ---
Author Author Robert Reid Organization eClinicalWorks Address Unknown Phone Unavailable Care Team Providers Care Production Operations Manager Name Role Phone Robert Reid CP Unavailable Allergies No Known Allergies Problems Problem Type Condition Code Onset Dates Condition Status Problem Osteopenia M85.80 Active Problem Raynaud disease I73.00 Active Problem Left elbow pain M25.522 Active Problem Chronic prescription opiate use Z79.891 Active Problem Sjogrens syndrome M35.00 Active Problem Other terminal system operator (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 Z79.899 Active Problem Lymphopenia D72.810 Active Problem Rheumatoid arthritis without rheumatoid factor, multiple sites M06.09 Active Medications Medication Code System Code Instructions Start Date End Date Status Dosage PredniSONE [facility] [address]-81 5 MG Orally Once a day May 23, 2017 Active 2 TABLETS with food or milk Tramadol HCl [facility] [address]-29 50 MG Orally 3 times a day May 23, 2017 Active 1 tablet Hydroxychloroquine Sulfate [facility] [address]-97 200 MG Orally Once a day May 23, 2017 Active 2 TABLETS WITH FOOD OR MILK Results No Known Results Summary Purpose eClinicalWorks Submission
--- OUTSIDE RECORDS SUMMARY | 2019-06-06 08:37 | XMS REPORT ---
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 Drug Allergy Sulfa itching Non Drug Allergy Problems Problem Type Condition Code Onset Dates Condition Status Problem Other [facility] (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 Z79.899 Active Problem Sjogrens syndrome M35.00 Active Problem Rheumatoid arthritis without rheumatoid factor, multiple sites M06.09 Active Problem Neck mass R22.1 Active Problem Need for prophylactic vaccination and inoculation against influenza Z23 Active Problem Sialoadenitis K11.20 Active Problem Raynaud disease I73.00 Active Problem Lymphopenia D72.810 Active Problem Chronic prescription opiate use Z79.891 Active Problem Left elbow pain M25.522 Active Assessment [facility] (current) use of opiate analgesic Z79.891 Active Assessment Other [facility] (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 Z79.899 Active Assessment Rheumatoid arthritis without rheumatoid factor, multiple sites M06.09 Active Assessment Sjogrens syndrome M35.00 Active Problem Osteopenia M85.80 Active Medications Medication Code System Code Instructions Start Date End Date Status Dosage Vitamin D (Ergocalciferol) [facility] 14198670886 33186 UNIT Orally once a week Active 1 capsule Calcium NDC 0 1000 mg orally daily Active one tab Zofran ND 71430491485 8 MG Orally as needed Active as needed Spironolactone ND 26073510009 25 MG Orally once a day Active 1 tablet Vitamin D-3 ND 04345342971 1000 UNIT Orally Once a day Active 1 capsule Advil ND 53653454190 Orally as needed Active 1 tablet as needed Iron [facility] [address]-92 65 MG Orally Once a day Active 1 tablet Levoxyl [facility] [address]-68 100mg/150mg once a day Active 1 tablet of each PredniSONE ND 09693685889 5 MG Active TAKE 2 TABLETS BY MOUTH WITH FOOD OR MILK ONCE A DAY Plaquenil [facility] 98110189892 200 MG Active TAKE 2 TABLETS BY MOUTH ONCE A DAY Multivitamins [facility] 00622990116 Orally Once a day Active 1 tablet Hydrocodone-Acetaminophen [facility] 77017791979 10-325 MG Orally three times a day Active 1 tablet as needed Voltaren [facility] 13731409262 1 % Transdermal Four times a day as needed Active as directed Dicyclomine HCl [facility] 62304581388 10 MG Orally three times a day Active 1 capsule Folic Acid [facility] 13964724547 1 MG Orally twice a day Active 2 tablets Vitamin B12 [facility] 00076759613 Sublingual Once a day Active as directed Vitamin C [facility] 72219486890 1000 MG Orally Once a day Active 1 tablet Vital Signs Date/Time: February 23, 2018 BMI 34.17 Index Weight 196 lbs Height 63.5 in Temperature 97.3 F Cardiac Monitoring Heart Rate 68 /min Blood Pressure Diastolic 72 mm Hg Blood Pressure Systolic 116 mm Hg Results Name Result Date Reference Range Unit Abnormality Flag Prescription Drug Monitoring Summary Purpose eClinicalWorks Submission
--- OUTSIDE RECORDS SUMMARY | 2019-06-06 08:37 | XMS REPORT ---
Author Author Eryn Hearn Organization eClinicalWorks Address Unknown Phone Unavailable Care Team Providers Care Roads Supervisor Name Role Phone Eryn Hearn Unavailable Allergies [...] Start Date End Date Status Dosage PredniSONE [facility] 46546977395 5 MG Orally Once a day December 13, 2018 Active 2 tablets Results No Known Results Summary Purpose eClinicalWorks Submission
--- OUTSIDE RECORDS SUMMARY | 2019-06-06 08:37 | XMS REPORT ---
Author Author Eryn Hearn [facility] eClinicalWorks Address Unknown Phone Unavailable Care Team Providers Care Bundle Helper Name Role Phone Eryn Hearn Unavailable Allergies, [...] Problem Left elbow pain M25.522 Active Assessment [facility] (current) use of opiate analgesic Z79.891 Active Assessment Other skilled nursing (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 Z79.899 Active Assessment Rheumatoid arthritis without rheumatoid factor, multiple sites M06.09 Active Assessment Sjogrens syndrome M35.00 Active Problem Osteopenia M85.80 Active Medications Medication Code System Code Instructions Start Date End Date Status Dosage Folic Acid ND 49306458153 1 MG Orally twice a day Active 2 tablets Tramadol HCl ND 60312985026 50 MG Orally TID Active 1 tablet as needed Vitamin D-3 ND 16053480778 1000 UNIT Orally Once a day Active 1 capsule Hydrocodone-Acetaminophen ND 42298045838 10-325 MG Orally three times a day Active 1 tablet as needed Vitamin C ND 33878912072 1000 MG Orally Once a day Active 1 tablet Zofran ND 91155725975 8 MG Orally as needed Active as needed Vitamin B12 ND 77224251645 Sublingual Once a day Active as directed PredniSONE ND 06347197259 5 MG Active TAKE 2 TABLETS BY MOUTH WITH FOOD OR MILK ONCE A DAY Spironolactone ND 62405326976 25 MG Orally once a day Active 1 tablet Levoxyl [facility] [address]-47 100mg/150mg once a day Active 1 tablet of each Iron [facility] [address]-62 65 MG Orally Once a day Active 1 tablet Advil [facility] 39319032675 Orally as needed Active 1 tablet as needed Calcium ND 0 1000 mg orally daily Active one tab Diclofenac Sodium [facility] 85132903645 1 % Transdermal 4 times daily to affected area prn Active apply topically Plaquenil [facility] 57210126419 200 MG Active TAKE 2 TABLETS BY MOUTH ONCE A DAY Vitamin D (Ergocalciferol) [facility] 45880602308 74713 UNIT Orally once a week Active 1 capsule Multivitamins [facility] 04276750978 Orally Once a day Active 1 tablet Dicyclomine HCl [facility] 88182100238 10 MG Orally three times a day Active 1 capsule Vital Signs Date/Time: March 24, 2018 BMI 34.40 Index Weight 197.3 lbs Height 63.5 in Temperature 97.5 F Cardiac Monitoring Heart Rate 70 /min Blood Pressure Diastolic 70 mm Hg Blood Pressure Systolic 102 mm Hg Results No Known Results Summary Purpose eClinicalWorks Submission
--- OUTSIDE RECORDS SUMMARY | 2019-06-06 08:37 | XMS REPORT ---
Author Author Eryn Hearn [facility] eClinicalWorks Address Unknown Phone Unavailable Care Team Providers Care Bike Assembler Name Role Phone Eryn Hearn Unavailable Allergies, Adverse Reactions, Alerts Substance Reaction Event Type Enbrel SureClick developed stomach cancer after initiation Drug Allergy Sulfa itching Non Drug Allergy Problems Problem Type Condition Code Onset Dates Condition Status Problem Other [facility] (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 Z79.899 Active Problem Sjogrens syndrome M35.00 Active Problem Rheumatoid arthritis without rheumatoid factor, multiple sites M06.09 Active Problem Neck mass R22.1 Active Problem Need for prophylactic vaccination and inoculation against influenza Z23 Active Problem Sialoadenitis K11.20 Active Problem Raynaud disease I73.00 Active Problem Lymphopenia D72.810 Active Problem Chronic prescription opiate use Z79.891 Active Problem Left elbow pain M25.522 Active Assessment 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 termite helper (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 Z79.899 Active Assessment Chronic prescription opiate use Z79.891 Active Assessment Rheumatoid arthritis without rheumatoid factor, multiple sites M06.09 Active Assessment Sjogrens syndrome M35.00 Active Assessment Raynaud disease I73.00 Active Problem Osteopenia M85.80 Active Medications Medication Code System Code Instructions Start Date End Date Status Dosage Iron [facility] [address]-18 65 MG Orally Once a day Active 1 tablet Tramadol HCl ND 06519599282 50 MG Orally TID Active 1 tablet as needed Vitamin D (Ergocalciferol) ND 62895856752 50,000 Orally once a week Active 1 capsule Advil ND 41434327396 Orally as needed Active 1 tablet as needed Multivitamins ND 57346586362 Orally Once a day Active 1 tablet Hydroxychloroquine Sulfate ND 90781595184 200 MG Orally Once a day Active 2 TABLETS WITH FOOD OR MILK Levoxyl ND 32640707451 125 MCG Orally once a day Active 1 tablet of each Calcium ND 0 1000 mg orally daily Active one tab Vitamin B12 ND 86490692045 Sublingual Once a day Active as directed Zofran [facility] 64997392495 8 MG Orally as needed Active as needed Vitamin D-3 ND 41096182881 1000 UNIT Orally Once a day Active 1 capsule Folic Acid [facility] 53799637334 1 MG Orally twice a day Active 2 tablets PredniSONE ND 98283740722 5 MG Orally Once a day Active 2 tablets Vitamin C [facility] 68922293145 1000 MG Orally Once a day Active 1 tablet Hydrocodone-Acetaminophen [facility] 57080278842 10-325 MG Orally three times a day Active 1 tablet as needed Dicyclomine HCl [facility] 15552566102 10 MG Orally three times a day Active 1 capsule Diclofenac Sodium [facility] 89439278047 1 % Transdermal 4 times daily to affected area prn Active apply topically Spironolactone [facility] 40119118668 25 MG Orally once a day Active 1 tablet Vital Signs Date/Time: Oct 23, 2018 BMI 32.18 Index Weight 181.7 lbs Height 63 in Temperature 98.1 F Cardiac Monitoring Heart Rate 70 /min Blood Pressure Diastolic 68 mm Hg Blood Pressure Systolic 110 mm Hg Results No Known Results Summary Purpose eClinicalWorks Submission
--- OUTSIDE RECORDS SUMMARY | 2019-06-06 08:37 | XMS REPORT ---
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
--- OUTSIDE RECORDS SUMMARY | 2019-06-06 08:37 | XMS REPORT ---
Author Author Robert Reid Organization eClinicalWorks Address Unknown Phone Unavailable Care Team Providers Care Technology Professional Name Role Phone Robert Reid CP Unavailable Allergies No Known Allergies Problems Problem Type Condition Code Onset Dates Condition Status Problem Other long term care administrator (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 Z79.899 Active Problem Sjogrens [...]
--- OUTSIDE RECORDS SUMMARY | 2019-06-06 08:37 | XMS REPORT ---
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 Drug Allergy Sulfa itching Non Drug Allergy Problems Problem Type Condition Code Onset Dates Condition Status Problem Other [facility] (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 Z79.899 Active Problem Sjogrens syndrome M35.00 Active Problem Rheumatoid arthritis without rheumatoid factor, multiple sites M06.09 Active Problem Neck mass R22.1 Active Problem Need for prophylactic vaccination and inoculation against influenza Z23 Active Problem Sialoadenitis K11.20 Active Problem Raynaud disease I73.00 Active Problem Lymphopenia D72.810 Active Problem Chronic prescription opiate use Z79.891 Active Problem Left elbow pain M25.522 Active Assessment Osteopenia M85.80 Active Assessment Other [facility] (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 Z79.899 Active Assessment Rheumatoid arthritis without rheumatoid factor, multiple sites M06.09 Active Problem Osteopenia M85.80 Active Medications Medication Code System Code Instructions Start Date End Date Status Dosage PredniSONE ND 06272043535 5 MG Active TAKE 2 TABLETS BY MOUTH WITH FOOD OR MILK ONCE A DAY Vitamin D-3 ND 43082307852 1000 UNIT Orally Once a day Active 1 capsule Multivitamins ND 27595744180 Orally Once a day Active 1 tablet Advil ND 09837514213 Orally as needed Active 1 tablet as needed Levoxyl [facility] [address]-06 100mg/150mg once a day Active 1 tablet of each Vitamin D (Ergocalciferol) ND 00838267896 16041 UNIT Orally once a week Active 1 capsule Spironolactone ND 41922373499 25 MG Orally once a day Active 1 tablet Folic Acid ND 68417953811 1 MG Orally twice a day Active 2 tablets Vitamin B12 ND 10575606946 Sublingual Once a day Active as directed Hydrocodone-Acetaminophen [facility] 10183819970 10-325 MG Orally three times a day Active 1 tablet as needed Plaquenil [facility] 87769088463 200 MG Active TAKE 2 TABLETS BY MOUTH ONCE A DAY Dicyclomine HCl [facility] 70338798934 10 MG Orally three times a day Active 1 capsule Iron [facility] [address]-02 65 MG Orally Once a day Active 1 tablet Vitamin C [facility] 09018845845 1000 MG Orally Once a day Active 1 tablet Calcium NDC 0 1000 mg orally daily Active one tab Zofran [facility] 62114960116 8 MG Orally as needed Active as needed Tramadol NDC 0 50 mg orally 4 - 6 hours as needed February 22, 2018 Active one tab Voltaren [facility] 45814257409 1 % Transdermal Four times a day as needed Active as directed Vital Signs Date/Time: January 16, 2018 BMI 32.61 Index Weight 196 lbs Height 65 in Temperature 97.1 F Cardiac Monitoring Heart Rate 76 /min Blood Pressure Diastolic 74 mm Hg Blood Pressure Systolic 118 mm Hg Results Name Result Date Reference Range Unit Abnormality Flag SED RATE BY MODIFIED WESTERGREN ----Sedimentation Rate-Westergren 2 [id number] 0-40 mm/hr C-REACTIVE PROTEIN ----C-Reactive Protein, Quant 1.3 [id number] 0.0-4.9 mg/L COMPREHENSIVE METABOLIC PANEL W/EGFR ----Bilirubin, Total 0.5 20180116 0.0-1.2 mg/dL ----A/G Ratio 1.3 [id number] 1.2-2.2 ----AST (SGOT) 30 [id number] 0-40 IU/L ----Alkaline Phosphatase 137 70436723 39-117 IU/L H ----Carbon Dioxide, Total 27 95902238 18-29 mmol/L ----Chloride 102 [id number] 96-106 mmol/L ----ALT (SGPT) 23 20180116 0-32 IU/L ----Potassium 5.1 82108544 3.5-5.2 mmol/L ----Sodium 141 06929970 134-144 mmol/L ----BUN/Creatinine Ratio 12 20180116 9-23 ----Protein, Total 6.3 75493933 6.0-8.5 g/dL ----Calcium 9.2 58846488 8.7-10.2 mg/dL ----Globulin, Total 2.8 [id number] 1.5-4.5 g/dL ----Albumin 3.5 [id number] 3.5-5.5 g/dL ----Glucose 107 51201420 65-99 mg/dL H ----BUN 8 [id number] 6-24 mg/dL ----Creatinine 0.69 82204894 0.57-1.00 mg/dL ----eGFR If NonAfricn Am 99 [id number] >59 mL/min/1.73 CBC (INCLUDES DIFF/PLT) ----MCHC 33.2 46013365 31.5-35.7 g/dL ----MCH 32.5 [id number] 26.6-33.0 pg ----Platelets 168 [id number] 150-379 x10E3/uL ----RDW 14.1 90651087 12.3-15.4 % ----Immature Granulocytes 0 [id number] Not Estab. % ----Immature Grans (Abs) 0.0 [id number] 0.0-0.1 x10E3/uL ----Lymphs 11 [id number] Not Estab. % ----Monocytes 5 [id number] Not Estab. % ----Neutrophils 84 [id number] Not Estab. % ----Neutrophils (Absolute) 4.0 97457913 1.4-7.0 x10E3/uL ----Hematocrit 41.0 63374466 34.0-46.6 % ----Lymphs (Absolute) 0.5 [id number] 0.7-3.1 x10E3/uL L ----MCV 98 [id number] 79-97 fL H ----RBC 4.18 30952258 3.77-5.28 x10E6/uL ----Eos 0 [id number] Not Estab. % ----Basos 0 [id number] Not Estab. % ----Hemoglobin 13.6 [id number] 11.1-15.9 g/dL ----Baso (Absolute) 0.0 [id number] 0.0-0.2 x10E3/uL ----WBC 4.8 [id number] 3.4-10.8 x10E3/uL ----Monocytes(Absolute) 0.3 [id number] 0.1-0.9 x10E3/uL ----Eos (Absolute) 0.0 [id number] 0.0-0.4 x10E3/uL Summary Purpose eClinicalWorks Submission
--- OUTSIDE RECORDS SUMMARY | 2019-06-06 08:37 | XMS REPORT ---
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 Active Assessment Sjogrens syndrome M35.00 Active Assessment Rheumatoid arthritis without rheumatoid factor, multiple sites M06.09 Active Assessment Osteopenia M85.80 Active Problem Osteopenia M85.80 Active Medications Medication Code System Code Instructions Start Date End Date Status Dosage Folic Acid [facility] 73984495544 1 MG Orally twice a day Active 2 tablets Dicyclomine HCl ND 58446331918 10 MG Orally three times a day Active 1 capsule Tramadol ND 0 50 mg orally 4 - 6 hours as needed Active one tab Advil ND 56838420430 Orally as needed Active 1 tablet as needed Levoxyl [facility] [address]-02 100mg/150mg once a day Active 1 tablet of each Spironolactone ND 36185135398 25 MG Orally once a day Active 1 tablet Multivitamins ND 32386482710 Orally Once a day Active 1 tablet Hydrocodone-Acetaminophen [facility] 89891325507 10-325 MG Orally three times a day Jun 20, 2017 Oct 19, 2017 Active 1 tablet as needed Plaquenil ND 94595738959 200 MG Orally once a day Active 2 tablets Vitamin C [facility] 40628006800 1000 MG Orally Once a day Active 1 tablet PredniSONE [facility] 19310212187 5 MG Orally Once a day Active 2 TABLETS with food or milk Iron [facility] [address]-00 65 MG Orally Once a day Active 1 tablet Zofran [facility] 06404085422 8 MG Orally as needed Active as needed Voltaren [facility] 63989362338 1 % Transdermal Four times a day as needed Active as directed Vitamin D-3 [facility] 01867782764 1000 UNIT Orally Once a day Active 1 capsule Vitamin D (Ergocalciferol) [facility] 03811106292 84624 UNIT Orally once a week Active 1 capsule Vitamin B12 [facility] 71591099517 Sublingual Once a day Active as directed Calcium ND 0 1000 mg orally daily Active one tab Vital Signs Date/Time: Sep 19, 2017 BMI 33.47 Index Weight 195.0 lbs Height 64 in Temperature 98.2 F Cardiac Monitoring Heart Rate 80 /min Blood Pressure Diastolic 74 mm Hg Blood Pressure Systolic 102 mm Hg Results No Known Results Summary Purpose eClinicalWorks Submission
--- OUTSIDE RECORDS SUMMARY | 2019-06-06 08:37 | XMS REPORT ---
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 Drug Allergy Sulfa itching Non Drug Allergy Problems Problem Type Condition Code Onset Dates Condition Status Problem Other snf (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 Z79.899 Active Problem Sjogrens syndrome M35.00 Active Problem Rheumatoid arthritis without rheumatoid factor, multiple sites M06.09 Active Problem Neck mass R22.1 Active Problem Need for prophylactic vaccination and inoculation against influenza Z23 Active Problem Sialoadenitis K11.20 Active Problem Raynaud disease I73.00 Active Problem Lymphopenia D72.810 Active Problem Chronic prescription opiate use Z79.891 Active Problem Left elbow pain M25.522 Active Assessment Thoracic back pain M54.6 Active Assessment Other snf (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 Z79.899 Active Assessment Sjogrens syndrome M35.00 Active Assessment Lumbar back pain M54.5 Active Assessment Rheumatoid arthritis without rheumatoid factor, multiple sites M06.09 Active 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.891 Active Problem Osteopenia M85.80 Active Medications Medication Code System Code Instructions Start Date End Date Status Dosage Hydrocodone-Acetaminophen ND 15965216163 10-325 MG Orally three times a day Active 1 tablet as needed Cyclobenzaprine HCl ND 01484990731 10 MG Orally Three times a day December 15, 2017 December 30, 2017 Active 1 tablet as needed Multivitamins ND 75876747227 Orally Once a day Active 1 tablet Vitamin B12 ND 16425219631 Sublingual Once a day Active as directed Diabetic Siltussin-DM ND 51114334061 100-10 MG/5ML Orally every 4 hrs Active 10 [place] [address]-04 65 MG Orally Once a day Active 1 tablet Advil ND 47697824045 Orally as needed Active 1 tablet as needed Vitamin D-3 ND 13995141746 1000 UNIT Orally Once a day Active 1 capsule Calcium NDC 0 1000 mg orally daily Active one tab Tramadol NDC 0 50 mg orally 4 - 6 hours as needed February 22, 2018 Active one tab PredniSONE ND 44377324979 5 MG Active TAKE 2 TABLETS BY MOUTH WITH FOOD OR MILK ONCE A DAY Dicyclomine HCl [facility] 62282745762 10 MG Orally three times a day Active 1 capsule Zofran [facility] 08038085354 8 MG Orally as needed Active as needed Voltaren [facility] 88090693632 1 % Transdermal Four times a day as needed Active as directed Vitamin C [facility] 22336082919 1000 MG Orally Once a day Active 1 tablet Levoxyl [facility] [address]-82 100mg/150mg once a day Active 1 tablet of each Spironolactone [facility] 64064210004 25 MG Orally once a day Active 1 tablet Vitamin D (Ergocalciferol) [facility] 79395280215 41985 UNIT Orally once a week Active 1 capsule Folic Acid [facility] 95100867173 1 MG Orally twice a day Active 2 tablets Plaquenil [facility] 12063309331 200 MG Active TAKE 2 TABLETS BY MOUTH ONCE A DAY Vital Signs Date/Time: December 15, 2017 BMI 34.09 Index Weight 198.6 lbs Height 64 in Temperature 97.4 F Cardiac Monitoring Heart Rate 78 /min Blood Pressure Diastolic 70 mm Hg Blood Pressure Systolic 110 mm Hg Results No Known Results Summary Purpose eClinicalWorks Submission
--- OUTSIDE RECORDS SUMMARY | 2019-06-06 08:37 | XMS REPORT ---
Author Author Cristhian Lagos [facility] eClinicalWorks Address Unknown Phone Unavailable Care Team Providers Care Paint Supervisor Name Role Phone Cristhian Lagos CP Unavailable Allergies No Known Allergies Problems Problem Type Condition Code Onset Dates Condition Status Problem Other [facility] (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 Z79.899 Active Problem Sjogrens [...] Start Date End Date Status Dosage PredniSONE [facility] 96391667109 5 MG Orally Once a day December 13, 2018 Active 2 tablets Hydroxychloroquine Sulfate ND 50234349684 200 MG Orally Once a day December 13, 2018 Active 2 TABLETS WITH FOOD OR MILK Tramadol HCl ND 76323810156 50 MG Orally 3 times a day December 13, 2018 Active 1 tablet Results No Known Results Summary Purpose eClinicalWorks Submission
--- OUTSIDE RECORDS SUMMARY | 2019-06-06 08:37 | XMS REPORT ---
Author Author Eryn Hearn [facility] eClinicalWorks Address Unknown Phone Unavailable Care Team Providers Care Claim Processing Specialist Name Role Phone Eryn Hearn Unavailable Allergies No Known Allergies Problems Problem Type Condition Code Onset Dates Condition Status Problem Other long-term (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 Z79.899 Active Problem Sjogrens [...] Start Date End Date Status Dosage Plaquenil [facility] 10026685074 200 MG Orally once a day December 20, 2018 Active 2 tablets Folic Acid [facility] 41202664871 1 MG Orally twice a day December 20, 2018 Active 2 tablets Results No Known Results Summary Purpose eClinicalWorks Submission
--- OUTSIDE RECORDS SUMMARY | 2019-06-06 08:37 | XMS REPORT ---
Author Author Robert Reid [facility] eClinicalWorks Address Unknown Phone Unavailable Care Team Providers Care Natural Gas Engineer Name Role Phone Robert Reid CP Unavailable [...] Problem Left elbow pain M25.522 Active Assessment Chronic prescription opiate use Z79.891 Active Assessment Other skilled nursing (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 Z79.899 Active Assessment Raynaud disease I73.00 Active Assessment Rheumatoid arthritis without rheumatoid factor, multiple sites M06.09 Active Assessment Upper respiratory disease J39.9 Active Assessment Sjogrens syndrome M35.00 Active Problem Osteopenia M85.80 Active Medications Medication Code System Code Instructions Start Date End Date Status Dosage Folic Acid [facility] 73809876563 1 MG Orally twice a day Active 2 tablets Levoxyl [facility] 46239708757 125 MCG Orally once a day Active 1 tablet of each Dicyclomine HCl ND 94605677081 10 MG Orally three times a day Active 1 [address]ox[address] [facility] 06172088055 500 MG Orally every 8 hrs Sep 25, 2018 Oct 05, 2018 Active 1 capsule Vitamin C [facility] 18975208637 1000 MG Orally Once a day Active 1 tablet PredniSONE ND 10006675714 5 MG Orally Once a day Active 2 tablets Hydrocodone-Acetaminophen [facility] 56888519716 10-325 MG Orally three times a day Active 1 tablet as needed Diclofenac Sodium [facility] 95928794429 1 % Transdermal 4 times daily to affected area prn Active apply topically Vitamin D (Ergocalciferol) [facility] 61678988948 50,000 Orally once a week Active 1 capsule Calcium NDC 0 1000 mg orally daily Active one tab Advil ND 44624463222 Orally as needed Active 1 tablet as needed Spironolactone ND 09100513529 25 MG Orally once a day Active 1 tablet Tramadol HCl [facility] 24811551875 50 MG Orally TID Active 1 tablet as needed Multivitamins [facility] 34171547404 Orally Once a day Active 1 tablet Vitamin D-3 ND 00553996057 1000 UNIT Orally Once a day Active 1 capsule Vitamin B12 [facility] 47937967857 Sublingual Once a day Active as directed Iron [facility] [address]-27 65 MG Orally Once a day Active [address]fran [facility] 62784088359 8 MG Orally as needed Active as needed Hydroxychloroquine Sulfate ND 40271498062 200 MG Orally Once a day Active 2 TABLETS WITH FOOD OR MILK Vital Signs Date/Time: Sep 25, 2018 BMI 31.81 Index Weight 179.6 lbs Height 63 in Temperature 98.7 F Cardiac Monitoring Heart Rate 73 /min Blood Pressure Diastolic 70 mm Hg Blood Pressure Systolic 110 mm Hg Results No Known Results Summary Purpose eClinicalWorks Submission
--- OUTSIDE RECORDS SUMMARY | 2019-06-06 08:37 | XMS REPORT ---
Author Author Robert Reid Organization eClinicalWorks Address Unknown Phone Unavailable Care Team Providers Care Medical Record Specialist Name Role Phone Robert Reid CP Unavailable Allergies No Known Allergies Problems Problem Type Condition Code Onset Dates Condition Status Problem Other training and development assistant (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 Z79.899 Active Problem Sjogrens [...]
--- OUTSIDE RECORDS SUMMARY | 2019-06-06 08:37 | XMS REPORT ---
Author Author Eryn Hearn [facility] eClinicalWorks Address Unknown Phone Unavailable Care Team Providers Care [employer] Certified Internetwork Expert Name Role Phone Eryn Hearn Unavailable Allergies, Adverse Reactions, Alerts Substance Reaction Event Type Enbrel SureDuncan developed stomach cancer after initiation Drug Allergy [...] Problem Left elbow pain M25.522 Active Assessment Need for prophylactic vaccination and inoculation against influenza Z23 Active Assessment Other [facility] (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 Z79.899 Active Assessment Rheumatoid arthritis without rheumatoid factor, multiple sites M06.09 Active Assessment Other abnormal glucose R73.09 Active Assessment Chronic prescription opiate use Z79.891 Active Problem Osteopenia M85.80 Active Medications Medication Code System Code Instructions Start Date End Date Status Dosage PredniSONE [facility] 74838989468 5 MG Orally Once a day Active 2 tablets Vitamin B12 [facility] 97369644071 Sublingual Once a day Active as directed Vitamin D-3 ND 86950453785 1000 UNIT Orally Once a day Active 1 capsule Tramadol HCl ND 12510690297 50 MG Orally TID Active 1 tablet as needed Spironolactone ND 72144888896 25 MG Orally once a day Active 1 tablet Zofran ND 27936632013 8 MG Orally as needed Active as needed Vitamin D (Ergocalciferol) [facility] 52323327014 50,000 Orally once a week Active 1 capsule Levoxyl [facility] [address]-21 100mg/150mg once a day Active 1 tablet of each Iron [facility] [address]-86 65 MG Orally Once a day Active 1 tablet Multivitamins ND 51323388037 Orally Once a day Active 1 tablet Folic Acid ND 51114979576 1 MG Orally twice a day Active 2 tablets Vitamin C ND 05329211679 1000 MG Orally Once a day Active 1 tablet Advil ND 60866010065 Orally as needed Active 1 tablet as needed Diclofenac Sodium [facility] 82635311807 1 % Transdermal 4 times daily to affected area prn Active apply topically Hydrocodone-Acetaminophen [facility] 17863540664 10-325 MG Orally three times a day Active 1 tablet as needed Hydroxychloroquine Sulfate ND 01594214075 200 MG Orally Once a day Active 2 TABLETS WITH FOOD OR MILK Calcium NDC 0 1000 mg orally daily Active one tab Dicyclomine HCl [facility] 71895879046 10 MG Orally three times a day Active 1 capsule Vital Signs Date/Time: Aug 24, 2018 BMI 31.21 Index Weight 184.7 lbs Height 64.5 in Temperature 97.1 F Cardiac Monitoring Heart Rate 74 /min Blood Pressure Diastolic 80 mm Hg Blood Pressure Systolic 122 mm Hg Results No Known Results Immunizations Vaccine Administration Date Flu Vaccine Aug 24, 2018 Summary Purpose eClinicalWorks Submission
--- OUTSIDE RECORDS SUMMARY | 2019-06-06 08:37 | XMS REPORT ---
Author Author Eryn Hearn [facility] eClinicalWorks Address Unknown Phone Unavailable Care Team Providers Care Four Roll Calender Operator Name Role Phone Eryn Hearn Unavailable Allergies, Adverse Reactions, Alerts Substance Reaction Event Type Enmelia Chavez developed stomach cancer after initiation Drug Allergy Sulfa itching Non Drug Allergy Problems Problem Type Condition Code Onset Dates Condition Status Problem Other [facility] (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 Z79.899 Active Problem Sjogrens [...] prescription opiate use Z79.891 Active Assessment Other termite exterminator (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 Z79.899 Active Assessment Rheumatoid arthritis without rheumatoid factor, multiple sites M06.09 Active Problem Osteopenia M85.80 Active Medications Medication Code System Code Instructions Start Date End Date Status Dosage Calcium NDC 0 1000 mg orally daily Active one tab Folic Acid ND 26854094665 1 MG Orally twice a day Active 2 tablets Vitamin D-3 ND 62722966814 1000 UNIT Orally Once a day Active 1 capsule Spironolactone ND 03035804569 25 MG Orally once a day Active 1 tablet Vitamin D (Ergocalciferol) [facility] 04870550855 50,000 Active TAKE ONE CAPSULE BY MOUTH ONCE WEEKLY Zofran ND 12500471237 8 MG Orally as needed Active as needed Multivitamins ND 99100648466 Orally Once a day Active 1 tablet Dicyclomine HCl ND 64877310817 10 MG Orally three times a day Active 1 capsule Levoxyl [facility] [address]-20 100mg/150mg once a day Active 1 tablet of each Advil ND 72874449343 Orally as needed Active 1 tablet as needed Hydrocodone-Acetaminophen ND 65088675295 10-325 MG Orally three times a day Active 1 tablet as needed Diclofenac Sodium [facility] 89824109678 1 % Transdermal 4 times daily to affected area prn Active apply topically Tramadol HCl ND 96361011134 50 MG Orally TID Active 1 tablet as needed PredniSONE ND 90122973024 5 MG Active TAKE 2 TABLETS BY MOUTH WITH FOOD OR MILK ONCE A DAY Iron [facility] [address]-60 65 MG Orally Once a day Active 1 tablet Hydroxychloroquine Sulfate [facility] 75993499545 200 MG Orally Once a day April 13, 2018 Active 2 TABLETS WITH FOOD OR MILK Vitamin B12 [facility] 67627309347 Sublingual Once a day Active as directed Vitamin C [facility] 34767850393 1000 MG Orally Once a day Active 1 tablet Vital Signs Date/Time: May 23, 2018 BMI 34.56 Index Weight 198.2 lbs Height 63.5 in Temperature 97.9 F Cardiac Monitoring Heart Rate 76 /min Blood Pressure Diastolic 68 mm Hg Blood Pressure Systolic 142 mm Hg Results No Known Results Summary Purpose eClinicalWorks Submission
--- OUTSIDE RECORDS SUMMARY | 2019-06-06 08:37 | XMS REPORT ---
Author Author Eryn Hearn [facility] eClinicalWorks Address Unknown Phone Unavailable Care Team Providers Care Fish Hatchery Manager Name Role Phone Eryn Hearn Unavailable Allergies, Adverse Reactions, Alerts Substance Reaction Event Type Enbretianna SureDuncan developed stomach cancer after initiation Drug [...] Left elbow pain M25.522 Active Assessment Other long distance operator (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 Z79.899 Active Assessment Sjogrens syndrome M35.00 Active Assessment electrical appliance servicer (current) use of opiate analgesic Z79.891 Active Assessment Rheumatoid arthritis without rheumatoid factor, multiple sites M06.09 Active Assessment Osteopenia M85.80 Active Problem Osteopenia M85.80 Active Medications Medication Code System Code Instructions Start Date End Date Status Dosage Advil ND 47623608674 Orally as needed Active 1 tablet as needed PredniSONE ND 85848468138 5 MG Orally Once a day Active 2 TABLETS with food or milk Iron [facility] [address]-70 65 MG Orally Once a day Active 1 tablet Vitamin B12 ND 00621437863 Sublingual Once a day Active as directed Tramadol ND 0 50 mg orally 4 - 6 hours as needed Active one tab Levoxyl [facility] [address]-12 100mg/150mg once a day Active 1 tablet of each Plaquenil ND 55892567924 200 MG Orally once a day Active 2 tablets Multivitamins ND 03271336402 Orally Once a day Active 1 tablet Dicyclomine HCl [facility] 19401011599 10 MG Orally three times a day Active 1 capsule Folic Acid [facility] 76331447291 1 MG Orally twice a day Active 2 tablets Vitamin D (Ergocalciferol) [facility] 14152173355 86273 UNIT Orally once a week Active 1 capsule Spironolactone [facility] 90555770097 25 MG Orally once a day Active 1 tablet Vitamin D-3 [facility] 29314069199 1000 UNIT Orally Once a day Active 1 capsule Hydrocodone-Acetaminophen [facility] 65920690503 10-325 MG Orally three times a day Jun 20, 2017 Oct 19, 2017 Active 1 tablet as needed Zofran [facility] 80915093278 8 MG Orally as needed Active as needed Voltaren [facility] 33666626620 1 % Transdermal Four times a day as needed Active as directed Vitamin C [facility] 15506605173 1000 MG Orally Once a day Active 1 tablet Calcium NDC 0 1000 mg orally daily Active one tab Vital Signs Date/Time: Oct 18, 2017 BMI 34.24 Index Weight 199.5 lbs Height 64 in Temperature 97.6 F Cardiac Monitoring Heart Rate 82 /min Blood Pressure Diastolic 68 mm Hg Blood Pressure Systolic 100 mm Hg Results Name Result Date Reference Range Unit Abnormality Flag SED RATE BY MODIFIED WESTERGREN ----Sedimentation Rate-Westergren 3 [id number] 0-40 mm/hr CBC (INCLUDES DIFF/PLT) ----Basos 0 [id number] Not Estab. % ----MCV 99 [id number] 79-97 fL H ----Hematocrit 40.2 [id number] 34.0-46.6 % ----Eos 0 [id number] Not Estab. % ----MCHC 32.3 84023475 31.5-35.7 g/dL ----Monocytes 4 [id number] Not Estab. % ----MCH 31.9 [id number] 26.6-33.0 pg ----Lymphs 15 [id number] Not Estab. % ----Eos (Absolute) 0.0 [id number] 0.0-0.4 x10E3/uL ----WBC 4.7 [id number] 3.4-10.8 x10E3/uL ----Monocytes(Absolute) 0.2 [id number] 0.1-0.9 x10E3/uL ----Lymphs (Absolute) 0.7 [id number] 0.7-3.1 x10E3/uL ----Hemoglobin 13.0 [id number] 11.1-15.9 g/dL ----Neutrophils (Absolute) 3.7 [id number] 1.4-7.0 x10E3/uL ----RBC 4.07 [id number] 3.77-5.28 x10E6/uL ----Immature Grans (Abs) 0.0 [id number] 0.0-0.1 x10E3/uL ----Immature Granulocytes 0 [id number] Not Estab. % ----Neutrophils 81 [id number] Not Estab. % ----Baso (Absolute) 0.0 [id number] 0.0-0.2 x10E3/uL ----RDW 13.3 [id number] 12.3-15.4 % ----Platelets 155 [id number] 150-379 x10E3/uL Prescription Drug Monitoring C-REACTIVE PROTEIN ----C-Reactive Protein, Quant 1.2 [id number] 0.0-4.9 mg/L COMPREHENSIVE METABOLIC PANEL W/EGFR ----Chloride, Serum 103 [id number] 96-106 mmol/L ----Potassium, Serum 4.5 13115056 3.5-5.2 mmol/L ----Sodium, Serum 142 78564978 134-144 mmol/L ----BUN/Creatinine Ratio 17 [id number] 9-23 ----eGFR If NonAfricn Am 105 [id number] >59 mL/min/1.73 ----Creatinine, Serum 0.59 [id number] 0.57-1.00 mg/dL ----BUN 10 [id number] 6-24 mg/dL ----Glucose, Serum 96 [id number] 65-99 mg/dL ----ALT (SGPT) 20 [id number] 0-32 IU/L ----A/G Ratio 1.2 [id number] 1.2-2.2 ----Bilirubin, Total 0.5 [id number] 0.0-1.2 mg/dL ----Alkaline Phosphatase, S 112 [id number] 39-117 IU/L ----AST (SGOT) 31 [id number] 0-40 IU/L ----Calcium, Serum 9.1 [id number] 8.7-10.2 mg/dL ----Protein, Total, Serum 6.2 [id number] 6.0-8.5 g/dL ----Albumin, Serum 3.4 [id number] 3.5-5.5 g/dL L ----Globulin, Total 2.8 [id number] 1.5-4.5 g/dL ----Carbon Dioxide, Total 26 [id number] 18-29 mmol/L Summary Purpose eClinicalWorks Submission
--- OUTSIDE RECORDS SUMMARY | 2019-06-06 08:37 | XMS REPORT ---
Author Author Eryn Hearn [facility] eClinicalWorks Address Unknown Phone Unavailable Care Team Providers Care Manufacturing Sales Representative Name Role Phone Eryn Hearn Unavailable Allergies, [...] Left elbow pain M25.522 Active Assessment Other intermodal truck driver (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 Z79.899 Active Assessment Sjogrens syndrome M35.00 Active Assessment extermination supervisor (current) use of opiate analgesic Z79.891 Active Assessment Rheumatoid arthritis without rheumatoid factor, multiple sites M06.09 Active Assessment Osteopenia M85.80 Active Problem Osteopenia M85.80 Active Medications Medication Code System Code Instructions Start Date End Date Status Dosage Vitamin D-3 [facility] 83012917160 1000 UNIT Orally Once a day Active 1 capsule PredniSONE ND 14599332492 5 MG Active TAKE 2 TABLETS BY MOUTH WITH FOOD OR MILK ONCE A DAY Levoxyl [facility] [address]-44 100mg/150mg once a day Active 1 tablet of each Calcium NDC 0 1000 mg orally daily Active one tab Multivitamins ND 00444697267 Orally Once a day Active 1 tablet Spironolactone ND 68114190153 25 MG Orally once a day Active 1 tablet Vitamin C ND 84863065062 1000 MG Orally Once a day Active 1 tablet Hydrocodone-Acetaminophen ND 62490923600 10-325 MG Orally three times a day Active 1 tablet as needed Voltaren [facility] 01818137627 1 % Transdermal Four times a day as needed Active as directed Vitamin B12 [facility] 09932071935 Sublingual Once a day Active as directed Dicyclomine HCl [facility] 16620466388 10 MG Orally three times a day Active 1 capsule Iron [facility] [address]-48 65 MG Orally Once a day Active 1 tablet Diabetic Siltussin-DM [facility] 75808761373 100-10 MG/5ML Orally every 4 hrs Active 10 ml as needed Tramadol ND 0 50 mg orally 4 - 6 hours as needed February 22, 2018 Active one tab Folic Acid [facility] 64394562321 1 MG Orally twice a day Active 2 tablets Advil [facility] 66189860769 Orally as needed Active 1 tablet as needed Plaquenil [facility] 85201070454 200 MG Active TAKE 2 TABLETS BY MOUTH ONCE A DAY Zofran [facility] 53629758684 8 MG Orally as needed Active as needed Vitamin D (Ergocalciferol) [facility] 52127757564 72582 UNIT Orally once a week Active 1 capsule Vital Signs Date/Time: Nov 24, 2017 BMI 33.50 Index Weight 195.2 lbs Height 64 in Temperature 97.8 F Cardiac Monitoring Heart Rate 80 /min Blood Pressure Diastolic 74 mm Hg Blood Pressure Systolic 100 mm Hg Results No Known Results Summary Purpose eClinicalWorks Submission
--- OUTSIDE RECORDS SUMMARY | 2019-06-06 08:38 | XMS REPORT ---
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 Active Problem Unspecified drug dependence 304.90 Active Problem Abnormal Lab Test 796.4 Active Problem Sjogren's Disease 710.2 Active Problem Rheumatoid arthritis 714.0 Active Problem Long-term (current) use of other medications - High Risk V58.69 Active Problem Postmenopausal status (age-related) V49.81 Active Medications Medication Code System Code Instructions Start Date End Date Status Dosage Tramadol HCl [facility] [address]-90 50 MG Orally Three Times a day Jul 03, 2014 Active Take One Tablet Social History Social History Element Qualifiers Date Reported Tobacco Use: . Are you a:: never smoker Jun 13, 2014 Caffeine: yes. frequency: 32 oz day Jun 13, 2014 Exercise: no. Jun 13, 2014 Alcohol: no. Jun 13, 2014 Summary Purpose eClinicalWorks Submission
--- OUTSIDE RECORDS SUMMARY | 2019-06-06 08:38 | XMS REPORT ---
Author Author Eryn Hearn [facility] eClinicalWorks Address Unknown Phone Unavailable Care Team Providers Care Electrical Superintendent Name Role Phone Eryn Hearn Unavailable Allergies, Adverse Reactions, Alerts Substance Reaction Event Type Jevon Chavez developed stomach cancer after initiation Drug Allergy Sulfa itching Non Drug Allergy Problems Problem Type Condition Code Onset Dates Condition Status Problem Other fdc (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 Z79.899 Active Problem Sjogrens [...] prescription opiate use Z79.891 Active Assessment Other hadoop developer (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 Z79.899 Active Assessment Rheumatoid arthritis without rheumatoid factor, multiple sites M06.09 Active Assessment Raynaud disease I73.00 Active Assessment Sjogrens syndrome M35.00 Active Problem Osteopenia M85.80 Active Medications Medication Code System Code Instructions Start Date End Date Status Dosage Zofran [facility] 90902872259 8 MG Orally as needed Active as needed Calcium NDC 0 1000 mg orally daily Active one tab Folic Acid ND 23715894426 1 MG Orally twice a day Active 2 tablets Dicyclomine HCl ND 10639061601 10 MG Orally three times a day Active 1 capsule Hydroxychloroquine Sulfate ND 13563042673 200 MG Orally Once a day February 28, 2019 Active 2 TABLETS WITH FOOD OR MILK Vitamin D-3 ND 91302512731 1000 UNIT Orally Once a day Active 1 capsule Diclofenac Sodium ND 59370343371 1 % Transdermal 4 times daily to affected area prn Active apply topically Advil ND 73337148772 Orally as needed Active 1 tablet as needed Levoxyl [facility] 62393674574 125 MCG Orally once a day Active 1 tablet of each Iron [facility] [address]-22 65 MG Orally Once a day Active 1 tablet Tramadol HCl [facility] 25442283139 50 MG Orally TID Active 1 tablet as needed Multivitamins [facility] 90799133987 Orally Once a day Active 1 tablet Spironolactone [facility] 94785364863 25 MG Orally once a day Active 1 tablet Vitamin C [facility] 93544962341 1000 MG Orally Once a day Active 1 tablet PredniSONE [facility] 83611939926 5 MG Orally Once a day March 13, 2019 Active 2 tablets Vitamin D (Ergocalciferol) [facility] 78831529577 50,000 Orally once a week Active 1 capsule Vitamin B12 [facility] 68659565136 Sublingual Once a day Active as directed Omeprazole [facility] 89470169078 20 MG Orally Once a day Active 1 capsule Hydrocodone-Acetaminophen [facility] 03656102318 10-325 MG Orally three times a day Active 1 tablet as needed Vital Signs Date/Time: March 28, 2019 BMI 30.32 Index Weight 171.2 lbs Height 63 in Temperature 98.7 F Cardiac Monitoring Heart Rate 80 /min Blood Pressure Diastolic 78 mm Hg Blood Pressure Systolic 118 mm Hg Results No Known Results Summary Purpose eClinicalWorks Submission
--- OUTSIDE RECORDS SUMMARY | 2019-06-06 08:38 | XMS REPORT ---
Author Author Robert Reid Organization eClinicalWorks Address Unknown Phone Unavailable Care Team Providers Care Braid Folder Name Role Phone Robert Reid CP Unavailable Allergies No Known Allergies Problems Problem Type Condition Code Onset Dates Condition Status Problem Other terminal gauger (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 Z79.899 Active Problem Sjogrens [...] Date End Date Status Dosage Hydroxychloroquine Sulfate [facility] 14399245267 200 MG Orally Once a day February 28, 2019 Active 2 TABLETS WITH FOOD OR MILK Results No Known Results Summary Purpose eClinicalWorks Submission
--- OUTSIDE RECORDS SUMMARY | 2019-06-06 08:38 | XMS REPORT ---
Author Author Eryn Hearn Organization eClinicalWorks Address Unknown Phone Unavailable Care Team Providers Care Flosser Name Role Phone Eryn Hearn Unavailable Allergies No Known Allergies Problems Problem Type Condition Code Onset Dates Condition Status Problem Other prison (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 Z79.899 Active Problem Sjogrens [...] Date End Date Status Dosage Tramadol HCl [facility] 56254782750 50 MG Orally TID Active 1 tablet as needed Results No Known Results Summary Purpose eClinicalWorks Submission
--- OUTSIDE RECORDS SUMMARY | 2019-06-06 08:38 | XMS REPORT ---
Author Author Robert Reid eClinicalWorks Address Unknown Phone Unavailable Care Team Providers Care Senior Ui Ux Designer Name Role Phone Robert Reid CP Unavailable Encounters Encounter Location Date RX Refill Request Robert Reid MD Jun 25, 2014 RX Fax Failure Robert Reid MD Jul 03, 2014 Triplicate-- Hydrocodone 08/11 Robert Reid MD Aug 07, 2014 RX Failure Robert Reid MD Aug 13, 2014 cbc Robert Reid MD February 15, 2014 4m f/u Robert Reid MD February 11, 2014 folic acid Robert Reid MD February 18, 2014 Unknown Robert Reid MD Nov 18, 2014 DEXA Robert Reid MD April 27, 2015 Unknown oRbert Reid MD April 15, 2015 refill norco 09/10 Robert Reid MD Sep 09, 2014 Triplicate-- Hydrocodone Robert Reid MD Oct 11, 2014 DEXA Robert Reid MD February 16, 2015 Research Robert Reid MD March 17, 2015 MRI Bi-hands Robert Reid MD Dec 05, 2014 f/u norco Robert Reid MD February 13, 2015 Pt complaint Robert Reid MD April 15, 2015 RX Robert Reid MD Nov 14, 2014 1 mo f/u Robert Reid MD January 13, 2015 DEXA Robert Reid MD Dec 05, 2014 folic acid Robert Reid MD December 17, 2014 Unknown Robert Reid MD March 14, 2015 Problems Problem Type Condition ICD-9 Code Onset Dates Condition Status Problem Neutropenia, unspecified 288.00 Active Problem Osteoporosis, 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 April 15, 2015 Alcohol Screening: . Points: 0 April 15, 2015 Tobacco Use: . Are you a:: never smoker April 15, 2015 Marital Status: . April 15, 2015 Caffeine: yes. frequency: 48 ounces /day April 15, 2015 Exercise: no. April 15, 2015 Alcohol: no. April 15, 2015 Summary Purpose eClinicalWorks Submission
--- OUTSIDE RECORDS SUMMARY | 2019-06-06 08:38 | XMS REPORT ---
Author Robert Julien [facility] eClinicalWorks Address Unknown Phone Unavailable Care Team Providers Care Community Relations Representative Name Role Phone Robert Reid Unavailable Allergies, Adverse Reactions, Alerts Substance Reaction Event Type Sulfa itching Non Drug Allergy Encounters Encounter Location Date cbc Robert Reid MD February 15, 2014 4m f/u Robert Reid MD February 11, 2014 Problems Problem Type Condition ICD-9 Code Onset Dates Condition Status Assessment Unspecified drug dependence 304.90 Active Assessment Rheumatoid arthritis 714.0 Active Assessment Sjogren's Disease 710.2 Active Problem Unspecified drug dependence 304.90 Active Problem Long-term (current) use of other medications - High Risk V58.69 Active Problem Osteoporosis, 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 Active Problem Rheumatoid arthritis 714.0 Active Problem Neutropenia, unspecified 288.00 Active Problem Postmenopausal status (age-related) V49.81 Active Problem Sjogren's Disease 710.2 Active Medications Medication Code System Code Instructions Start Date End Date Status Dosage Dicyclomine HCl [facility] [address]-66 10 MG Orally three times a day Active 1 capsule Zovia E (28) [facility] [address]-98 once a day Active 1 tablet Folic Acid [facility] [address]-98 1 Active TAKE TWO TABLETS BY MOUTH TWICE A DAY Zofran [facility] [address]-38 8 MG Orally Active as needed Multivitamins [facility] [address]-69 Orally Once a day Active 1 tablet Levoxyl Unknown 0 100mg/150mg once a day Active 1 tablet of each Hydrocodone-Acetaminophen [facility] [address]-88 10-325 MG Orally three times a day Active 1 tablet as needed PredniSONE [facility] [address]-53 5 Active TAKE ONE TABLET BY MOUTH EVERY DAY WITH FOOD Hydroxychloroquine Sulfate [facility] [address]-14 200 Active TAKE TWO TABLETS BY MOUTH EVERY DAY WITH FOOD OR DRINK Vitamin D (Ergocalciferol) [facility] [address]-06 50,000 Active TAKE 1 CAPSULE BY MOUTH EVERY WEEK Folic Acid [facility] [address]-37 1 mg orally q am Active TAKE TWO TABLETS BY MOUTH TWICE A DAY Iron [facility] [address]-18 65 MG Orally once a day Active as directed Amoxicillin [facility] [address]-03 500 MG Orally tid February 11, 2014 March 03, 2014 Active one caqpsule Tramadol HCl [facility] [address]-16 50 MG Active TAKE ONE TABLET BY MOUTH THREE TIMES A DAY Social History Social History Element Qualifiers Date Reported Caffeine: yes. frequency: 32 oz day February 11, 2014 Exercise: no. February 11, 2014 Alcohol: no. February 11, 2014 Vital Signs Date/Time: February 11, 2014 Weight 234 lbs Height 65 in Temperature 97.7 F Cardiac Monitoring Heart Rate 80 /min Blood Pressure Diastolic 80 mm Hg Blood Pressure Systolic 128 mm Hg Summary Purpose eClinicalWorks Submission
--- OUTSIDE RECORDS SUMMARY | 2019-06-06 08:38 | XMS REPORT ---
Author Author Eryn Hearn Organization eClinicalWorks Address Unknown Phone Unavailable Care Team Providers Care Insurance Attorney Name Role Phone Eryn Hearn CP Unavailable Allergies No Known Allergies Problems Problem Type Condition Code Onset Dates Condition Status Problem Other care home (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 Z79.899 Active Problem Sjogrens [...] Date End Date Status Dosage Hydroxychloroquine Sulfate [facility] 89345394275 200 MG Orally Once a day Active 2 TABLETS WITH FOOD OR MILK PredniSONE [facility] 86631311511 5 MG Orally Once a day Active 2 tablets Results No Known Results Summary Purpose eClinicalWorks Submission
--- OUTSIDE RECORDS SUMMARY | 2019-06-06 08:38 | XMS REPORT ---
Author Author Robert Reid [facility] eClinicalWorks Address Unknown Phone Unavailable Care Team Providers Care Field Reporter Name Role Phone Robert Reid Unavailable Encounters [...] Date End Date Status Dosage Tramadol HCl [facility] 63845850798 50 Orally three times a day Jun 20, 2015 Active Take one tablet Social History Social History Element Qualifiers Date Reported Tobacco Use: . Are you a:: never smoker Jun 13, 2014 Caffeine: yes. frequency: 32 oz day Jun 13, 2014 Exercise: no. Jun 13, 2014 Alcohol: no. Jun 13, 2014 Summary Purpose eClinicalWorks Submission
--- OUTSIDE RECORDS SUMMARY | 2019-06-06 08:38 | XMS REPORT ---
Author Author Eryn Hearn Organization eClinicalWorks Address Unknown Phone Unavailable Care Team Providers Care Radiator Core Tester Name Role Phone Eryn Hearn Unavailable Allergies [...]
--- OUTSIDE RECORDS SUMMARY | 2019-06-06 08:38 | XMS REPORT ---
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 Problem Unspecified drug dependence 304.90 Active Problem Abnormal Lab Test 796.4 Active Problem Sjogren's Disease 710.2 Active Problem Rheumatoid arthritis 714.0 Active Problem Long-term (current) use of other medications - High Risk V58.69 Active Problem Postmenopausal status (age-related) V49.81 Active Medications Medication Code System Code Instructions Start Date End Date Status Dosage Hydrocodone-Acetaminophen [facility] [address]-02 10-325 MG Orally three times a day Dec 07, 2014 Active 1 tablet as needed Social History Social History Element Qualifiers Date Reported Tobacco Use: . Are you a:: never smoker Jun 13, 2014 Caffeine: yes. frequency: 32 oz day Jun 13, 2014 Exercise: no. Jun 13, 2014 Alcohol: no. Jun 13, 2014 Summary Purpose eClinicalWorks Submission
--- OUTSIDE RECORDS SUMMARY | 2019-06-06 08:38 | XMS REPORT ---
Author Author Eryn Hearn [facility] eClinicalWorks Address Unknown Phone Unavailable Care Team Providers Care Casino Investigator Name Role Phone Eryn Hearn Unavailable Allergies, [...] Chronic prescription opiate use Z79.891 Active Assessment Sjogrens syndrome M35.00 Active Assessment Rheumatoid arthritis without rheumatoid factor, multiple sites M06.09 Active Assessment Raynaud disease I73.00 Active Assessment Other assisted (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 Z79.899 Active Problem Osteopenia M85.80 Active Medications Medication Code System Code Instructions Start Date End Date Status Dosage Multivitamins ND 10506098093 Orally Once a day Active 1 tablet Iron [facility] [address]-18 65 MG Orally Once a day Active 1 tablet Vitamin D-3 ND 23419307932 1000 UNIT Orally Once a day Active 1 capsule Omeprazole ND 09689988292 20 MG Orally Once a day Active 1 capsule Calcium ND 0 1000 mg orally daily Active one tab Diclofenac Sodium ND 50163024866 1 % Transdermal 4 times daily to affected area prn Active apply topically Vitamin B12 ND 27718870499 Sublingual Once a day Active as directed Zofran ND 77942453739 8 MG Orally as needed Active as needed PredniSONE ND 04288205714 5 MG Orally Once a day December 13, 2018 Active 2 tablets Vitamin D (Ergocalciferol) [facility] 62724990361 50,000 Orally once a week Active 1 capsule Advil [facility] 14505875823 Orally as needed Active 1 tablet as needed Hydroxychloroquine Sulfate [facility] 57594557814 200 MG Orally Once a day Active 2 TABLETS WITH FOOD OR MILK Tramadol HCl [facility] 34704958642 50 MG Orally TID Active 1 tablet as needed Folic Acid [facility] 82489398504 1 MG Orally twice a day Active 2 tablets Vitamin C [facility] 80708485910 1000 MG Orally Once a day Active 1 tablet Hydrocodone-Acetaminophen [facility] 45499555562 10-325 MG Orally three times a day Active 1 tablet as needed Dicyclomine HCl [facility] 40228164180 10 MG Orally three times a day Active 1 capsule Levoxyl [facility] 08423033478 125 MCG Orally once a day Active 1 tablet of each Spironolactone [facility] 74488295016 25 MG Orally once a day Active 1 tablet Vital Signs Date/Time: February 26, 2019 BMI 30.19 Index Weight 175.9 lbs Height 64 in Temperature 97.9 F Cardiac Monitoring Heart Rate 74 /min Blood Pressure Diastolic 68 mm Hg Blood Pressure Systolic 110 mm Hg Results Name Result Date Reference Range Unit Abnormality Flag CBC W/AUTO DIFF ----MONOCYTES 6.2 20190226 4.0-13.0 % ----LYMPHOCYTES 12.0 20190226 19.0-48.0 % L ----HEMOGLOBIN 12.6 20190226 11.5-15.5 G/DL ----HEMATOCRIT 37.9 20190226 34.0-45.0 % ----MCV 99.7 20190226 80.0-100.0 fL ----MCH 33.2 20190226 27.0-34.0 PG ----MCHC 33.2 20190226 32.0-35.5 G/DL ----PLATELET COUNT 149 20190226 130-400 K/UL ----RDW 12.9 13571585 11.0-15.0 % ----BASOPHILS 0.4 32802005 0.0-2.0 % ----WBC 5.2 20190226 4.0-11.0 K/UL ----NEUTROPHILS 81.2 20190226 40.0-74.0 % H ----RBC 3.80 [id number] 3.80-5.10 M/UL ----EOSINOPHILS 0.2 [id number] 0.0-7.0 % C-REACTIVE PROTEIN ----C-REACTIVE PROTEIN <0.1 51335012 <0.5 MG/DL COMPREHENSIVE METABOLIC PANEL ----CALC A/G RATIO 1.5 20190226 1.0-2.6 RATIO ----CALC GLOBULIN 2.4 [id number] 1.9-3.7 G/DL ----ALKALINE PHOSPHATASE 101 20190226 40-133 U/L ----BILIRUBIN, TOTAL 0.5 20190226 <=1.2 MG/DL ----CHLORIDE 107 20190226 95-107 MEQ/L ----ALT 20 20190226 5-40 U/L ----POTASSIUM 4.2 61411084 3.5-5.4 MEQ/L ----AST 33 20190226 9-40 U/L ----SODIUM 144 58904015 133-146 MEQ/L ----CALC BUN/CREAT 10 15845006 6-28 RATIO ---- eGFR NON- AMER. 101 20190226 >60 ML/MIN/1.73 ----CALCIUM 8.8 [id number] 8.5-10.5 MG/DL ----CARBON DIOXIDE 28 20190226 19-31 MEQ/L ----ALBUMIN 3.6 20190226 3.5-5.2 G/DL ----PROTEIN, TOTAL 6.0 20087702 6.1-8.3 G/DL L ----GLUCOSE 91 20190226 70-99 MG/DL ----BUN 6 08398274 6-20 MG/DL ----CREATININE 0.63 20190226 0.60-1.30 MG/DL ---- eGFR AMER. 117 20190226 >60 ML/MIN/1.73 SEDIMENTATION RATE ----SEDIMENTATION RATE 12 [id number] 0-20 MM/HOUR Summary Purpose eClinicalWorks Submission
--- OUTSIDE RECORDS SUMMARY | 2019-06-06 08:38 | XMS REPORT ---
Author Author Cristhian Lagos [facility] eClinicalWorks Address Unknown Phone Unavailable Care Team Providers Care Printmaker Name Role Phone Cristhian Lagos Unavailable Allergies, Adverse Reactions, Alerts Substance Reaction Event Type Jevon Chavez developed stomach cancer after initiation Drug Allergy Sulfa itching Non Drug Allergy Encounters Encounter Location Date RX Refill Request [...] Unknown Robert Reid MD Nov 18, 2014 ARYAA Robert Reid MD April 27, 2015 Unknown Robert Reid MD April 15, 2015 refill norco 09/10 Robert Reid MD Sep 09, 2014 Triplicate-- Hydrocodone Robert Reid MD Oct 11, 2014 TYRONE Reid MD February 16, 2015 Research Robert [...] ICD-9 Code Onset Dates Condition Status Assessment Rheumatoid arthritis 714.0 Active Problem Neutropenia, unspecified 288.00 Active Assessment Sjogren's Disease 710.2 Active Assessment Osteoporosis, 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 [address]-68 25 MG Orally Twice a day Active 1 tablet Vitamin D-[address] [facility] [address] 1000 UNIT Orally Once a day Active 1 capsule Multivitamins [facility] [address]-84 Orally Once a day Active 1 tablet [address]enil [facility] [address]-98 200 MG Orally Once a day Active 2 tablet with food or milk Vitamin B12 [facility] [address]-58 Sublingual Once a day Active as directed Hydrocodone-Acetaminophen [facility] [address]-65 10-325 MG Orally three times a day Active 1 tablet as needed Dicyclomine HCl [facility] [address]-19 10 MG Orally three times a day Active 1 capsule Vitamin D (Ergocalciferol) [facility] 76577348687 50,000 Active TAKE ONE CAPSULE BY MOUTH ONCE WEEKLY Tramadol HCl [facility] [address]-34 50 MG Orally Three Times a day Jul 03, 2014 Active Take One Tablet Folic Acid [facility] 68654464865 1 Active TAKE TWO TABLETS BY MOUTH TWICE A DAY Levoxyl [facility] [address]-65 100mg/150mg once a day Active 1 tablet of each Voltaren [facility] [address]-09 1 % Transdermal Active as directed Iron [facility] [address]-59 65 MG Orally Once a day Active 2 tablets Zovia /35E (28) [facility] [address]-97 once a day Active [address] [facility] [address]-53 8 MG Orally Active as needed PredniSONE [facility] 74069224986 5 Active TAKE ONE TABLET BY MOUTH ONCE A DAY WITH FOOD Social History Social History Element Qualifiers Date Reported Diet: no. April 15, 2015 Alcohol Screening: . Points: 0 April 15, 2015 Tobacco Use: . Are you a:: never smoker April 15, 2015 Marital Status: . April 15, 2015 Caffeine: yes. frequency: 48 ounces /day April 15, 2015 Exercise: no. April 15, 2015 Alcohol: no. April 15, 2015 Vital Signs Date/Time: April 15, 2015 Weight 209 lbs Height 66 in Temperature 98.0 F Cardiac Monitoring Heart Rate 78 /min Blood Pressure Diastolic 72 mm Hg Blood Pressure Systolic 112 mm Hg Summary Purpose eClinicalWorks Submission
--- OUTSIDE RECORDS SUMMARY | 2019-06-06 08:38 | XMS REPORT ---
Author Author Robert Reid [facility] eClinicalWorks Address Unknown Phone Unavailable Care Team Providers Care Tobacco Warehouse Manager Name Role Phone Robert Reid Unavailable Encounters Encounter Location Date cbc Robert Reid [...] Date End Date Status Dosage Folic Acid [facility] [address]-87 1 MG orally twice a day Active 2 tablets Social History Social History Element Qualifiers Date Reported Caffeine: yes. frequency: 32 oz day February 11, 2014 Exercise: no. February 11, 2014 Alcohol: no. February 11, 2014 Summary Purpose eClinicalWorks Submission
--- OUTSIDE RECORDS SUMMARY | 2019-06-06 08:38 | XMS REPORT ---
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.899 Active Assessment Rheumatoid arthritis without rheumatoid factor, multiple sites M06.09 Active Assessment Chronic prescription opiate use Z79.891 Active Problem Osteopenia M85.80 Active Medications Medication Code System Code Instructions Start Date End Date Status Dosage Dicyclomine HCl ND 95115392903 10 MG Orally three times a day Active 1 capsule Tramadol HCl ND 56632334158 50 MG Orally TID Active 1 tablet as needed Vitamin B12 ND 82911420960 Sublingual Once a day Active as directed Vitamin C ND 09843549317 1000 MG Orally Once a day Active 1 tablet Folic Acid ND 78884881360 1 MG Orally twice a day Active 2 tablets Hydroxychloroquine Sulfate ND 79294494246 200 MG Orally Once a day Active 2 TABLETS WITH FOOD OR MILK Diclofenac Sodium ND 65680650397 1 % Transdermal 4 times daily to affected area prn Active apply topically Calcium NDC 0 1000 mg orally daily Active one tab Vitamin D (Ergocalciferol) ND 78267299665 50,000 Orally once a week Active 1 capsule Zofran NDC 68775947018 8 MG Orally as needed Active as needed Vitamin D-[address] [facility] 88226436493 1000 UNIT Orally Once a day Active 1 capsule PredniSONE [facility] 25207848978 5 MG Orally Once a day Active 2 tablets Multivitamins [facility] 41712633164 Orally Once a day Active 1 tablet Spironolactone [facility] 09496426421 25 MG Orally once a day Active 1 tablet Hydrocodone-Acetaminophen [facility] 67006772857 10-325 MG Orally three times a day Active 1 tablet as needed Levoxyl [facility] [address]-59 100mg/150mg once a day Active 1 tablet of each Iron [facility] [address]-12 65 MG Orally Once a day Active 1 tablet Advil [facility] 99695854815 Orally as needed Active 1 tablet as needed Vital Signs Date/Time: Jul 24, 2018 BMI 32.06 Index Weight 189.7 lbs Height 64.5 in Temperature 97.8 F Cardiac Monitoring Heart Rate 76 /min Blood Pressure Diastolic 80 mm Hg Blood Pressure Systolic 120 mm Hg Results No Known Results Summary Purpose eClinicalWorks Submission
--- OUTSIDE RECORDS SUMMARY | 2019-06-06 08:38 | XMS REPORT ---
Author Author Pramod Ellis Organization eClinicalWorks Address Unknown Phone Unavailable Care Team Providers Care Icu Specialist Name Role Phone RhondaPramod CP Unavailable Allergies, Adverse Reactions, Alerts Substance Reaction Event Type Sulfa itching Non Drug Allergy Encounters Encounter Location Date RX Refill Request Robert Reid MD Jun 25, 2014 RX Fax Failure Robert Reid MD Jul 03, 2014 Triplicate-- Hydrocodone 08/11 Robert Reid MD Aug 07, 2014 RX Failure Robert eRid MD Aug 13, 2014 cbc Robert Reid MD February 15, 2014 4m f/u Robert Reid MD February 11, 2014 folic acid Robert Reid MD February 18, 2014 Unknown Robert Reid MD Nov 18, 2014 TYRONE Reid MD April 27, 2015 Unknown Robert [...] RX Robert Reid MD Nov 14, 2014 4m f/u Robert Reid MD December 12, 2014 1 mo f/u Robert Reid MD January 13, 2015 DEXA Robert Reid MD Dec 05, 2014 folic acid Robert Reid MD December 17, 2014 Unknown Robert Reid MD March 14, 2015 Problems Problem Type Condition ICD-9 Code Onset Dates Condition Status Assessment Long-term (current) use of other medications - High Risk V58.69 Active Problem Neutropenia, unspecified 288.00 Active Assessment Sjogren's Disease 710.2 Active Assessment Osteoporosis, 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 Active Assessment Rheumatoid arthritis 714.0 Active Problem [...] Start Date End Date Status Dosage Spironolactone [facility] [address]-34 25 MG Orally Twice a day Active 1 tablet Vitamin D (Ergocalciferol) [facility] [address]-87 [address]137 UNIT Orally once a week Active 1 capsule Methotrexate Unknown 0 2.5mg Orally Once a week December 12, 2014 Active 5 tablets Iron [facility] [address]-95 65 MG Orally Once a day Active 2 tablets Hydroxychloroquine Sulfate [facility] 83927960954 200 Inactive TAKE TWO TABLETS BY MOUTH EVERY DAY WITH FOOD OR DRINK Hydrocodone-Acetaminophen [facility] [address]-28 10-325 MG Orally three times a day Active 1 tablet as needed Tramadol HCl [facility] [address]-31 50 MG Orally Three Times a day Jul 03, 2014 Active Take One Tablet Vitamin B12 [facility] [address]-83 Sublingual Once a day Active as directed Levoxyl [facility] [address]-63 100mg/150mg once a day Active 1 tablet of each Zovia 35E (28) [facility] [address]-77 once a day Active 1 tablet Folic Acid [facility] 96573582151 1 Active TAKE TWO TABLETS BY MOUTH TWICE A DAY Dicyclomine HCl [facility] [address]-01 10 MG Orally three times a day Active 1 capsule PredniSONE [facility] 25958457530 5 Active TAKE ONE TABLET BY MOUTH EVERY DAY WITH FOOD Vitamin D-3 [facility] [address]14-[address] 1000 UNIT Orally Once a day Active 1 capsule Zofran [facility] [address]-36 8 MG Orally Active as needed Multivitamins [facility] [address]-21 Orally Once a day Active 1 tablet Social History Social History Element Qualifiers Date Reported Diet: no. April 15, 2015 Alcohol Screening: . Points: 0 April 15, 2015 Tobacco Use: . Are you a:: never smoker April 15, 2015 Marital Status: . April 15, 2015 Caffeine: yes. frequency: 48 ounces /day April 15, 2015 Exercise: no. April 15, 2015 Alcohol: no. April 15, 2015 Vital Signs Date/Time: December 12, 2014 Weight 214 lbs Height 66 in Temperature 98.6 F Cardiac Monitoring Heart Rate 70 /min Blood Pressure Diastolic 70 mm Hg Blood Pressure Systolic 120 mm Hg Summary Purpose eClinicalWorks Submission
--- OUTSIDE RECORDS SUMMARY | 2019-06-06 08:38 | XMS REPORT ---
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 Active Assessment Rheumatoid arthritis without rheumatoid factor, multiple sites M06.09 Active Problem Osteopenia M85.80 Active Medications Medication Code System Code Instructions Start Date End Date Status Dosage Vitamin D (Ergocalciferol) [facility] 68565588327 77126 UNIT Orally once a week Active 1 capsule Tramadol HCl ND 39512625855 50 MG Orally TID Active 1 tablet as needed Iron [facility] [address]-82 65 MG Orally Once a day Active 1 tablet Hydroxychloroquine Sulfate ND 27632386916 200 MG Orally Once a day April 13, 2018 Active 2 TABLETS WITH FOOD OR MILK Spironolactone ND 37781988645 25 MG Orally once a day Active 1 tablet Vitamin B12 ND 73437467210 Sublingual Once a day Active as directed Plaquenil ND 95263916310 200 MG Active TAKE 2 TABLETS BY MOUTH ONCE A DAY Diclofenac Sodium ND 08712157543 1 % Transdermal 4 times daily to affected area prn Active apply topically Vitamin C ND 71015409789 1000 MG Orally Once a day Active 1 tablet Hydrocodone-Acetaminophen [facility] 05362039606 10-325 MG Orally three times a day May 27, 2018 Active 1 tablet as needed Vitamin D-3 [facility] 46159495163 1000 UNIT Orally Once a day Active 1 capsule PredniSONE [facility] 70953943748 5 MG Active TAKE 2 TABLETS BY MOUTH WITH FOOD OR MILK ONCE A DAY Folic Acid [facility] 19290744819 1 MG Orally twice a day Active 2 tablets Calcium NDC 0 1000 mg orally daily Active one tab Levoxyl [facility] [address]-40 100mg/150mg once a day Active 1 tablet of each Advil [facility] 63654909826 Orally as needed Active 1 tablet as needed Multivitamins [facility] 06571176962 Orally Once a day Active 1 tablet Dicyclomine HCl [facility] 63194174902 10 MG Orally three times a day Active 1 capsule Zofran [facility] 09003234283 8 MG Orally as needed Active as needed Vital Signs Date/Time: April 27, 2018 BMI 34.89 Index Weight 200.1 lbs Height 63.5 in Temperature 98.1 F Cardiac Monitoring Heart Rate 74 /min Blood Pressure Diastolic 70 mm Hg Blood Pressure Systolic 110 mm Hg Results No Known Results Summary Purpose eClinicalWorks Submission
--- OUTSIDE RECORDS SUMMARY | 2019-06-06 08:38 | XMS REPORT ---
Author Author Robert Reid eClinicalWorks Address Unknown Phone Unavailable Care Team Providers Care Process Coach Name Role Phone Robert Reid CP Unavailable [...]
--- OUTSIDE RECORDS SUMMARY | 2019-06-06 08:38 | XMS REPORT ---
Author Author Eryn Hearn [facility] eClinicalWorks Address Unknown Phone Unavailable Care Team Providers Care Pumping Plant Operator Name Role Phone Eryn Hearn Unavailable Allergies, Adverse Reactions, Alerts Substance Reaction Event Type Jevon Chavez developed stomach cancer after initiation Drug Allergy Sulfa itching Non Drug Allergy Problems Problem Type Condition Code Onset Dates Condition Status Problem Other custodial (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 Z79.899 Active Problem Sjogrens [...] elbow pain M25.522 Active Assessment Other long term care social worker (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 Z79.899 Active Assessment Rheumatoid arthritis without rheumatoid factor, multiple sites M06.09 Active Assessment Neck pain M54.2 Active Assessment Chronic prescription opiate use Z79.891 Active Problem Osteopenia M85.80 Active Medications Medication Code System Code Instructions Start Date End Date Status Dosage Vitamin D-3 [facility] 99655572575 1000 UNIT Orally Once a day Active 1 capsule Advil ND 89912653184 Orally as needed Active 1 tablet as needed Tramadol HCl ND 00422805561 50 MG Orally TID Active 1 tablet as needed Iron [facility] [address]-34 65 MG Orally Once a day Active 1 tablet Calcium ND 0 1000 mg orally daily Active one tab Hydrocodone-Acetaminophen ND 77472268269 10-325 MG Orally three times a day Active 1 tablet as needed PredniSONE ND 61206059936 5 MG Active TAKE 2 TABLETS BY MOUTH WITH FOOD OR MILK ONCE A DAY Folic Acid ND 77952304024 1 MG Orally twice a day Active 2 tablets Vitamin D (Ergocalciferol) [facility] 52941625984 50,000 Active TAKE ONE CAPSULE BY MOUTH ONCE WEEKLY Dicyclomine HCl [facility] 30493255199 10 MG Orally three times a day Active 1 capsule Diclofenac Sodium [facility] 85275402997 1 % Transdermal 4 times daily to affected area prn Active apply topically Vitamin B12 [facility] 30787086538 Sublingual Once a day Active as directed Hydroxychloroquine Sulfate [facility] 26006670204 200 MG Orally Once a day Active 2 TABLETS WITH FOOD OR MILK Levoxyl [facility] [address]-52 100mg/150mg once a day Active 1 tablet of each Multivitamins [facility] 72335902167 Orally Once a day Active 1 tablet Spironolactone [facility] 58417343553 25 MG Orally once a day Active 1 tablet Vitamin C [facility] 81418835243 1000 MG Orally Once a day Active 1 tablet Zofran [facility] 48481070396 8 MG Orally as needed Active as needed Vital Signs Date/Time: Jun 28, 2018 BMI 31.94 Index Weight 189 lbs Height 64.5 in Temperature 98.3 F Cardiac Monitoring Heart Rate 80 /min Blood Pressure Diastolic 78 mm Hg Blood Pressure Systolic 116 mm Hg Results No Known Results Summary Purpose eClinicalWorks Submission
--- OUTSIDE RECORDS SUMMARY | 2019-06-06 08:38 | XMS REPORT ---
Author Author Robert Redi [facility] [place] eClinicalWorks Address Unknown Phone Unavailable Care Team Providers Care Master Deputy Sheriff Court Security Name Role Phone Robert Reid Unavailable Encounters Encounter Location Date RX Refill Request Robert Reid MD Jun 25, 2014 RX Fax Failure Robert Reid MD Jul 03, 2014 Triplicate-- Hydrocodone 08/11 Robert Ried MD Aug 07, 2014 RX Failure Robert [...] Active Problem Postmenopausal status (age-related) V49.81 Active Social History Social History Element Qualifiers Date Reported Tobacco Use: . Are you a:: never smoker Jun 13, 2014 Caffeine: yes. frequency: 32 oz day Jun 13, 2014 Exercise: no. Jun 13, 2014 Alcohol: no. Jun 13, 2014 Summary Purpose eClinicalWorks Submission
--- OUTSIDE RECORDS SUMMARY | 2019-06-06 08:38 | XMS REPORT ---
Author Author Robert Reid [facility] eClinicalWorks Address Unknown Phone Unavailable Care Team Providers Care Transplant Nurse Practitioner Name Role Phone Robert Reid CP Unavailable [...] acid Robert Reid MD February 18, 2014 refill norco 09/10 Robert Reid MD Sep 09, 2014 Problems Problem Type Condition ICD-9 Code [...] Start Date End Date Status Dosage [facility] [address]-43 10-325 MG Orally three times a day Oct 09, 2014 Active 1 tablet as needed Social History Social History Element Qualifiers Date Reported Tobacco Use: . Are you a:: never smoker Jun 13, 2014 Caffeine: yes. frequency: 32 oz day Jun 13, 2014 Exercise: no. Jun 13, 2014 Alcohol: no. Jun 13, 2014 Summary Purpose eClinicalWorks Submission
--- OUTSIDE RECORDS SUMMARY | 2019-06-06 08:38 | XMS REPORT ---
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
--- OUTSIDE RECORDS SUMMARY | 2019-06-06 08:39 | XMS REPORT ---
Author Author Robert Reid eClinicalWorks Address Unknown Phone Unavailable Care Team Providers Care Manager Statistical Programming Name Role Phone Robert Reid CP Unavailable Encounters Encounter Location Date Unknown Robert Reid MD Nov 18, 2014 3 MTH FU Robert Reid MD December 12, 2015 rx refill Robert Reid MD December 15, 2015 Refill- Tramadol, Plaquenil, Prednisone Robert Reid MD December 11, 2015 MRI Robert Reid MD February 01, 2016 TYRONE Reid MD February 16, 2015 Research Robert Reid MD March 17, 2015 1 MTH FU Robert Reid MD Nov 13, 2015 MRI Bi-hands Robert Reid MD Dec 05, 2014 1 MTH FU Robert Reid MD January 12, 2016 f/u norco Robert Reid MD February 13, 2015 RX Robert Reid MD Nov 14, 2014 1 mo f/u Robert Reid MD January 13, 2015 TYRONE Reid MD Dec 05, 2014 folic acid Robert Reid MD December 17, 2014 Unknown Robert Reid MD March 14, 2015 RX Refill Request Robert Reid MD Jun 25, 2014 RX Fax Failure Robert Reid MD Jul 03, 2014 Triplicate-- Hydrocodone 2 Robert Reid MD Aug 07, 2014 RX Failure Robert Reid MD Aug 13, 2014 cbc Robert Reid MD February 15, 2014 4m f/u Robert Reid MD February 11, 2014 folic fahad Reid MD February 18, 2014 DEXA Robert Reid MD April 27, 2015 Unknown Robert Reid MD April 15, 2015 refill norco 09/10 Robert Reid MD Sep 09, 2014 [place]-- Hydrocodone Robert Reid MD Oct 11, 2014 DEXA Robert Reid MD Jul 24, 2015 Refill- Tramadol Robert Reid MD Sep 03, 2015 Unknown Robert Reid MD Sep 12, 2015 F/U Robert Reid MD Aug 11, 2015 Pt complaint Robert Reid MD April 15, 2015 4m f/u Robert Reid MD December 12, 2014 Unknown Robert Reid MD Jun 12, 2015 F/U Robert Reid MD Jul 10, 2015 Problems Problem Type Condition ICD-9 Code Onset Dates Condition Status Problem Rheumatoid arthritis 714.0 Active Problem Long-term (current) use of other medications - High Risk V58.69 Active Problem Sjogren's Disease 710.2 Active Problem Neutropenia, unspecified 288.00 Active Problem Postmenopausal status (age-related) V49.81 Active Problem Rheumatoid arthritis without rheumatoid factor, multiple sites M06.09 Active Problem Sjogrens syndrome M35.00 Active Problem Lymphopenia D72.810 Active Problem Abnormal Lab Test 796.4 Active Problem Unspecified drug dependence 304.90 Active Problem 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 January 12, 2016 Alcohol Screening: . Points: 0 January 12, 2016 Tobacco Use: . Are you a:: never smoker January 12, 2016 Marital Status: . January 12, 2016 Caffeine: yes. frequency: 48 ounces /day January 12, 2016 Exercise: no. January 12, 2016 Alcohol: no. January 12, 2016 Summary Purpose eClinicalWorks Submission
--- OUTSIDE RECORDS SUMMARY | 2019-06-06 08:39 | XMS REPORT ---
Author Author Eryn Hearn [facility] eClinicalWorks Address Unknown Phone Unavailable Care Team Providers Care Diesel Tractor Engine Mechanic Name Role Phone Eryn Haern Unavailable Allergies, Adverse Reactions, Alerts Substance Reaction Event Type Enbretianna Chavez developed stomach cancer after initiation Drug Allergy Sulfa itching Non Drug Allergy Encounters Encounter Location Date Unknown Robert Reid MD Nov 18, 2014 3 MTH FU Robert Reid MD December 12, 2015 rx refill Robert Reid MD December 15, 2015 Refill- Tramadol, Plaquenil, Prednisone Robert Reid MD December 11, 2015 ARYAA Robert Reid MD February 16, 2015 Research [...] folic fahad Reid MD February 18, 2014 ARYAA Robert Reid MD April 27, 2015 Unknown Robert Reid MD April 15, 2015 refill norco 12/2 Robert Reid MD Sep 09, 2014 Triplicate-- [...] Sjogren's Disease 710.2 Active Problem Rheumatoid arthritis without rheumatoid factor, multiple sites M06.09 Active Problem Sjogrens syndrome M35.00 Active Problem Lymphopenia D72.810 Active Problem Abnormal Lab Test 796.4 Active Problem Unspecified drug dependence 304.90 Active Problem Other lobsterman (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 Z79.899 Active Problem Osteopenia M85.80 Active Assessment Rheumatoid arthritis of multiple sites without rheumatoid factor M06.09 Active Assessment Sjogrens syndrome M35.00 Active Assessment Lymphopenia D72.810 Active Problem Neutropenia, unspecified 288.00 Active Assessment Encounter for long-term (current) use of other high-risk medications Z79.899 Active Problem Postmenopausal status (age-related) V49.81 Active Medications Medication Code System Code Instructions Start Date End Date Status Dosage Iron [facility] [address]-23 65 MG Orally Once a day Active 1 tablet Dicyclomine HCl [facility] [address]-86 10 MG Orally three times a day Active 1 capsule PredniSONE [facility] 70771930836 5 Active TAKE TWO TABLETS BY MOUTH DAILY WITH FOOD Zofran [facility] [address]-65 8 MG Orally Active as needed [place] [facility] [address]-17 10-325 MG Orally three times a day (tid) Jul 23, 2010 Active 1 tablet as needed for pain Multivitamins [facility] [address]-21 Orally Once a day Active 1 tablet Voltaren [facility] [address]-28 1 % Transdermal prn Active as directed Vitamin C [facility] [address]-71 1000 MG Orally Once a day Active 1 tablet Vitamin D-3 [facility] 92586[address] 1000 UNIT Orally Once a day Active 1 capsule Levoxyl [facility] [address]-29 100mg/150mg once a day Active 1 tablet of each Tramadol HCl [facility] [address]-86 50 MG Orally 3 times a day Active Take One Tablet Vitamin D (Ergocalciferol) [facility] 18036233453 50,000 Active TAKE ONE CAPSULE BY MOUTH ONCE WEEKLY Folic Acid [facility] 76295528335 1 Active TAKE TWO TABLETS BY MOUTH TWICE A DAY Plaquenil [facility] [address]-91 200 MG Orally Once a day Active 2 tablet with food or milk Vitamin B12 [facility] [address]-97 Sublingual Once a day Active as directed Calcium Unknown 0 1000 mg orally daily Active one tab Spironolactone [facility] [address]-25 25 MG Orally once a day Active 1 tablet Social History Social History Element Qualifiers Date Reported Diet: no. January 12, 2016 Alcohol Screening: . Points: 0 January 12, 2016 Tobacco Use: . Are you a:: never smoker January 12, 2016 Marital Status: . January 12, 2016 Caffeine: yes. frequency: 48 ounces /day January 12, 2016 Exercise: no. January 12, 2016 Alcohol: no. January 12, 2016 Vital Signs Date/Time: Nov 13, 2015 Weight 195 lbs Height 66 in Temperature 97.8 F Cardiac Monitoring Heart Rate 72 /min Blood Pressure Diastolic 74 mm Hg Blood Pressure Systolic 110 mm Hg Results COMPREHENSIVE METABOLIC PANEL W/EGFR Summary Purpose eClinicalWorks Submission
--- OUTSIDE RECORDS SUMMARY | 2019-06-06 08:39 | XMS REPORT ---
Author Author Eryn Hearn [facility] eClinicalWorks Address Unknown Phone Unavailable Care Team Providers Care Business Intelligence Engineer Name Role Phone Eryn Hearn Unavailable Encounters Encounter Location Date Unknown Robert Reid MD Nov 18, 2014 TYRONE Reid MD February 16, 2015 Research Robert Reid MD March 17, 2015 MRI Bi-hands Robert Reid MD Dec 05, 2014 f/u ji Reid MD February 13, 2015 RX Robert Reid MD Nov 14, 2014 1 mo f/u Robert Reid MD January 13, 2015 ARYAA Robert Reid MD Dec 05, 2014 folic fahad Reid MD December 17, 2014 Unknown Robert Reid MD March 14, 2015 RX Refill Request Robert Reid MD Jun 25, 2014 RX Fax Failure Robert Reid MD Jul 03, 2014 Triplicate-- Hydrocodone 08/11 Robert Reid MD Aug 07, 2014 RX Failure Robert Reid MD Aug 13, 2014 cbc Robert Reid MD February 15, 2014 4m f/u Robert Reid MD February 11, 2014 ramy Reid MD February 18, 2014 TYRONE Reid MD April 27, 2015 Unknown Robert Reid MD April 15, 2015 refill norco /2 Robert Reid MD Sep 09, 2014 Triplicate-- Hydrocodone Robert Reid MD Oct 11, 2014 TYRONE Reid MD Jul 24, 2015 Refill- Tramadol Robert Reid MD Sep 03, 2015 Pt complaint Robert Reid MD April 15, 2015 4m f/u Robert Reid MD December 12, 2014 Unknown Robert Reid MD Jun 12, 2015 F/U Robert Reid MD Jul 10, 2015 Problems Problem Type Condition ICD-9 Code Onset Dates Condition Status Problem Postmenopausal status (age-related) V49.81 Active Problem Sjogren's Disease 710.2 Active Problem Rheumatoid arthritis 714.0 Active Problem Neutropenia, unspecified 288.00 Active Problem Sjogrens syndrome M35.00 Active Problem Other equipment operator intermodal yard (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 Z79.899 Active Problem Rheumatoid arthritis without rheumatoid factor, multiple sites M06.09 Active Problem Unspecified drug dependence 304.90 Active Problem Long-term (current) use of other medications - High Risk V58.69 Active Problem Abnormal Lab Test 796.4 Active Problem Osteoporosis, 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 Aug 11, 2015 Alcohol Screening: . Points: 0 Aug 11, 2015 Tobacco Use: . Are you a:: never smoker Aug 11, 2015 Marital Status: . Aug 11, 2015 Caffeine: yes. frequency: 48 ounces /day Aug 11, 2015 Exercise: no. Aug 11, 2015 Alcohol: no. Aug 11, 2015 Summary Purpose eClinicalWorks Submission
--- OUTSIDE RECORDS SUMMARY | 2019-06-06 08:39 | XMS REPORT ---
Author Author Eryn Hearn [facility] eClinicalWorks Address Unknown Phone Unavailable Care Team Providers Care Senior Clinical Data Analyst Name Role Phone Eryn Hearn Unavailable Allergies, [...] Prednisone Robert Reid MD December 11, 2015 DEXA Robert Reid MD February 16, 2015 Research Robert Reid MD March 17, 2015 1 MTH Robert Reid MD Nov 13, 2015 MRI Bi-hands Robert Reid MD Dec 05, 2014 1 MTH Robert Reid MD January 12, 2016 f/u norco Robert Reid MD February 13, 2015 RX Robert Reid MD Nov 14, 2014 1 mo f/u Robert Reid MD January 13, 2015 DEXA Robert Reid MD Dec 05, 2014 folic fahad Reid MD December 17, 2014 Unknown Roebrt Reid MD March 14, 2015 RX Refill [...] Reid MD Aug 11, 2015 Pt complaint oRbert Reid MD April 15, 2015 4m f/u [...] Unspecified drug dependence 304.90 Active Problem 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.899 Active Problem Osteopenia M85.80 Active Assessment Sjogrens syndrome M35.00 Active Assessment Rheumatoid arthritis without rheumatoid factor, multiple sites M06.09 Active Problem Neutropenia, unspecified 288.00 Active Assessment Other [facility] (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 Z79.899 Active Problem Postmenopausal status (age-related) V49.81 Active Medications Medication Code System Code Instructions Start Date End Date Status Dosage Voltaren [facility] [address]-96 1 % Transdermal prn Active as directed Levoxyl [facility] [address]-80 100mg/150mg once a day Active 1 tablet of each Vitamin B12 [facility] [address]-82 Sublingual Once a day Active as directed Vitamin D (Ergocalciferol) [facility] 65979278462 50,000 Active TAKE ONE CAPSULE BY MOUTH ONCE WEEKLY Multivitamins [facility] [address]-71 Orally Once a day Active 1 tablet Zofran [facility] [address]-44 8 MG Orally Active as needed Folic Acid [facility] 23668852744 1 Active TAKE TWO TABLETS BY MOUTH TWICE A DAY Calcium Unknown 0 1000 mg orally daily Active one tab Vitamin C [facility] [address]-07 1000 MG Orally Once a day Active 1 tablet Plaquenil [facility] [address]-02 200 MG Orally Once a day Active 2 tablet with food or milk Dicyclomine HCl [facility] [address]-91 10 MG Orally three times a day Active 1 capsule Iron [facility] [address]-78 65 MG Orally Once a day Active 1 tablet Tramadol HCl [facility] [address]-21 50 MG Orally 3 times a day March 14, 2016 Active take one tablet [place] [facility] [address]-96 10-325 MG Orally three times a day (tid) Jul 23, 2010 February 11, 2016 Active 1 tablet as needed for pain Vitamin D-3 [facility] 58[address] 1000 UNIT Orally Once a day Active 1 capsule Spironolactone [facility] [address]-21 25 MG Orally once a day Active 1 tablet PredniSONE [facility] 10826360810 5 Orally Once a day January 14, 2016 Active TAKE TWO TABLETS BY MOUTH DAILY WITH FOOD Social History Social History Element Qualifiers Date Reported Diet: no. January 12, 2016 Alcohol Screening: . Points: 0 January 12, 2016 Tobacco Use: . Are you a:: never smoker January 12, 2016 Marital Status: . January 12, 2016 Caffeine: yes. frequency: 48 ounces /day January 12, 2016 Exercise: no. January 12, 2016 Alcohol: no. January 12, 2016 Vital Signs Date/Time: January 12, 2016 Weight 188 lbs Height 66 in Temperature 97.7 F Cardiac Monitoring Heart Rate 72 /min Blood Pressure Diastolic 70 mm Hg Blood Pressure Systolic 118 mm Hg Summary Purpose eClinicalWorks Submission
--- OUTSIDE RECORDS SUMMARY | 2019-06-06 08:39 | XMS REPORT ---
Author Author Robert Reid eClinicalWorks Address Unknown Phone Unavailable Care Team Providers Care Blade Operator Name Role Phone Robert Reid CP [...] Unknown Robert Reid MD Nov 18, 2014 refill norco 09/10 Robert Reid MD Sep 09, 2014 Triplicate-- Hydrocodone Robert Reid MD Oct 11, 2014 DEXA Robert Reid MD February 16, 2015 MRI Bi-hands Robert Reid MD Dec 05, 2014 f/u norco Robert Reid MD February 13, 2015 RX Robert Reid MD Nov 14, 2014 1 mo f/u Robert Reid MD January 13, 2015 DEXA Robert Reid MD Dec 05, 2014 folic acid Robert Reid MD December 17, 2014 Problems Problem Type Condition ICD-9 Code [...] History Element Qualifiers Date Reported Diet: no. February 13, 2015 Alcohol Screening: . Points: 0 February 13, 2015 Tobacco Use: . Are you a:: never smoker February 13, 2015 Marital Status: . February 13, 2015 Caffeine: yes. frequency: 48 ounces /day February 13, 2015 Exercise: no. February 13, 2015 Alcohol: no. February 13, 2015 Summary Purpose eClinicalWorks Submission
--- OUTSIDE RECORDS SUMMARY | 2019-06-06 08:39 | XMS REPORT ---
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 December 12, 2015 Alcohol Screening: . Points: 0 December 12, 2015 Tobacco Use: . Are you a:: never smoker December 12, 2015 Marital Status: . December 12, 2015 Caffeine: yes. frequency: 48 ounces /day December 12, 2015 Exercise: no. December 12, 2015 Alcohol: no. December 12, 2015 Summary Purpose eClinicalWorks Submission
--- OUTSIDE RECORDS SUMMARY | 2019-06-06 08:39 | XMS REPORT ---
Author Author Robert Reid [facility] eClinicalWorks Address Unknown Phone Unavailable Care Team Providers Care Agriculture Research Director Name Role Phone Robert Reid CP Unavailable [...] Hydrocodone Robert Reid MD Oct 11, 2014 Problems Problem Type Condition ICD-9 [...] Start Date End Date Status Dosage [facility] [address]-01 10-325 MG Orally Three times a day Oct 11, 2014 Nov 10, 2014 Active 1 tablet as needed Social History Social History Element Qualifiers Date Reported Tobacco Use: . Are you a:: never smoker Jun 13, 2014 Caffeine: yes. frequency: 32 oz day Jun 13, 2014 Exercise: no. Jun 13, 2014 Alcohol: no. Jun 13, 2014 Summary Purpose eClinicalWorks Submission
--- OUTSIDE RECORDS SUMMARY | 2019-06-06 08:39 | XMS REPORT ---
Author Author Robert Reid eClinicalWorks Address Unknown Phone Unavailable Care Team Providers Care Clerk Manager Name Role Phone Robert Reid CP [...] acid Robert Reid MD February 18, 2014 DEXA Robert [...] Unspecified drug dependence 304.90 Active Problem Other [facility] (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 Z79.899 Active Problem Osteopenia M85.80 Active Assessment Rheumatoid arthritis without rheumatoid factor, multiple sites M06.09 Active Assessment Sjogrens syndrome M35.00 Active Problem Neutropenia, unspecified 288.00 Active Assessment Other [facility] (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 Z79.899 Active Problem Postmenopausal status (age-related) V49.81 Active Medications Medication Code System Code Instructions Start Date End Date Status Dosage Voltaren [facility] [address]-74 1 % Transdermal prn Active as directed Vitamin D-[address] [facility] 65636-60059 1000 UNIT Orally Once a day Active 1 capsule [address]clomine HCl [facility] [address]-88 10 MG Orally three times a day Active [address] [facility] 94589936230 5 Active TAKE TWO TABLETS BY MOUTH DAILY WITH FOOD Multivitamins [facility] [address]-29 Orally Once a day Active [address] [facility] [address]-54 25 MG Orally once a day Active 1 tablet Calcium Unknown 0 1000 mg orally daily Active one tab Vitamin D (Ergocalciferol) [facility] 16287373957 50,000 Active TAKE ONE CAPSULE BY MOUTH ONCE WEEKLY [place] [facility] [address]-83 10-325 MG Orally three times a day (tid) Jul 23, 2010 Active 1 tablet as needed for pain Vitamin C [facility] [address]-39 1000 MG Orally Once a day Active [address] [facility] [address]-40 65 MG Orally Once a day Active [address] [facility] [address]-32 100mg/150mg once a day Active 1 tablet of each Tramadol HCl [facility] [address]-82 50 MG Orally 3 times a day Active take one tablet Vitamin B12 [facility] [address]-52 Sublingual Once a day Active as directed Folic Acid [facility] 49727439248 1 Active TAKE TWO TABLETS BY MOUTH TWICE A DAY Zofran [facility] [address]-85 8 MG Orally Active as needed Plaquenil [facility] [address]-66 200 MG Orally Once a day Active 2 tablet with food or milk Social History Social History Element Qualifiers Date Reported Diet: no. December 12, 2015 Alcohol Screening: . Points: 0 December 12, 2015 Tobacco Use: . Are you a:: never smoker December 12, 2015 Marital Status: . December 12, 2015 Caffeine: yes. frequency: 48 ounces /day December 12, 2015 Exercise: no. December 12, 2015 Alcohol: no. December 12, 2015 Vital Signs Date/Time: December 12, 2015 Weight 197 lbs Height 66 in Temperature 98.1 F Cardiac Monitoring Heart Rate 76 /min Blood Pressure Diastolic 73 mm Hg Blood Pressure Systolic 113 mm Hg Summary Purpose eClinicalWorks Submission
--- OUTSIDE RECORDS SUMMARY | 2019-06-06 08:39 | XMS REPORT ---
Author Author Robert Reid eClinicalWorks Address Unknown Phone Unavailable Care Team Providers Care Health Coach Name Role Phone Robert Reid CP Unavailable Encounters Encounter Location Date Unknown Robert Reid MD Nov 18, 2014 Refill- Tramadol, Plaquenil, Prednisone Robert Reid MD [...] Unspecified drug dependence 304.90 Active Problem Other prison (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 Z79.899 Active Problem Osteopenia M85.80 Active Medications Medication Code System Code Instructions Start Date End Date Status Dosage Plaquenil [facility] [address]-93 200 MG Orally Once a day March 10, 2016 Active 2 tablet with food or milk PredniSONE [facility] 36642931976 5 Orally Once a day March 10, 2016 Active TAKE TWO TABLETS BY MOUTH DAILY WITH FOOD Tramadol HCl [facility] [address]-87 50 MG Orally 3 times a day March 10, 2016 Active Take One Tablet Social History Social History Element Qualifiers Date Reported Diet: no. Nov 13, 2015 Alcohol Screening: . Points: 0 Nov 13, 2015 Tobacco Use: . Are you a:: never smoker Nov 13, 2015 Marital Status: . Nov 13, 2015 Caffeine: yes. frequency: 48 ounces /day Nov 13, 2015 Exercise: no. Nov 13, 2015 Alcohol: no. Nov 13, 2015 Summary Purpose eClinicalWorks Submission
--- OUTSIDE RECORDS SUMMARY | 2019-06-06 08:39 | XMS REPORT ---
Author Author Eryn Hearn [facility] eClinicalWorks Address Unknown Phone Unavailable Care Team Providers Care Armored Car Messenger Name Role Phone Eryn Hearn Unavailable Allergies, [...] MRI Robert Reid MD February 01, 2016 DEXA Robert Reid MD February 16, 2015 1 MTH Robert Reid MD February 16, 2016 Research Robert Reid MD March 17, 2015 [...] Hydrocodone Robert Reid MD Oct 11, 2014 ARYAA Robert Reid MD Jul 24, 2015 Refill- [...] ICD-9 Code Onset Dates Condition Status Problem Long-term (current) use of other medications - High Risk V58.69 Active Problem Abnormal Lab Test 796.4 Active Problem Unspecified drug dependence 304.90 Active Problem Left elbow pain M25.522 Active Problem Lymphopenia D72.810 Active Problem Raynaud disease I73.00 Active Problem Other intermediate (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 Z79.899 Active Problem Osteopenia M85.80 Active Problem Rheumatoid arthritis without rheumatoid factor, multiple sites M06.09 Active Problem Sjogrens syndrome M35.00 Active Assessment Raynaud disease I73.00 Active Assessment Other intermediate (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 Z79.899 Active Assessment Left elbow pain M25.522 Active Problem Neutropenia, unspecified 288.00 Active Problem Postmenopausal status (age-related) V49.81 Active Assessment Sjogrens syndrome M35.00 Active Problem Rheumatoid arthritis 714.0 Active Assessment Rheumatoid arthritis without rheumatoid factor, multiple sites M06.09 Active Problem Sjogren's Disease 710.2 Active Medications Medication Code System Code Instructions Start Date End Date Status Dosage Spironolactone [facility] [address]-65 25 MG Orally once a day Active 1 tablet Voltaren [facility] [address]-35 1 % Transdermal prn Active as directed Dicyclomine HCl [facility] [address]-20 10 MG Orally three times a day Active 1 capsule Tramadol HCl [facility] [address]-73 50 MG Orally 3 times a day March 14, 2016 Active take one tablet Vitamin B12 [facility] [address]-43 Sublingual Once a day Active as directed Vitamin C [facility] [address]-02 1000 MG Orally Once a day Active 1 tablet Iron [facility] [address]-81 65 MG Orally Once a day Active 1 tablet Multivitamins [facility] [address]-08 Orally Once a day Active 1 tablet [place] [facility] [address]-43 10-325 MG Orally every 6 hrs March 17, 2016 Active 1 tablet as needed Vitamin D (Ergocalciferol) [facility] 50228039477 50,000 Active TAKE ONE CAPSULE BY MOUTH ONCE WEEKLY Levoxyl [facility] [address]-71 100mg/150mg once a day Active 1 tablet of each Folic Acid [facility] 28650389852 1 Active TAKE TWO TABLETS BY MOUTH TWICE A DAY Calcium Unknown 0 1000 mg orally daily Active one tab Vitamin D-3 [facility] 36[address] 1000 UNIT Orally Once a day Active 1 capsule Zofran [facility] [address]-65 8 MG Orally Active as needed Plaquenil [facility] [address]-76 200 MG Orally Once a day Active 2 tablet with food or milk Social History Social History Element Qualifiers Date Reported Diet: no. February 16, 2016 Alcohol Screening: . Points: 0 February 16, 2016 Tobacco Use: . Are you a:: never smoker February 16, 2016 Marital Status: . February 16, 2016 Caffeine: yes. frequency: 48 ounces /day February 16, 2016 Exercise: no. February 16, 2016 Alcohol: no. February 16, 2016 Vital Signs Date/Time: February 16, 2016 Weight 199 lbs Height 66 in Temperature 98.3 F Cardiac Monitoring Heart Rate 72 /min Blood Pressure Diastolic 70 mm Hg Blood Pressure Systolic 122 mm Hg Results COMPREHENSIVE METABOLIC PANEL W/EGFR Summary Purpose eClinicalWorks Submission
--- OUTSIDE RECORDS SUMMARY | 2019-06-06 08:39 | XMS REPORT ---
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 Drug Allergy Sulfa itching Non Drug Allergy Encounters Encounter Location Date Unknown Robert Reid MD Nov 18, 2014 [place] Robert Reid MD February 16, 2015 [...] acid Robert Reid MD February 18, 2014 TYRONE Reid [...] Active Problem Rheumatoid arthritis 714.0 Active Problem Sjogrens syndrome M35.00 Active Problem Other halfway (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 Z79.899 Active Problem Rheumatoid arthritis without rheumatoid factor, multiple sites M06.09 Active Problem Unspecified drug dependence 304.90 Active Problem Long-term (current) use of other medications - High Risk V58.69 Active Problem Osteopenia M85.80 Active Problem Abnormal Lab Test 796.4 Active Assessment Osteopenia M85.80 Active Assessment Other terminal gauger supervisor (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 Z79.899 Active Assessment Sjogrens syndrome M35.00 Active Assessment Drug dependence F19.20 Active Assessment Rheumatoid arthritis without rheumatoid factor, multiple sites M06.09 Active Assessment Influenza vaccine administered Z23 Active Problem Neutropenia, unspecified 288.00 Active Medications Medication Code System Code Instructions Start Date End Date Status Dosage PredniSONE [facility] 01810128787 5 Active TAKE ONE TABLET BY MOUTH ONCE A DAY WITH FOOD Spironolactone [facility] [address]-04 25 MG Orally once a day Active 1 tablet Vitamin D (Ergocalciferol) [facility] 42138526480 50,000 Active TAKE ONE CAPSULE BY MOUTH ONCE WEEKLY Dicyclomine HCl [facility] [address]-59 10 MG Orally three times a day Active 1 capsule Vitamin C [facility] [address]-25 1000 MG Orally Once a day Active 1 tablet Hydrocodone-Acetaminophen [facility] [address]-45 10-325 MG Orally three times a day Sep 10, 2015 Active 1 tablet as needed Vitamin D-3 [facility] 62291-[address] 1000 UNIT Orally Once a day Active 1 capsule Vitamin B12 [facility] [address]-59 Sublingual Once a day Active as directed Calcium Unknown 0 1000 mg orally daily Active one tab Iron [facility] [address]-46 65 MG Orally Once a day Active 1 tablet Levoxyl [facility] [address]-41 100mg/150mg once a day Active 1 tablet of each Folic Acid [facility] 77542263762 1 Active TAKE TWO TABLETS BY MOUTH TWICE A DAY Voltaren [facility] [address]-71 1 % Transdermal Active as directed Zofran [facility] [address]-52 8 MG Orally Active as needed Multivitamins [facility] [address]-49 Orally Once a day Active 1 tablet Plaquenil [facility] [address]-03 200 MG Orally Once a day Active 2 tablet with food or milk Tramadol HCl [facility] [address]-73 50 MG Orally 3 times a day Active Take One Tablet Zovia /35E (28) [facility] [address]-05 once a day Active 1 tablet Social History Social History Element Qualifiers Date Reported Diet: no. Nov 13, 2015 Alcohol Screening: . Points: 0 Nov 13, 2015 Tobacco Use: . Are you a:: never smoker Nov 13, 2015 Marital Status: . Nov 13, 2015 Caffeine: yes. frequency: 48 ounces /day Nov 13, 2015 Exercise: no. Nov 13, 2015 Alcohol: no. Nov 13, 2015 Vital Signs Date/Time: Aug 11, 2015 Weight 199 lbs Height 66 in Temperature 97.6 F Cardiac Monitoring Heart Rate 78 /min Blood Pressure Diastolic 76 mm Hg Blood Pressure Systolic 110 mm Hg Immunizations Vaccine Administration Date Flu Vaccine Aug 11, 2015 Summary Purpose eClinicalWorks Submission
--- OUTSIDE RECORDS SUMMARY | 2019-06-06 08:39 | XMS REPORT ---
Author Author Robert Reid eClinicalWorks Address Unknown Phone Unavailable Care Team Providers Care Full Time Paramedic Name Role Phone Robert Reid CP Unavailable [...] ICD-9 Code Onset Dates Condition Status Assessment Sjogren's Disease 710.2 Active Problem Neutropenia, unspecified 288.00 Active Assessment Rheumatoid arthritis 714.0 Active Assessment Long-term (current) use of other [...] Date End Date Status Dosage Vitamin B12 [facility] [address]-07 Sublingual Once a day Active as directed Dicyclomine HCl [facility] [address]-93 10 MG Orally three times a day Active 1 capsule Spironolactone [facility] [address]-62 25 MG Orally Twice a day Active 1 tablet Vitamin D (Ergocalciferol) [facility] 21111897937 50,000 Active TAKE ONE CAPSULE BY MOUTH ONCE WEEKLY Zofran [facility] [address]-68 8 MG Orally Active as needed Multivitamins [facility] [address]-69 Orally Once a day Active 1 tablet Tramadol HCl [facility] [address]-23 50 MG Orally Three Times a day Jul 03, 2014 Active Take One Tablet Vitamin D-3 [facility] 66251-88540 1000 UNIT Orally Once a day Active 1 capsule Zovia 1/35E (28) [facility] [address]-48 once a day Active 1 tablet PredniSONE [facility] [address]-33 5 MG Orally Once a day Active take two ablets by mouth every day with food Iron [facility] [address]-20 65 MG Orally Once a day Active 2 tablets Folic Acid [facility] 85604089365 1 Active TAKE TWO TABLETS BY MOUTH TWICE A DAY Plaquenil [facility] [address]-02 200 MG Orally Once a day Active 2 tablet with food or milk Hydrocodone-Acetaminophen [facility] [address]-77 10-325 MG Orally three times a day Active 1 tablet as needed Levoxyl [facility] [address]-63 100mg/150mg once a day Active 1 tablet of each Social History Social History Element Qualifiers Date Reported Diet: no. February 13, 2015 Alcohol Screening: . Points: 0 February 13, 2015 Tobacco Use: . Are you a:: never smoker February 13, 2015 Marital Status: . February 13, 2015 Caffeine: yes. frequency: 48 ounces /day February 13, 2015 Exercise: no. February 13, 2015 Alcohol: no. February 13, 2015 Vital Signs Date/Time: February 13, 2015 Weight 203 lbs Height 66 in Temperature 98.4 F Cardiac Monitoring Heart Rate 84 /min Blood Pressure Diastolic 72 mm Hg Blood Pressure Systolic 114 mm Hg Results CBC (INCLUDES DIFF/PLT) NEUTROPHILS(- %) 89.7 ABSOLUTE BASOPHILS(-0-200 cells/uL) 0 MONOCYTES(- %) 3.0 LYMPHOCYTES(- %) 7.2 PLATELET COUNT(-140-400 Thousand/uL) 148 BASOPHILS(- %) 0.0 RDW(-11.0-15.0 %) 13.8 EOSINOPHILS(- %) 0.1 MCHC(-32.0-36.0 g/dL) 33.4 MCH(-27.0-33.0 pg) 33.6 MCV(-80.0-100.0 fL) 100.5 ABSOLUTE LYMPHOCYTES(-850-3900 cells/uL) 446 ABSOLUTE NEUTROPHILS(-3133-7387 cells/uL) 5561 ABSOLUTE EOSINOPHILS(-15-500 cells/uL) 6 ABSOLUTE MONOCYTES(-200-950 cells/uL) 186 WHITE BLOOD CELL COUNT(-3.8-10.8 Thousand/uL) 6.2 RED BLOOD CELL COUNT(-3.80-5.10 Million/uL) 3.72 HEMOGLOBIN(-11.7-15.5 g/dL) 12.5 HEMATOCRIT(-35.0-45.0 %) 37.4 Summary Purpose eClinicalWorks Submission
--- OUTSIDE RECORDS SUMMARY | 2019-06-06 08:39 | XMS REPORT ---
Author Author Nilson Brannon [facility] eClinicalWorks Address Unknown Phone Unavailable Care Team Providers Care Human Resources Benefits Coordinator Name Role Phone Nilson Brannon CP Unavailable Allergies, Adverse Reactions, Alerts Substance [...] Hydrocodone Robert Reid MD Oct 11, 2014 RX Robert Reid MD Nov 14, 2014 DEXA Robert Reid MD Dec 05, 2014 folic acid Robert Reid MD December 17, 2014 Problems Problem Type Condition ICD-9 Code Onset Dates Condition Status Assessment Rheumatoid arthritis 714.0 Active Problem Neutropenia, unspecified 288.00 Active Assessment Sjogren's Disease 710.2 Active Problem Osteoporosis, 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 Active Problem Unspecified drug dependence 304.90 Active Problem Abnormal Lab Test 796.4 Active Problem Rheumatoid arthritis 714.0 Active Problem Postmenopausal status (age-related) V49.81 Active Problem Long-term (current) use of other medications - High Risk V58.69 Active Problem Sjogren's Disease 710.2 Active Medications Medication Code System Code Instructions Start Date End Date Status Dosage Zovia E (28) [facility] [address]-01 once a day Active 1 tablet Folic Acid [facility] 32051134458 1 Active TAKE TWO TABLETS BY MOUTH TWICE A DAY Hydrocodone-Acetaminophen [facility] [address]-41 10-325 MG Orally three times a day Active 1 tablet as needed Hydroxychloroquine Sulfate [facility] 46452861498 200 Active TAKE TWO TABLETS BY MOUTH EVERY DAY WITH FOOD OR DRINK Levoxyl [facility] [address]-30 100mg/150mg once a day Active 1 tablet of each Vitamin B12 [facility] [address]-20 Sublingual Once a day Active as directed PredniSONE [facility] 24098429055 5 Active TAKE ONE TABLET BY MOUTH EVERY DAY WITH FOOD Dicyclomine HCl [facility] [address]-61 10 MG Orally three times a day Active 1 capsule Amoxicillin [facility] [address]-30 500 MG Orally Three times a day Nov 14, 2014 Nov 21, 2014 Active 1 capsule Multivitamins [facility] [address]-33 Orally Once a day Active 1 tablet Tramadol HCl [facility] [address]-76 50 MG Orally Three Times a day Jul 03, 2014 Active Take One Tablet Zofran [facility] [address]-96 8 MG Orally Active as needed Iron [facility] [address]-31 65 MG Orally Once a day Active 2 tablets Social History Social History Element Qualifiers Date Reported Alcohol Screening: . Points: 0 December 12, 2014 Tobacco Use: . Are you a:: never smoker December 12, 2014 Caffeine: yes. frequency: 48 ounces /day December 12, 2014 Exercise: no. December 12, 2014 Alcohol: no. December 12, 2014 Vital Signs Date/Time: Nov 14, 2014 Weight 204 lbs Height 66 in Temperature 98.6 F Cardiac Monitoring Heart Rate 74 /min Blood Pressure Diastolic 82 mm Hg Blood Pressure Systolic 116 mm Hg Summary Purpose eClinicalWorks Submission
--- OUTSIDE RECORDS SUMMARY | 2019-06-06 08:39 | XMS REPORT ---
Author Author Eryn Hearn [facility] eClinicalWorks Address Unknown Phone Unavailable Care Team Providers Care First Press Operator Name Role Phone Eryn Hearn Unavailable [...] f/u Robert Reid MD January 13, 2015 Unknown Robert Reid MD Jun 12, 2015 DEXA Robert Reid MD Dec 05, [...] Start Date End Date Status Dosage PredniSONE [facility] 32932663536 5 Active TAKE ONE TABLET BY MOUTH ONCE A DAY WITH FOOD Folic Acid [facility] 31618781712 1 mg Active TAKE TWO TABLETS BY MOUTH TWICE A DAY Vitamin D (Ergocalciferol) [facility] 57375334199 50,000 Active TAKE ONE CAPSULE BY MOUTH ONCE WEEKLY Vitamin C [facility] [address]-71 1000 MG Orally Once a day Active 1 tablet Zofran [facility] [address]-18 8 MG Orally Active as needed Hydrocodone-Acetaminophen [facility] [address]-35 10-325 MG Orally three times a day Jul 12, 2015 Active 1 tablet as needed Zovia /35E (28) [facility] [address]-71 once a day Active 1 tablet Iron [facility] [address]-21 65 MG Orally Once a day Active 1 tablet Dicyclomine HCl [facility] [address]-26 10 MG Orally three times a day Active 1 capsule Vitamin B12 [facility] [address]-54 Sublingual Once a day Active as directed Vitamin D-3 [facility] 213[address] 1000 UNIT Orally Once a day Active 1 capsule Spironolactone [facility] [address]-72 25 MG Orally once a day Active 1 tablet Multivitamins [facility] [address]-79 Orally Once a day Active 1 tablet Levoxyl [facility] [address]-79 100mg/150mg once a day Active 1 tablet of each Plaquenil [facility] [address]-13 200 MG Orally Once a day Active 2 tablet with food or milk Tramadol HCl [facility] [address]-66 50 MG Orally 3 times a day Active Take One Tablet Voltaren [facility] [address]-06 1 % Transdermal Active as directed Social History Social History Element Qualifiers Date Reported Diet: no. Jun 12, 2015 Alcohol Screening: . Points: 0 Jun 12, 2015 Tobacco Use: . Are you a:: never smoker Jun 12, 2015 Marital Status: . Jun 12, 2015 Caffeine: yes. frequency: 48 ounces /day Jun 12, 2015 Exercise: no. Jun 12, 2015 Alcohol: no. Jun 12, 2015 Vital Signs Date/Time: Jun 12, 2015 Weight 206 lbs Height 66 in Temperature 98.2 F Cardiac Monitoring Heart Rate 72 /min Blood Pressure Diastolic 80 mm Hg Blood Pressure Systolic 124 mm Hg Summary Purpose eClinicalWorks Submission
--- OUTSIDE RECORDS SUMMARY | 2019-06-06 08:39 | XMS REPORT ---
Author Author Robert Reid eClinicalWorks Address Unknown Phone Unavailable Care Team Providers Care Inspector Exhaust Emissions Name Role Phone Robert Reid CP Unavailable [...] Unknown Robert Reid MD Sep 12, 2015 Pt complaint Robert Reid MD April [...] Problem Sjogrens syndrome M35.00 Active Problem Other general teller (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 Z79.899 Active Problem Rheumatoid arthritis without rheumatoid factor, multiple sites M06.09 Active Problem Unspecified drug dependence 304.90 Active Problem Long-term (current) use of other medications - High Risk V58.69 Active Problem Osteopenia M85.80 Active Problem Abnormal Lab Test 796.4 Active Assessment Other detention (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 Z79.899 Active Assessment Rheumatoid arthritis without rheumatoid factor, multiple sites M06.09 Active Assessment Sjogrens syndrome M35.00 Active Problem Neutropenia, unspecified 288.00 Active Medications Medication Code System Code Instructions Start Date End Date Status Dosage Folic Acid [facility] 58841228073 1 Active TAKE TWO TABLETS BY MOUTH TWICE A DAY Plaquenil [facility] [address]-23 200 MG Orally Once a day Active 2 tablet with food or milk PredniSONE [facility] 98764163358 5 Active TAKE ONE TABLET BY MOUTH ONCE A DAY WITH FOOD Multivitamins [facility] [address]-92 Orally Once a day Active 1 tablet Zovia /35E (28) [facility] [address]-42 once a day Active 1 tablet Hydroxychloroquine Sulfate [facility] 26925425329 200 Active TAKE TWO TABLETS BY MOUTH DAILY WITH FOOD OR DRINK Vitamin B12 [facility] [address]-94 Sublingual Once a day Active as directed Vitamin D-3 [facility] 04758-97793 1000 UNIT Orally Once a day Active 1 capsule Tramadol HCl [facility] [address]-04 50 MG Orally 3 times a day Active Take One Tablet Calcium Unknown 0 1000 mg orally daily Active one tab Dicyclomine HCl [facility] [address]-45 10 MG Orally three times a day Active 1 capsule Iron [facility] [address]-04 65 MG Orally Once a day Active 1 tablet Vitamin C [facility] [address]-39 1000 MG Orally Once a day Active 1 tablet Hydrocodone-Acetaminophen [facility] [address]-63 10-325 MG Orally three times a day Active 1 tablet as needed Levoxyl [facility] [address]-36 100mg/150mg once a day Active 1 tablet of each Vitamin D (Ergocalciferol) [facility] 90131019670 50,000 Active TAKE ONE CAPSULE BY MOUTH ONCE WEEKLY Spironolactone [facility] [address]-05 25 MG Orally once a day Active 1 tablet Voltaren [facility] [address]-33 1 % Transdermal Active as directed Zofran [facility] [address]-47 8 MG Orally Active as needed Social History Social History Element Qualifiers Date Reported Diet: no. Sep 12, 2015 Alcohol Screening: . Points: 0 Sep 12, 2015 Tobacco Use: . Are you a:: never smoker Sep 12, 2015 Marital Status: . Sep 12, 2015 Caffeine: yes. frequency: 48 ounces /day Sep 12, 2015 Exercise: no. Sep 12, 2015 Alcohol: no. Sep 12, 2015 Vital Signs Date/Time: Sep 12, 2015 Weight 206 lbs Height 66 in Temperature 98.1 F Cardiac Monitoring Heart Rate 76 /min Blood Pressure Diastolic 72 mm Hg Blood Pressure Systolic 112 mm Hg Summary Purpose eClinicalWorks Submission
--- OUTSIDE RECORDS SUMMARY | 2019-06-06 08:40 | XMS REPORT ---
Author Author Robert Reid eClinicalWorks Address Unknown Phone Unavailable Care Team Providers Care Bisque Placer Name Role Phone Robert Reid CP Unavailable [...] f/u Robert Reid MD January 13, 2015 1mth follow up Robert Reid MD March 19, 2016 DEXA Robert Reid MD Dec 05, 2014 folic acid Robert Reid MD December 17, 2014 Unknown Robert Reid MD March 14, 2015 RX Refill Request oRbert Reid MD Jun 25, 2014 RX Fax [...] Problem Raynaud disease I73.00 Active Problem Other registered dietitian (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 Z79.899 Active Problem Osteopenia M85.80 Active Problem Rheumatoid arthritis without rheumatoid factor, multiple sites M06.09 Active Problem Sjogrens syndrome M35.00 Active Assessment Other custodial (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 Z79.899 Active Assessment Raynaud disease I73.00 Active Problem Neutropenia, unspecified 288.00 Active Problem Postmenopausal status (age-related) V49.81 Active Assessment Sjogrens syndrome M35.00 Active Problem Rheumatoid arthritis 714.0 Active Assessment Rheumatoid arthritis without rheumatoid factor, multiple sites M06.09 Active Problem Sjogren's Disease 710.2 Active Medications Medication Code System Code Instructions Start Date End Date Status Dosage Multivitamins [facility] [address]-17 Orally Once a day Active 1 tablet Dicyclomine HCl [facility] [address]-71 10 MG Orally three times a day Active 1 capsule Folic Acid [facility] 56678011989 1 Active TAKE TWO TABLETS BY MOUTH TWICE A DAY Zofran [facility] [address]-01 8 MG Orally Active as needed Vitamin C [facility] [address]-96 1000 MG Orally Once a day Active 1 tablet Levoxyl [facility] [address]-22 100mg/150mg once a day Active 1 tablet of each Vitamin D (Ergocalciferol) [facility] 07956613589 50,000 Active TAKE ONE CAPSULE BY MOUTH ONCE WEEKLY Plaquenil [facility] [address]-76 200 MG Orally Once a day Active 2 tablet with food or milk [place] [facility] [address]-02 10-325 MG Orally every 8 hours April 18, 2016 Active 1 tablet as needed Voltaren [facility] [address]-04 1 % Transdermal prn Active as directed Calcium Unknown 0 1000 mg orally daily Active one tab Spironolactone [facility] [address]-37 25 MG Orally once a day Active 1 tablet Amlodipine Besylate [facility] [address]-38 5 MG Orally Once a day Active 1 tablet Vitamin B12 [facility] [address]-77 Sublingual Once a day Active as directed Iron [facility] [address]-80 65 MG Orally Once a day Active 1 tablet Vitamin D-3 [facility] 24023-[address] 1000 UNIT Orally Once a day Active 1 capsule Social History Social History Element Qualifiers Date Reported Diet: no. March 19, 2016 Alcohol Screening: . Points: 0 March 19, 2016 Tobacco Use: . Are you a:: never smoker March 19, 2016 Marital Status: . March 19, 2016 Caffeine: yes. frequency: 48 ounces /day March 19, 2016 Exercise: no. March 19, 2016 Alcohol: no. March 19, 2016 Vital Signs Date/Time: March 19, 2016 Weight 196.9 lbs Height 66 in Temperature 96.6 F Cardiac Monitoring Heart Rate 72 /min Blood Pressure Diastolic 72 mm Hg Blood Pressure Systolic 112 mm Hg Summary Purpose eClinicalWorks Submission
--- OUTSIDE RECORDS SUMMARY | 2019-06-06 08:40 | XMS REPORT ---
Author Author Robert Reid eClinicalWorks Address Unknown Phone Unavailable Care Team Providers Care Transaction Manager Name Role Phone Robert Reid CP Unavailable Encounters Encounter Location Date Unknown Robert Reid MD Nov 18, 2014 3 MTH FU Robert Reid MD December 12, 2015 rx refill Robert Reid MD December 15, 2015 Refill- Tramadol, Plaquenil, Prednisone Robert Reid MD December 11, 2015 MRI Robert Reid MD February 01, 2016 TYRONE Reid MD February 16, 2015 1 MTH FU Robert Reid MD February 16, 2016 Research Robert Reid MD March 17, 2015 1 MTH FU Robert Reid MD Nov 13, 2015 MRI Bi-hands Robert Reid MD Dec 05, 2014 1 MTH FU Robert Reid MD January 12, 2016 f/u norco Robert Reid MD February 13, 2015 CLARIFICATION Robert Reid MD May 14, 2016 RX Robert Reid MD Nov 14, 2014 1 mo f/u Robert Reid MD January 13, 2015 1mth follow up Robert Reid MD March 19, 2016 DEXA Robert Reid MD Dec 05, 2014 Refill- Tramadol Robert Reid MD May 05, 2016 folic acid Robert Reid MD December 17, [...] Problem Raynaud disease I73.00 Active Problem Other fci (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 Z79.899 Active Problem Osteopenia M85.80 Active Problem Rheumatoid arthritis without rheumatoid factor, multiple sites M06.09 Active Problem Sjogrens syndrome M35.00 Active Problem Neutropenia, unspecified 288.00 Active Problem Postmenopausal status (age-related) V49.81 Active Problem Rheumatoid arthritis 714.0 Active Problem Sjogren's Disease 710.2 Active Medications Medication Code System Code Instructions Start Date End Date Status Dosage Tramadol Unknown 0 50 mg orally 4 - 6 hours as needed Active one tab Social History Social History Element Qualifiers Date Reported Alcohol Screening: . Points: 0 April 15, 2016 Tobacco Use: . Are you a:: never smoker April 15, 2016 Marital Status: . April 15, 2016 Caffeine: yes. frequency: , 1-5 April 15, 2016 Exercise: no. April 15, 2016 Alcohol: no. April 15, 2016 Summary Purpose eClinicalWorks Submission
--- OUTSIDE RECORDS SUMMARY | 2019-06-06 08:40 | XMS REPORT ---
Author Author Eryn Hearn [facility] eClinicalWorks Address Unknown Phone Unavailable Care Team Providers Care Solid Waste Engineer Name Role Phone Eryn Hearn Unavailable [...] Unknown Robert Reid MD April 15, 2015 1 MTH FU Robert Reid MD May 17, 2016 refill norco 2 Robert Reid MD Sep 09, 2014 1 MTH FU Robert Reid MD April 15, 2016 Triplicate-- Hydrocodone Robert Reid MD Oct 11, 2014 1mth follow up Robert Reid MD Jun 17, 2016 MRI Robert Reid MD Jun 17, 2016 1 MTH FU Robert Reid MD Jul 19, 2016 DEXA Robert Reid MD Jul 24, 2015 [...] ICD-9 Code Onset Dates Condition Status Problem Unspecified drug dependence 304.90 Active Problem Osteopenia M85.80 Active Problem Abnormal Lab Test 796.4 Active Problem Raynaud disease I73.00 Active Problem Left elbow pain M25.522 Active Problem Chronic prescription opiate use Z79.891 Active Problem Sjogrens syndrome M35.00 Active Problem Other lacquerer (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 Z79.899 Active Problem Lymphopenia D72.810 Active Problem Rheumatoid arthritis without rheumatoid factor, multiple sites M06.09 Active Assessment Need for prophylactic vaccination and inoculation against influenza Z23 Active Assessment Other lacquerer (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 Z79.899 Active Problem Postmenopausal status (age-related) V49.81 Active Problem Rheumatoid arthritis 714.0 Active Assessment Rheumatoid arthritis without rheumatoid factor, multiple sites M06.09 Active Problem Sjogren's Disease 710.2 Active Problem Neutropenia, unspecified 288.00 Active Problem Long-term (current) use of other medications - High Risk V58.69 Active Medications Medication Code System Code Instructions Start Date End Date Status Dosage PredniSONE [facility] 08710497866 5 MG Active Take 2 tablets by mouth once a day with food Vitamin C [facility] [address]-74 1000 MG Orally Once a day Active 1 tablet Iron [facility] [address]-72 65 MG Orally Once a day Active 1 tablet Vitamin D (Ergocalciferol) [facility] 82464540505 50,000 Active TAKE ONE CAPSULE BY MOUTH ONCE WEEKLY Zofran [facility] [address]-71 8 MG Orally Active as needed Levoxyl [facility] [address]-73 100mg/150mg once a day Active 1 tablet of each Folic Acid [facility] 57540963144 1 Active TAKE TWO TABLETS BY MOUTH TWICE A DAY Dicyclomine HCl [facility] [address]-43 10 MG Orally three times a day Active 1 capsule Multivitamins [facility] [address]-00 Orally Once a day Active 1 tablet Voltaren [facility] [address]-77 1 % Transdermal Four times a day as needed December 14, 2016 Active as directed Advil [facility] [address]-33 Orally as needed Active 1 tablet as needed Vitamin D-3 [facility] 70[address]1978 1000 UNIT Orally Once a day Active 1 capsule Spironolactone [facility] [address]-04 25 MG Orally once a day Active 1 tablet Hydrocodone-Acetaminophen [facility] [address]-14 10-325 MG Orally three times a day Aug 18, 2016 Active 1 tablet as needed Vitamin B12 [facility] [address]-37 Sublingual Once a day Active as directed Tramadol Unknown 0 50 mg orally 4 - 6 hours as needed Active one tab Plaquenil [facility] [address]-86 200 MG Orally Once a day Active take 2 tablets with food or milk once a day orally Calcium Unknown 0 1000 mg orally daily Active one tab Social History Social History Element Qualifiers Date Reported Alcohol Screening: . Points: 0 Jul 19, 2016 Tobacco Use: . Are you a:: never smoker Jul 19, 2016 Marital Status: . Jul 19, 2016 Caffeine: yes. frequency: , 1-5 Jul 19, 2016 Exercise: no. Jul 19, 2016 Alcohol: no. Jul 19, 2016 Vital Signs Date/Time: Jul 19, 2016 Weight 196 lbs Height 66 in Temperature 97.9 F Cardiac Monitoring Heart Rate 72 /min Blood Pressure Diastolic 68 mm Hg Blood Pressure Systolic 116 mm Hg Immunizations Vaccine Administration Date Flu Vaccine Jul 19, 2016 Summary Purpose eClinicalWorks Submission
--- OUTSIDE RECORDS SUMMARY | 2019-06-06 08:40 | XMS REPORT ---
Author Author Robert Reid eClinicalWorks Address Unknown Phone Unavailable Care Team Providers Care Gut Puller Name Role Phone Robert Reid CP Unavailable [...] MD January 13, 2015 1mth follow up Rboert Reid MD March 19, 2016 DEXA Robert [...] Reid MD May 17, 2016 refill norco 09/10 Robert Reid MD Sep 09, 2014 1 MTH FU Robert Reid MD April 15, 2016 Triplicate-- Hydrocodone Robert Reid MD Oct 11, 2014 1mth follow up Robert Reid MD Jun 17, 2016 MRI Robert Reid MD Jun 17, 2016 1 MTH Robert Reid MD Jul 19, 2016 DEXA Robert Reid MD Jul 24, 2015 1 [facility] Robert Reid MD Aug 18, 2016 Refill- Tramadol Robert Reid MD Sep 03, 2015 1 MTH Robert Reid MD Sep 16, 2016 Unknown Robert Reid MD Sep 12, 2015 Records Robert Reid MD Oct 15, 2016 F/U Robert Reid MD Aug 11, 2015 1 [facility] Robert Reid MD Oct 15, 2016 Pt complaint Robert Reid MD April 15, 2015 4m f/u Robert Reid MD December 12, 2014 Unknown Robert Reid MD Jun 12, 2015 F/U Robert Reid MD Jul 10, 2015 Problems Problem Type Condition ICD-9 Code Onset Dates Condition Status Assessment Raynaud disease I73.00 Active Problem Osteopenia M85.80 Active Assessment Rheumatoid [...] Start Date End Date Status Dosage Vitamin C [facility] [address]-60 1000 MG Orally Once a day Active 1 tablet Voltaren [facility] [address]-67 1 % Transdermal Four times a day as needed Active as directed PredniSONE [facility] 10696637729 5 MG Orally Once a day Active take 2 tablets by mouth once a day with food Zofran [facility] [address]-36 8 MG Orally Active as needed Folic Acid [facility] 88414214200 1 Active TAKE TWO TABLETS BY MOUTH TWICE A DAY Hydrocodone-Acetaminophen [facility] [address]-41 10-325 MG Orally three times a day Active 1 tablet as needed Advil [facility] [address]-84 Orally as needed Active 1 tablet as needed Vitamin B12 [facility] [address]-71 Sublingual Once a day Active as directed Multivitamins [facility] [address]-06 Orally Once a day Active 1 tablet Levoxyl [facility] [address]-30 100mg/150mg once a day Active 1 tablet of each Vitamin D-3 [facility] 22988-61321 1000 UNIT Orally Once a day Active 1 capsule Vitamin D (Ergocalciferol) [facility] 40784676975 50,000 Active TAKE ONE CAPSULE BY MOUTH ONCE WEEKLY Plaquenil [facility] [address]-73 200 MG Active TAKE 2 TABLETS WITH FOOD OR MILK ONCE A DAY Dicyclomine HCl [facility] [address]-01 10 MG Orally three times a day Active 1 capsule Calcium Unknown 0 1000 mg orally daily Active one tab Tramadol Unknown 0 50 mg orally 4 - 6 hours as needed Active one tab Spironolactone [facility] [address]-28 25 MG Orally once a day Active 1 tablet Iron [facility] [address]-45 65 MG Orally Once a day Active 1 tablet Social History Social History Element Qualifiers Date Reported Alcohol Screening: . Points: 0 Oct 15, 2016 Tobacco Use: . Are you a:: never smoker Oct 15, 2016 Marital Status: . Oct 15, 2016 Caffeine: yes. frequency: , 1-5 Oct 15, 2016 Exercise: no. Oct 15, 2016 Alcohol: no. Oct 15, 2016 Vital Signs Date/Time: Oct 15, 2016 Weight 195 lbs Height 65 in Temperature 97.9 F Cardiac Monitoring Heart Rate 70 /min Blood Pressure Diastolic 68 mm Hg Blood Pressure Systolic 112 mm Hg Summary Purpose eClinicalWorks Submission
--- OUTSIDE RECORDS SUMMARY | 2019-06-06 08:40 | XMS REPORT ---
Author Author Eryn Hearn [facility] eClinicalWorks Address Unknown Phone Unavailable Care Team Providers Care Superintendent Building Name Role Phone Eryn Hearn Unavailable Allergies, [...] /2 Robert Reid MD Sep 09, 2014 1 [...] Problem Raynaud disease I73.00 Active Problem Other longterm (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 Z79.899 Active Problem Osteopenia M85.80 Active Problem Rheumatoid arthritis without rheumatoid factor, multiple sites M06.09 Active Problem Sjogrens syndrome M35.00 Active Assessment Raynaud disease I73.00 Active Assessment Other adjunct faculty for medical terminology (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 Z79.899 Active Problem Neutropenia, unspecified 288.00 Active Problem Postmenopausal status (age-related) V49.81 Active Assessment Sjogrens syndrome M35.00 Active Problem Rheumatoid arthritis 714.0 Active Assessment Rheumatoid arthritis without rheumatoid factor, multiple sites M06.09 Active Problem Sjogren's Disease 710.2 Active Medications Medication Code System Code Instructions Start Date End Date Status Dosage Levoxyl [facility] [address]-19 100mg/150mg once a day Active 1 tablet of each Iron [facility] [address]-66 65 MG Orally Once a day Active 1 tablet Amlodipine Besylate [facility] [address]-42 5 MG Orally Once a day Active 1 tablet Folic Acid [facility] 78204097162 1 Active TAKE TWO TABLETS BY MOUTH TWICE A DAY Multivitamins [facility] [address]-87 Orally Once a day Active 1 tablet Tramadol Unknown 0 50 mg orally 4 - 6 hours as needed Active one tab Dicyclomine HCl [facility] [address]-95 10 MG Orally three times a day Active 1 capsule Vitamin D (Ergocalciferol) [facility] 03573193624 50,000 Active TAKE ONE CAPSULE BY MOUTH ONCE WEEKLY [employer] [facility] [address]-45 10-325 MG Orally every 8 hours May 15, 2016 Active 1 tablet as needed Spironolactone [facility] [address]-90 25 MG Orally once a day Active 1 tablet Voltaren [facility] [address]-59 1 % Transdermal prn Active as directed Vitamin B12 [facility] [address]-64 Sublingual Once a day Active as directed Calcium Unknown 0 1000 mg orally daily Active one tab Plaquenil [facility] [address]-51 200 MG Orally Once a day Active 2 tablet with food or milk PredniSONE Unknown 0 5 MG Orally Once a day Active 2 tablets Zofran [facility] [address]-43 8 MG Orally Active as needed Vitamin D-3 [facility] 72900-70860 1000 UNIT Orally Once a day Active 1 capsule Vitamin C [facility] [address]-21 1000 MG Orally Once a day Active 1 tablet Social History Social History Element Qualifiers Date Reported Alcohol Screening: . Points: 0 May 17, 2016 Tobacco Use: . Are you a:: never smoker May 17, 2016 Marital Status: . May 17, 2016 Caffeine: yes. frequency: , 1-5 May 17, 2016 Exercise: no. May 17, 2016 Alcohol: no. May 17, 2016 Vital Signs Date/Time: April 15, 2016 Weight 200 lbs Height 66 in Temperature 96.8 F Cardiac Monitoring Heart Rate 80 /min Blood Pressure Diastolic 60 mm Hg Blood Pressure Systolic 120 mm Hg Summary Purpose eClinicalWorks Submission
--- OUTSIDE RECORDS SUMMARY | 2019-06-06 08:40 | XMS REPORT ---
Author Author Robert Reid eClinicalWorks Address Unknown Phone Unavailable Care Team Providers Care Director Of Nuclear Medicine Name Role Phone Robert Reid CP Unavailable [...] Reid MD April 15, 2015 1 MTH KELLIE Reid MD May 17, 2016 refill norco 09/10 Robert Reid MD Sep 09, 2014 1 MTH KELLIE Reid MD April 15, 2016 Triplicate-- Hydrocodone Robert Reid MD Oct 11, 2014 MRI Robert Reid MD Jun 17, 2016 ARYAA Robert Reid MD Jul 24, 2015 [...] Problem Sjogrens syndrome M35.00 Active Problem Other retirement (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 Z79.899 Active Problem Lymphopenia D72.810 Active Problem Rheumatoid arthritis without rheumatoid factor, multiple sites M06.09 Active Problem Postmenopausal status (age-related) V49.81 Active Problem Rheumatoid arthritis 714.0 Active Assessment Left elbow pain M25.522 Active Problem Sjogren's Disease 710.2 Active Problem Neutropenia, unspecified 288.00 Active Problem Long-term (current) use of other medications - High Risk V58.69 Active Social History Social History Element Qualifiers Date Reported Alcohol Screening: . Points: 0 Jun 17, 2016 Tobacco Use: . Are you a:: never smoker Jun 17, 2016 Marital Status: . Jun 17, 2016 Caffeine: yes. frequency: , 1-5 Jun 17, 2016 Exercise: no. Jun 17, 2016 Alcohol: no. Jun 17, 2016 Summary Purpose eClinicalWorks Submission
--- OUTSIDE RECORDS SUMMARY | 2019-06-06 08:40 | XMS REPORT ---
Author Author Eryn Hearn [facility] eClinicalWorks Address Unknown Phone Unavailable Care Team Providers Care Winery Cellar Hand Name Role Phone Eryn Hearn Unavailable Allergies, [...] Robert Reid MD Jul 24, 2015 1 MTH FU Robert Reid MD Aug 18, 2016 Refill- Tramadol Robert Reid MD Sep 03, 2015 1 MTH FU Robert Reid MD Sep 16, 2016 Unknown [...] Problem Sjogrens syndrome M35.00 Active Problem Other vermin exterminator (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 Z79.899 Active Problem Lymphopenia D72.810 Active Problem Rheumatoid arthritis without rheumatoid factor, multiple sites M06.09 Active Assessment Other vermin exterminator (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 Z79.899 Active Problem Postmenopausal status (age-related) V49.81 Active Problem Rheumatoid arthritis 714.0 Active Assessment Rheumatoid arthritis without rheumatoid factor, multiple sites M06.09 Active Problem Sjogren's Disease 710.2 Active Problem Neutropenia, unspecified 288.00 Active Problem Long-term (current) use of other medications - High Risk V58.69 Active Medications Medication Code System Code Instructions Start Date End Date Status Dosage Vitamin B12 [facility] [address]-76 Sublingual Once a day Active as directed Levoxyl [facility] [address]-26 100mg/150mg once a day Active 1 tablet of each Folic Acid [facility] 58873980647 1 Active TAKE TWO TABLETS BY MOUTH TWICE A DAY Vitamin D-3 [facility] 15813-[address] 1000 UNIT Orally Once a day Active 1 capsule Hydrocodone-Acetaminophen [facility] [address]-43 10-325 MG Orally three times a day Active 1 tablet as needed Vitamin D (Ergocalciferol) [facility] 61723280422 50,000 Active TAKE ONE CAPSULE BY MOUTH ONCE WEEKLY Iron [facility] [address]-66 65 MG Orally Once a day Active 1 tablet Voltaren [facility] [address]-54 1 % Transdermal Four times a day as needed Active as directed Plaquenil [facility] [address]-99 200 MG Active TAKE 2 TABLETS WITH FOOD OR MILK ONCE A DAY Tramadol Unknown 0 50 mg orally 4 - 6 hours as needed Active one tab Vitamin C [facility] [address]-38 1000 MG Orally Once a day Active 1 tablet Calcium Unknown 0 1000 mg orally daily Active one tab PredniSONE [facility] 45018568336 5 MG Orally Once a day March 15, 2017 Active take 2 tablets by mouth once a day with food Zofran [facility] [address]-11 8 MG Orally Active as needed Advil [facility] [address]-49 Orally as needed Active 1 tablet as needed Dicyclomine HCl [facility] [address]-70 10 MG Orally three times a day Active 1 capsule Multivitamins [facility] [address]-30 Orally Once a day Active 1 tablet Spironolactone [facility] [address]-01 25 MG Orally once a day Active 1 tablet Social History Social History Element Qualifiers Date Reported Alcohol Screening: . Points: 0 Sep 16, 2016 Tobacco Use: . Are you a:: never smoker Sep 16, 2016 Marital Status: . Sep 16, 2016 Caffeine: yes. frequency: , 1-5 Sep 16, 2016 Exercise: no. Sep 16, 2016 Alcohol: no. Sep 16, 2016 Vital Signs Date/Time: Sep 16, 2016 Weight 197.4 lbs Height 65 in Temperature 97.3 F Cardiac Monitoring Heart Rate 70 /min Blood Pressure Diastolic 70 mm Hg Blood Pressure Systolic 110 mm Hg Summary Purpose eClinicalWorks Submission
--- OUTSIDE RECORDS SUMMARY | 2019-06-06 08:40 | XMS REPORT ---
Author Author Robert Reid eClinicalWorks Address Unknown Phone Unavailable Care Team Providers Care Production Control Planner Name Role Phone Robert Reid CP Unavailable [...] MRI Robert Reid MD Jun 17, 2016 DEXA Robert Reid MD Jul 24, [...] Problem Sjogrens syndrome M35.00 Active Problem 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 Z79.899 Active Problem Lymphopenia D72.810 Active Problem Rheumatoid arthritis without rheumatoid factor, multiple sites M06.09 Active Assessment Sjogrens syndrome M35.00 Active Assessment Rheumatoid arthritis without rheumatoid factor, multiple sites M06.09 Active Assessment Chronic prescription opiate use Z79.891 Active Assessment Raynaud disease I73.00 Active Problem Postmenopausal status (age-related) V49.81 Active Problem Rheumatoid arthritis 714.0 Active Assessment Left elbow pain M25.522 Active Problem Sjogren's Disease 710.2 Active Problem Neutropenia, unspecified 288.00 Active Problem Long-term (current) use of other medications - High Risk V58.69 Active Medications Medication Code System Code Instructions Start Date End Date Status Dosage Levoxyl [facility] [address]-01 100mg/150mg once a day Active 1 tablet of each Iron [facility] [address]-20 65 MG Orally Once a day Active 1 tablet PredniSONE [facility] 29177826218 5 MG Active Take 2 tablets by mouth once a day with food Hydrocodone-Acetaminophen [facility] [address]-77 10-325 MG Orally three times a day Active 1 tablet as needed Vitamin D (Ergocalciferol) [facility] 78708411134 50,000 Active TAKE ONE CAPSULE BY MOUTH ONCE WEEKLY Multivitamins [facility] [address]-13 Orally Once a day Active 1 tablet Plaquenil [facility] [address]-04 200 MG Orally Once a day Active take 2 tablets with food or milk once a day orally Tramadol Unknown 0 50 mg orally 4 - 6 hours as needed Active one tab Zofran [facility] [address]-92 8 MG Orally Active as needed Vitamin D-3 [facility] 12019-26699 1000 UNIT Orally Once a day Active 1 capsule Calcium Unknown 0 1000 mg orally daily Active one tab Vitamin B12 [facility] [address]-26 Sublingual Once a day Active as directed Spironolactone [facility] [address]-88 25 MG Orally once a day Active 1 tablet Folic Acid [facility] 19829723725 1 Active TAKE TWO TABLETS BY MOUTH TWICE A DAY Voltaren [facility] [address]-17 1 % Transdermal Four times a day as needed December 14, 2016 Active as directed Dicyclomine HCl [facility] [address]-63 10 MG Orally three times a day Active 1 capsule Vitamin C [facility] [address]-50 1000 MG Orally Once a day Active 1 tablet Social History Social History Element Qualifiers Date Reported Alcohol Screening: . Points: 0 Jun 17, 2016 Tobacco Use: . Are you a:: never smoker Jun 17, 2016 Marital Status: . Jun 17, 2016 Caffeine: yes. frequency: , 1-5 Jun 17, 2016 Exercise: no. Jun 17, 2016 Alcohol: no. Jun 17, 2016 Vital Signs Date/Time: Jun 17, 2016 Weight 198 lbs Height 66 in Temperature 97.1 F Cardiac Monitoring Heart Rate 76 /min Blood Pressure Diastolic 72 mm Hg Blood Pressure Systolic 110 mm Hg Summary Purpose eClinicalWorks Submission
--- OUTSIDE RECORDS SUMMARY | 2019-06-06 08:40 | XMS REPORT ---
Author Author Eryn Hearn [facility] eClinicalWorks Address Unknown Phone Unavailable Care Team Providers Care Local Company Tanker Driver Name Role Phone Eryn Hearn Unavailable Allergies, [...] Problem Sjogrens syndrome M35.00 Active Problem Other fpc (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 Z79.899 Active Problem Lymphopenia D72.810 Active Problem Rheumatoid arthritis without rheumatoid factor, multiple sites M06.09 Active Assessment Other superintendent container terminal (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 Z79.899 Active Problem Postmenopausal status (age-related) V49.81 Active Problem Rheumatoid arthritis 714.0 Active Assessment Rheumatoid arthritis without rheumatoid factor, multiple sites M06.09 Active Problem Sjogren's Disease 710.2 Active Problem Neutropenia, unspecified 288.00 Active Problem Long-term (current) use of other medications - High Risk V58.69 Active Medications Medication Code System Code Instructions Start Date End Date Status Dosage PredniSONE [facility] 66778405990 5 MG Active Take 2 tablets by mouth once a day with food Dicyclomine HCl [facility] [address]-77 10 MG Orally three times a day Active 1 capsule Hydrocodone-Acetaminophen [facility] [address]-00 10-325 MG Orally three times a day Active 1 tablet as needed Plaquenil [facility] [address]-60 200 MG Active TAKE 2 TABLETS WITH FOOD OR MILK ONCE A DAY Spironolactone [facility] [address]-39 25 MG Orally once a day Active 1 tablet Oxycodone-Acetaminophen [facility] [address]-15 10-325 MG Orally every 6 hrs Active 1 tablet as needed Folic Acid [facility] 36773009134 1 Active TAKE TWO TABLETS BY MOUTH TWICE A DAY Multivitamins [facility] [address]-10 Orally Once a day Active 1 tablet Vitamin D (Ergocalciferol) [facility] 48866952668 50,000 Active TAKE ONE CAPSULE BY MOUTH ONCE WEEKLY Advil [facility] [address]-88 Orally as needed Active 1 tablet as needed Vitamin D-3 [facility] 29897-08323 1000 UNIT Orally Once a day Active 1 capsule Zofran [facility] [address]-56 8 MG Orally Active as needed Calcium Unknown 0 1000 mg orally daily Active one tab Vitamin B12 [facility] [address]-31 Sublingual Once a day Active as directed Vitamin C [facility] [address]-91 1000 MG Orally Once a day Active 1 tablet Voltaren [facility] [address]-13 1 % Transdermal Four times a day as needed Active as directed Iron [facility] [address]-05 65 MG Orally Once a day Active 1 tablet Levoxyl [facility] [address]-88 100mg/150mg once a day Active 1 tablet of each Tramadol Unknown 0 50 mg orally 4 - 6 hours as needed Active one tab Social History Social History Element Qualifiers Date Reported Alcohol Screening: . Points: 0 Aug 18, 2016 Tobacco Use: . Are you a:: never smoker Aug 18, 2016 Marital Status: . Aug 18, 2016 Caffeine: yes. frequency: , 1-5 Aug 18, 2016 Exercise: no. Aug 18, 2016 Alcohol: no. Aug 18, 2016 Vital Signs Date/Time: Aug 18, 2016 Weight 203 lbs Height 66 in Temperature 97.7 F Cardiac Monitoring Heart Rate 70 /min Blood Pressure Diastolic 60 mm Hg Blood Pressure Systolic 102 mm Hg Summary Purpose eClinicalWorks Submission
--- OUTSIDE RECORDS SUMMARY | 2019-06-06 08:40 | XMS REPORT ---
Author Author Eryn Hearn [facility] eClinicalWorks Address Unknown Phone Unavailable Care Team Providers Care Traffic Control Supervisor Name Role Phone Eryn Hearn Unavailable Encounters [...] Reid MD Nov 13, 2015 MRI Bi-hands oRbert Reid MD Dec 05, 2014 1 MTH [...] Problem Raynaud disease I73.00 Active Problem Other [facility] (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 Z79.899 Active Problem Osteopenia [...]
--- OUTSIDE RECORDS SUMMARY | 2019-06-06 08:40 | XMS REPORT ---
Author Author Robert Reid eClinicalWorks Address Unknown Phone Unavailable Care Team Providers Care Candy Department Manager Name Role Phone Robert Reid CP [...] MD Sep 09, 2014 1 [facility] F[facility] Rboert Reid MD April 15, 2016 Triplicate-- Hydrocodone Robert Reid MD Oct 11, 2014 1mth follow up Robert Reid MD Jun 17, 2016 MRI Robert Reid MD Jun 17, 2016 1 [facility] Robert Reid MD Jul 19, 2016 DEXA Robert Reid MD Jul 24, 2015 1 [facility] Robert Reid MD Aug 18, 2016 [...] ICD-9 Code Onset Dates Condition Status Problem Osteopenia M85.80 Active Problem Raynaud disease I73.00 Active Problem Left elbow pain M25.522 Active Problem Chronic prescription opiate use Z79.891 Active Problem Sjogrens syndrome M35.00 Active Problem Other fdc (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 Z79.899 Active Problem Lymphopenia D72.810 Active Problem Rheumatoid arthritis without rheumatoid factor, multiple sites M06.09 Active Social History Social History Element Qualifiers Date Reported Alcohol Screening: . Points: 0 Oct 15, 2016 Tobacco Use: . Are you a:: never smoker Oct 15, 2016 Marital Status: . Oct 15, 2016 Caffeine: yes. frequency: , 1-5 Oct 15, 2016 Exercise: no. Oct 15, 2016 Alcohol: no. Oct 15, 2016 Summary Purpose eClinicalWorks Submission
--- OUTSIDE RECORDS SUMMARY | 2019-06-06 08:40 | XMS REPORT ---
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.899 Active Problem Rheumatoid arthritis 714.0 Active Assessment Rheumatoid arthritis without rheumatoid factor, multiple sites M06.09 Active Problem Sjogren's Disease 710.2 Active Medications Medication Code System Code Instructions Start Date End Date Status Dosage Calcium Unknown 0 1000 mg orally daily Active one tab Hydrocodone-Acetaminophen [facility] [address]-99 10-325 MG Orally three times a day Jun 16, 2016 Active 1 tablet as needed Vitamin C [facility] [address]-34 1000 MG Orally Once a day Active 1 tablet Multivitamins [facility] [address]-06 Orally Once a day Active 1 tablet Folic Acid [facility] 56887271846 1 Active TAKE TWO TABLETS BY MOUTH TWICE A DAY Tramadol Unknown 0 50 mg orally 4 - 6 hours as needed Active one tab Spironolactone [facility] [address]-23 25 MG Orally once a day Active 1 tablet Voltaren [facility] [address]-24 1 % Transdermal prn Active as directed Iron [facility] [address]-12 65 MG Orally Once a day Active 1 tablet Dicyclomine HCl [facility] [address]-07 10 MG Orally three times a day Active 1 capsule Vitamin D (Ergocalciferol) [facility] 97044257391 50,000 Active TAKE ONE CAPSULE BY MOUTH ONCE WEEKLY PredniSONE [facility] 78524737542 5 MG Active Take 2 tablets by mouth once a day with food Zofran [facility] [address]-43 8 MG Orally Active as needed Vitamin D-3 [facility] 40260-[address]4835 1000 UNIT Orally Once a day Active 1 capsule Vitamin B12 [facility] [address]-65 Sublingual Once a day Active as directed Plaquenil [facility] [address]-88 200 MG Orally Once a day Aug 15, 2016 Active take 2 tablets with food or milk once a day orally Levoxyl [facility] [address]-71 100mg/150mg once a day Active 1 tablet of each Social History Social History Element Qualifiers Date Reported Alcohol Screening: . Points: 0 May 17, 2016 Tobacco Use: . Are you a:: never smoker May 17, 2016 Marital Status: . May 17, 2016 Caffeine: yes. frequency: , 1-5 May 17, 2016 Exercise: no. May 17, 2016 Alcohol: no. May 17, 2016 Vital Signs Date/Time: May 17, 2016 Weight 201 lbs Height 65 in Temperature 98.4 F Cardiac Monitoring Heart Rate 80 /min Blood Pressure Diastolic 60 mm Hg Blood Pressure Systolic 108 mm Hg Summary Purpose eClinicalWorks Submission
--- OUTSIDE RECORDS SUMMARY | 2019-06-06 08:41 | XMS REPORT ---
Author Author Eryn Hearn [facility] eClinicalWorks Address Unknown Phone Unavailable Care Team Providers Care Sales Attendant Name Role Phone Eryn Hearn Unavailable Allergies, [...] F/U Robert Reid MD Jul 10, 2015 3 [facility] F[facility] Robert Reid MD December 12, 2015 rx refill Robert Reid MD December 15, 2015 Refill- Tramadol, Plaquenil, Prednisone Robert Reid MD December 11, 2015 MRI Robert Reid MD February 01, 2016 1 [facility] FU Robert Reid MD February 16, 2016 1 [facility] Robert Reid MD Nov 13, 2015 1 [facility] Robert Reid MD January 12, 2016 CLARIFICATION Robert Reid MD May 14, 2016 1mth follow up Robert Reid MD March 19, 2016 Refill- Tramadol Robert Reid MD May 05, 2016 1 [facility] Robert Reid MD May 17, 2016 1 [facility] Robert Reid MD April 15, 2016 1mth follow up Robert Reid MD Jun 17, 2016 MRI Robert Reid MD Jun 17, 2016 1 [facility] Robert Reid MD Jul 19, 2016 1 [facility] Robert Reid MD Aug 18, 2016 1 [facility] Robert Reid MD Sep 16, 2016 Records Robert Reid MD Oct 15, 2016 1 [facility] Robert Reid MD Oct 15, 2016 1 [facility] Robert Reid MD Nov 17, 2016 Problems Problem Type Condition ICD-9 Code Onset Dates Condition Status Assessment Other [facility] (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 Z79.899 Active Problem Osteopenia M85.80 Active Assessment Rheumatoid arthritis without rheumatoid factor, multiple sites M06.09 Active Problem Raynaud disease I73.00 Active Problem Left elbow pain M25.522 Active Problem Chronic prescription opiate use Z79.891 Active Problem Sjogrens syndrome M35.00 Active Problem 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 Active Problem Lymphopenia D72.810 Active Problem Rheumatoid arthritis without rheumatoid factor, multiple sites M06.09 Active Medications Medication Code System Code Instructions Start Date End Date Status Dosage Hydrocodone-Acetaminophen [facility] [address]-31 10-325 MG Orally three times a day Active 1 tablet as needed Multivitamins [facility] [address]-54 Orally Once a day Active 1 tablet Advil [facility] [address]-50 Orally as needed Active 1 tablet as needed Zofran [facility] [address]-55 8 MG Orally Active as needed Calcium Unknown 0 1000 mg orally daily Active one tab Voltaren [facility] [address]-34 1 % Transdermal Four times a day as needed Active as directed Dicyclomine HCl [facility] [address]-79 10 MG Orally three times a day Active 1 capsule Plaquenil [facility] [address]-66 200 MG Active TAKE 2 TABLETS WITH FOOD OR MILK ONCE A DAY Folic Acid [facility] 52656947372 1 Active TAKE TWO TABLETS BY MOUTH TWICE A DAY Tramadol Unknown 0 50 mg orally 4 - 6 hours as needed Active one tab Vitamin C [facility] [address]-93 1000 MG Orally Once a day Active 1 tablet Vitamin B12 [facility] [address]-36 Sublingual Once a day Active as directed PredniSONE [facility] 92399774610 5 MG Orally Once a day Active take 2 tablets by mouth once a day with food Spironolactone [facility] [address]-29 25 MG Orally once a day Active 1 tablet Vitamin D (Ergocalciferol) [facility] 22359577597 50,000 Active TAKE ONE CAPSULE BY MOUTH ONCE WEEKLY Iron [facility] [address]-41 65 MG Orally Once a day Active 1 tablet Levoxyl [facility] [address]-19 100mg/150mg once a day Active 1 tablet of each Vitamin D-3 [facility] [address]1418 1000 UNIT Orally Once a day Active 1 capsule Social History Social History Element Qualifiers Date Reported Alcohol Screening: . Points: 0 Nov 17, 2016 Tobacco Use: . Are you a:: never smoker Nov 17, 2016 Marital Status: . Nov 17, 2016 Caffeine: yes. frequency: , 1-5 Nov 17, 2016 Exercise: no. Nov 17, 2016 Alcohol: no. Nov 17, 2016 Vital Signs Date/Time: Nov 17, 2016 Weight 196 lbs Height 65 in Temperature 98.4 F Cardiac Monitoring Heart Rate 72 /min Blood Pressure Diastolic 70 mm Hg Blood Pressure Systolic 112 mm Hg Summary Purpose eClinicalWorks Submission
--- OUTSIDE RECORDS SUMMARY | 2019-06-06 08:41 | XMS REPORT ---
Author Author Robert Reid Organization eClinicalWorks Address Unknown Phone Unavailable Care Team Providers Care Precision Mechanical Instrument Maker Name Role Phone Robert Reid CP [...]
--- OUTSIDE RECORDS SUMMARY | 2019-06-06 08:41 | XMS REPORT ---
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
--- OUTSIDE RECORDS SUMMARY | 2019-06-06 08:41 | XMS REPORT ---
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
--- OUTSIDE RECORDS SUMMARY | 2019-06-06 08:41 | XMS REPORT ---
Author Author Eryn Hearn [facility] eClinicalWorks Address Unknown Phone Unavailable Care Team Providers Care Aircraft Riveter Name Role Phone Eryn Hearn Unavailable Allergies, [...] Robert Reid MD February 01, 2016 1 [facility] FU Robert Reid MD February 16, 2016 1 [facility] Robert Reid MD Nov 13, 2015 1 [facility] Robert Reid MD January 12, 2016 CLARIFICATION Robert Reid MD May 14, 2016 1mth follow up Robert Reid MD March 19, 2016 Refill- Tramadol Robert Reid MD May 05, 2016 1 [facility] Robert Reid MD May 17, 2016 1 [facility] Robert Reid MD April 15, 2016 1mth follow up Robert Redi MD Jun 17, 2016 MRI Robert Reid MD Jun 17, 2016 1 [facility] Robert Reid MD Jul 19, 2016 1 [facility] Robert Reid MD Aug 18, 2016 1 [facility] Robert Reid MD Sep 16, 2016 Records Robert Reid MD Oct 15, 2016 1 [facility] Robert Reid MD Oct 15, 2016 1 [facility] Robert Reid MD Nov 17, 2016 Problems Problem Type Condition ICD-9 Code Onset Dates Condition Status Assessment Other retirement (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 Z79.899 Active Problem Osteopenia M85.80 Active Assessment Rheumatoid arthritis without rheumatoid factor, multiple sites M06.09 Active Problem Raynaud disease I73.00 Active Problem Left elbow pain M25.522 Active Problem Chronic prescription opiate use Z79.891 Active Problem Sjogrens syndrome M35.00 Active Problem 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.899 Active Problem Lymphopenia D72.810 Active Problem Rheumatoid arthritis without rheumatoid factor, multiple sites M06.09 Active Medications Medication Code System Code Instructions Start Date End Date Status Dosage Hydrocodone-Acetaminophen [facility] [address]-24 10-325 MG Orally three times a day Active 1 tablet as needed Multivitamins [facility] [address]-80 Orally Once a day Active 1 tablet Advil [facility] [address]-11 Orally as needed Active 1 tablet as needed Zofran [facility] [address]-87 8 MG Orally Active as needed Calcium Unknown 0 1000 mg orally daily Active one tab Voltaren [facility] [address]-82 1 % Transdermal Four times a day as needed Active as directed Dicyclomine HCl [facility] [address]-19 10 MG Orally three times a day Active 1 capsule Plaquenil [facility] [address]-30 200 MG Active TAKE 2 TABLETS WITH FOOD OR MILK ONCE A DAY Folic Acid [facility] 59913485929 1 Active TAKE TWO TABLETS BY MOUTH TWICE A DAY Tramadol Unknown 0 50 mg orally 4 - 6 hours as needed Active one tab Vitamin C [facility] [address]-62 1000 MG Orally Once a day Active 1 tablet Vitamin B12 [facility] [address]-88 Sublingual Once a day Active as directed PredniSONE [facility] 63591870967 5 MG Orally Once a day Active take 2 tablets by mouth once a day with food Spironolactone [facility] [address]-50 25 MG Orally once a day Active 1 tablet Vitamin D (Ergocalciferol) [facility] 57536152097 50,000 Active TAKE ONE CAPSULE BY MOUTH ONCE WEEKLY Iron [facility] [address]-68 65 MG Orally Once a day Active 1 tablet Levoxyl [facility] [address]-30 100mg/150mg once a day Active 1 tablet of each Vitamin D-3 [facility] 77472-[address]10 1000 UNIT Orally Once a day Active [...]
--- OUTSIDE RECORDS SUMMARY | 2019-06-06 08:41 | XMS REPORT ---
Author Author [facility] Address Unknown Phone Unavailable Care Team Providers Care Costumed Character Name Role Phone VIRGINIA LEBLANC Unavailable Unavailable Payers Payer Name Policy Type Policy Number Effective Date Expiration Date Problems This patient has no known problems. Allergies, Adverse Reactions, Alerts Allergy Name Allergy Type Status Severity Reaction(s) Onset Date Inactive Date Treating Clinician Comments Sulfa (Sulfonamide Antibiotics) DA Active MO 2017-08-26 00:00:00 docetaxel DA Active SV 2017-08-26 00:00:00 Medications This patient has no known medications. Results Test Description Test Time Test Comments Text Results Atomic Results Result Comments CT ABDOMEN/PELVIS W 2019-05-18 10:06:00 [facility] [address] [place] [address] Patient Name: ISABELLA CARCAMO MR #: [id number] : 1965 Age/Sex: 54/F Req #: [id number] Adm Physician: Ordered by: VIRGINIA LEBLANC MD Report #: [id number] Location: CT Room/Bed: Procedure: [id number] CT/CT ABDOMEN/PELVIS W Exam Date: 05/18/19 Exam Time: 0930 REPORT STATUS: Signed EXAM: CT Abdomen and Pelvis WITH intravenous contrast INDICATION: Abnormal weight loss, nausea, vomiting. Personal history of gastric cancer COMPARISON: None. TECHNIQUE: Abdomen and pelvis were scanned utilizing a multidetector helical scanner from the lung base to the pubic symphysis after administration of IV contrast. Coronal and sagittal reformations were obtained. Routine protocol was performed. Scan was performed when during portal venous phase. IV CONTRAST: 100mL of Isovue 370 ORAL CONTRAST: Water COMPLICATIONS: None RADIATION DOSE: Total DLP: 559.7 mGy*cm Dose modulation, iterative reconstruction, and/or weight based adjustment of the mA/kV was utilized to reduce the radiation dose to as low as reasonably achievable. FINDINGS: LOWER THORAX: No focal lung base consolidation. Atherosclerotic coronary artery calcifications. HEPATOBILIARY: Hepatic steatosis. No focal liver lesions. Status post cholecystectomy. SPLEEN: Diminutive spleen. PANCREAS: Fatty atrophy of the pancreatic tail. Pancreas head not well visualized. ADRENALS: No adrenal nodules. KIDNEYS/URETERS: No hydronephrosis, stones, or solid mass lesions. PELVIC ORGANS/BLADDER: Unremarkable. PERITONEUM / RETROPERITONEUM: No free air or fluid. LYMPH NODES: No lymphadenopathy. VESSELS: Atherosclerotic arterial calcifications, most notably an extremely densely calcified splenic artery. GI TRACT: Status post gastrectomy. No evidence of bowel obstruction. Mild wall thickening of the descending and sigmoid colon. BONES AND SOFT TISSUES: Mild diffuse muscular atrophy. Postoperative changes of the anterior abdominal wall. Age indeterminate T12 compression fracture. Multilevel degenerative changes of the spine. Diffuse osteopenia. No suspicious lytic or blastic lesions. IMPRESSION: Mild wall thickening of the descending and sigmoid colon could be seen in colitis. Postoperative changes of prior gastrectomy. Hepatic steatosis. Age-indeterminate T12 compression fracture. Signed by: Tamie Srinivasan MD on 05/18/2019 10:16 AM Dictated By: TAMIE SRINIVASAN MD [id number] Transcribed By: MELINDA on 05/18/19 1016 COPY TO: VIRGINIA LEBLANC MD
[2019-06-06 13:35] VITALS: BP 107/77
--- NOTE | 2019-06-06 15:22 | Operative Report ---
DATE OF PROCEDURE: 06/06/2019 SURGEON: Gary Pritchett MD PROCEDURES: EGD with biopsies and a colonoscopy with polypectomy and biopsies. INDICATIONS FOR EGD: Early satiety, nausea, vomiting, marked weight loss. INDICATIONS FOR COLONOSCOPY: Colorectal cancer screening. MEDICATIONS: The patient was done under MAC, please see anesthesiologist's note. PROCEDURE IN DETAIL: With the patient in the left lateral decubitus position, a flexible fiberoptic Olympus gastroscope was introduced into the esophagus under direct visualization without any difficulty. The esophagus appeared to be within normal limits. The scope was then advanced into the stomach and the patient is status post gastrectomy for CA of the stomach with Amari-en-Y anastomosis. Anastomosis appeared intact. There were no marginal ulcers. The efferent loop was intubated and the scope was advanced into the efferent loop, which was patent and biopsies were obtained. The scope was then withdrawn and the patient tolerated the procedure well. IMPRESSION: 1. Normal esophagus. 2. Status post Amari-en-Y for CA of stomach. Anastomosis intact. No evidence of marginal ulcers. 3. Efferent loop patent. PLAN: Follow up histology. Increase Protonix to 40 mg one p.o. before meals b.i.d. The patient was then turned around and after adequate lubrication of the anal canal, a flexible fiberoptic Olympus colonoscope was inserted into the rectum with ease and advanced all the way to the cecum. The mucosa overlying the cecum appeared to be within normal limits. The ileocecal valve was intubated and the scope was advanced into the terminal ileum. The mucosa revealed some mild patchy inflammatory changes and biopsies were obtained. The scope was then withdrawn back into the colon. It was then withdrawn slowly, the mucosa overlying the ascending grossly appeared to be within normal limits. Of note, the colon was excessively spastic and irritable and visualization was suboptimal. One polyp was hot biopsied from the transverse colon. One polyp was snared from the descending colon. Some mild patchy inflammatory changes were noted in the left colon and the rectum and biopsies were obtained. Some minimal diverticulosis was also noted. The scope was then retroflexed into the distal rectum and small internal hemorrhoids were noted, none of which was actively bleeding. The scope was then straightened out, it was subsequently withdrawn, and the patient tolerated the procedure well. IMPRESSION: 1. Colon excessively spastic and irritable, suboptimally visualized. 2. Transverse colon polyp, hot biopsied. 3. Descending colon polyp, snared. 4. Mild patchy left-sided colitis. 5. Diverticulosis, minimal. 6. Internal hemorrhoids, none actively bleeding. PLAN: Follow up histology. Initiate Visbiome 1 p.o. b.i.d. The patient might benefit from a followup colonoscopy in 3 to 5 years. Gary Pritchett MD [facility] /[id number] cc: Kranthi Sam
== END | disposition home or self-care (01) ==
LOC: OR 07:54
PROVIDERS: ATTEND Internal Medicine Gastroenterology
DX: R63.4 Abnormal weight loss (principal); D12.3 Benign neoplasm of transverse colon; K51.50 Left sided colitis without complications; K21.9 Gastro-esophageal reflux disease without esophagitis; K57.30 Diverticulosis of large intestine without perforation or abscess without bleeding; K64.8 Other hemorrhoids; Z90.3 Acquired absence of stomach [part of]; E11.9 Type 2 diabetes mellitus without complications; E03.9 Hypothyroidism, unspecified; R68.81 Early satiety; R11.2 Nausea with vomiting, unspecified; R03.0 Elevated blood-pressure reading, without diagnosis of hypertension; M06.9 Rheumatoid arthritis, unspecified; M32.9 Systemic lupus erythematosus, unspecified; K74.60 Unspecified cirrhosis of liver; Z88.2 Allergy status to sulfonamides; Z01.810 Encounter for preprocedural cardiovascular examination; Z01.812 Encounter for preprocedural laboratory examination; Z79.84 Long term (current) use of oral hypoglycemic drugs; Z79.52 Long term (current) use of systemic steroids; Z68.29 Body mass index [BMI] 29.0-29.9, adult; Z85.028 Personal history of other malignant neoplasm of stomach
CPT/HCPCS: 36415; 43239; 45380; 45384; 45385; 80053; 85025; 85610; 85730; 93005; J2250; J2704; J3010; 45378

== ENCOUNTER → 2020-11-03 | Day surgery (SDC) | payer MEDICARE ==
[2020-10-30 08:57] LABS: BASOPHILS % 0.2 % (0.0-1.0); HEMOGLOBIN 11.9 g/dL (12.0-16.0); LYMPHOCYTES # (AUTO) 0.5 (1.0-3.2); LYMPHOCYTES % 7.7 % (18.0-39.1); MEAN CORPUSCULAR HGB CONC 32.2 g/dL (31-35); MEAN CORPUSCULAR VOLUME 102.5 fL (81-99); MONOCYTES # (AUTO) 0.2 (0.2-0.8); MONOCYTES % 3.8 % (4.4-11.3); NEUTROPHILS # (AUTO) 5.1 (2.1-6.9); NEUTROPHILS % 87.6 % (38.7-80.0); PLATELET COUNT 113 x10e3/uL (140-360); RED BLOOD COUNT 3.61 x10e6/uL (3.6-5.1); RED CELL DISTRIBUTION WIDTH 13.6 % (11.7-14.4)
[2020-10-30 09:09] LABS: INR 1.07; PROTHROMBIN TIME 14.6 seconds (11.9-14.5)
[2020-10-30 09:17] LABS: ALANINE AMINOTRANSFERASE 49 IU/L (0-55); ALBUMIN 2.5 g/dL (3.5-5.0); ALBUMIN/GLOBULIN RATIO 0.9 (0.8-2.0); ALKALINE PHOSPHATASE 126 IU/L (40-150); ANION GAP 9.9 mmol/L (8-16); BLOOD UREA NITROGEN 9 mg/dL (7-26); BUN/CREATININE RATIO 13 (6-25); CALCIUM 7.9 mg/dL (8.4-10.2); CARBON DIOXIDE 27 mmol/L (22-29); CHLORIDE 108 mmol/L (98-107); EST GLOMERULAR FILTRATION RATE > 60 ML/MIN (60-); GLUCOSE 88 mg/dL (74-118); POTASSIUM 4.9 mmol/L (3.5-5.1); SODIUM 140 mmol/L (136-145)
[~2020-11-03] MED LIST changes: +ALENDRONAT70 MG/75 M PO; -FENTANYL CITRATE/PF 100MCG/2 ML INJ ONE; -HYOSCYAMINE 0.125 MG TAB ONE; -LEVOTHYROXINE125 MCG PEG; +LEVOTHYROXINE125 MCG PO; +LIDOCAINE HCL 2% LOCAL INJ 5 ML SDV VIAL INJ ONE; -MIDAZOLAM HCL 2 MG/2 ML VIAL ONE; +PROPOFOL IV EMULSION 10 MG/ML 20 ML VIAL ONE; -PROPOFOL IV EMULSION 10 MG/ML 50 ML VIAL ONE
[2020-11-03 08:45] VITALS: BP 117/70
[2020-11-03 09:19] LABS: ALBUMIN 2.5 g/dL (3.5-5.0); BILIRUBIN,DIRECT 0.4 mg/dL (0.0-0.5)
== END | disposition home or self-care (01) ==
LOC: OR 05:54
PROVIDERS: ATTEND Internal Medicine Gastroenterology
DX: Z08 Encounter for follow-up examination after completed treatment for malignant neoplasm (principal); Z85.028 Personal history of other malignant neoplasm of stomach; Z86.010 Personal history of colon polyps; K31.84 Gastroparesis; K21.9 Gastro-esophageal reflux disease without esophagitis; Z90.3 Acquired absence of stomach [part of]; R74.8 Abnormal levels of other serum enzymes; K58.9 Irritable bowel syndrome, unspecified; K74.60 Unspecified cirrhosis of liver; T14.8XXA Other injury of unspecified body region, initial encounter; M06.9 Rheumatoid arthritis, unspecified; R42 Dizziness and giddiness; I25.10 Atherosclerotic heart disease of native coronary artery without angina pectoris; I83.90 Asymptomatic varicose veins of unspecified lower extremity; E11.9 Type 2 diabetes mellitus without complications; E03.9 Hypothyroidism, unspecified; M32.9 Systemic lupus erythematosus, unspecified; M81.0 Age-related osteoporosis without current pathological fracture; X58.XXXA Exposure to other specified factors, initial encounter; Z88.2 Allergy status to sulfonamides; Z01.810 Encounter for preprocedural cardiovascular examination; Z01.812 Encounter for preprocedural laboratory examination; Z20.822 Contact with and (suspected) exposure to COVID-19
CPT/HCPCS: 36415 ×2; 43239; 80053; 80076; 82607; 82746; 85025; 85045; 85610; 85730; 93005; J2001; J2704; U0002

== ENCOUNTER → 2023-02-17 | Outpatient (CLI) | payer MEDICARE ==
[~2023-02-17] MED LIST changes: +ADVAIR 250-501 EACH INH; +ATORVASTATIN CA20 MG PO; +B COMPLEX1 EACH PO; +IOPAMIDOL 370 MG/ML 100 ML INFUS..BTL INJ ONE; -LIDOCAINE HCL 2% LOCAL INJ 5 ML SDV VIAL INJ ONE; +METOPROLOL TARTRATE INJ 1 MG/ML VIAL ONE; +NITROGLYCERIN 0.4 MG SUBL ONE; +PROBIOTIC GUMMY PO; -PROPOFOL IV EMULSION 10 MG/ML 20 ML VIAL ONE; +RECLAST 55 MG/100 M IART; +SODIUM CHLORIDE 0.9% 100 ML ONE; +SODIUM CHLORIDE 0.9% 250ML 250 ML ONE; +XARELTO15 MG PO
== END ==
LOC: CT 08:26
PROVIDERS: ATTEND Internal Medicine Cardiovascular Disease
DX: Z01.810 Encounter for preprocedural cardiovascular examination (principal); I20.9 Angina pectoris, unspecified
CPT/HCPCS: 0502T; 0503T; 75574; J7050 ×2; Q9967

== ENCOUNTER → 2023-03-03 | Day surgery (SDC) | payer MEDICARE ==
[2023-03-01 11:35] LABS: BASOPHILS % 0.5 % (0.0-1.0); EOSINOPHILS % 0.2 % (0.0-6.0); HEMATOCRIT 31.6 % (34.2-44.1); HEMOGLOBIN 10.3 g/dL (12.0-16.0); LYMPHOCYTES # (AUTO) 0.6 (1.0-3.2); LYMPHOCYTES % 12.5 % (18.0-39.1); MEAN CORPUSCULAR HEMOGLOBIN 32.3 pg (28-32); MEAN CORPUSCULAR HGB CONC 32.6 g/dL (31-35); MEAN CORPUSCULAR VOLUME 99.1 fL (81-99); MONOCYTES # (AUTO) 0.3 (0.2-0.8); MONOCYTES % 5.9 % (4.4-11.3); NEUTROPHILS # (AUTO) 3.5 (2.1-6.9); NEUTROPHILS % 80.4 % (38.7-80.0); PLATELET COUNT 116 x10e3/uL (140-360); RED BLOOD COUNT 3.19 x10e6/uL (3.6-5.1); RED CELL DISTRIBUTION WIDTH 13.2 % (11.7-14.4)
[2023-03-01 11:50] LABS: INR 1.23
[2023-03-01 11:51] LABS: PARTIAL THROMBOPLASTIN TIME 36.3 seconds (23.8-35.5)
[2023-03-01 11:59] LABS: ALBUMIN 2.8 g/dL (3.5-5.0); ALBUMIN/GLOBULIN RATIO 0.9 (0.8-2.0); ANION GAP 9.8 mmol/L (8-16); CALCIUM 8.7 mg/dL (8.4-10.2); CREATININE, SERUM 0.61 mg/dL (0.57-1.11); POTASSIUM 4.8 mmol/L (3.5-5.1)
[~2023-03-03] MED LIST changes: +DEXTROSE 5% 250ML 250 ML IV ONE; +FENTANYL CITRATE/PF 100MCG/2 ML INJ ONE; -IOPAMIDOL 370 MG/ML 100 ML INFUS..BTL INJ ONE; +LACTATED RINGER'S 1,000 ML ONE; +LIDOCAINE HCL 2% LOCAL INJ 5 ML SDV VIAL INJ ONE; -METOPROLOL TARTRATE INJ 1 MG/ML VIAL ONE; -NITROGLYCERIN 0.4 MG SUBL ONE; +PROPOFOL IV EMULSION 10 MG/ML 20 ML VIAL ONE; -SODIUM CHLORIDE 0.9% 100 ML ONE; -SODIUM CHLORIDE 0.9% 250ML 250 ML ONE
[2023-03-03 07:24] VITALS: TEMP 98.4
[2023-03-03 07:40] VITALS: BP 111/64; PULSE 74; RESP 16; O2SAT 100
== END | disposition home or self-care (01) ==
LOC: OR 07:24
PROVIDERS: ATTEND Internal Medicine Gastroenterology
DX: K29.70 Gastritis, unspecified, without bleeding (principal); Z85.028 Personal history of other malignant neoplasm of stomach; K21.9 Gastro-esophageal reflux disease without esophagitis; K74.60 Unspecified cirrhosis of liver; Z98.84 Bariatric surgery status; Z90.3 Acquired absence of stomach [part of]; R63.4 Abnormal weight loss; E78.5 Hyperlipidemia, unspecified; E11.9 Type 2 diabetes mellitus without complications; E03.9 Hypothyroidism, unspecified; M32.9 Systemic lupus erythematosus, unspecified; M19.90 Unspecified osteoarthritis, unspecified site; Z88.2 Allergy status to sulfonamides; Z01.812 Encounter for preprocedural laboratory examination; Z79.02 Long term (current) use of antithrombotics/antiplatelets; Z79.899 Other long term (current) drug therapy; Z86.711 Personal history of pulmonary embolism; Z86.718 Personal history of other venous thrombosis and embolism; Z92.3 Personal history of irradiation
CPT/HCPCS: 36415 ×2; 43239; 80053; 82948; 85025; 85610; 85730; C9113; J2001; J2704; J3010; J7070; J7121